=== PATIENT | male | born 1985 | race Caucasian/White ===

== ENCOUNTER 2024-02-22 09:04 | Emergency (ER) | payer MEDICAID, OTHER, SELFPAY ==
[2024-02-22 09:45] VITALS: BP 118/72; PULSE 83; RESP 16; TEMP 36.3; O2SAT 98; BMI 26.0
--- NOTE | 2024-02-22 10:05 | ECG_ITS ---
Test Reason : chest pain Blood Pressure : / mmHG Vent. Rate : 070 BPM Atrial Rate : 070 BPM P-R Int : 152 ms QRS Dur : 080 ms QT Int : 386 ms P-R-T Axes : 030 -04 -04 degrees QTc Int : 416 ms Normal sinus rhythm Normal ECG No previous ECGs available Referred By: Generic ED Physician Electronically Signed By:OLVIN HOFFMAN MD
--- NOTE | 2024-02-22 11:21 | ED.ANXIETY ---
HPI - Anxiety General Chief Complaint: Anxiety Stated Complaint: medication Time Seen by Provider: 02/22/24 11:21 Source: patient and old records reviewed Mode of arrival: ambulatory Limitations: no limitations History of Present Illness ED Provider: Torri Ochoa PA-C HPI narrative: 39-year-old [place] Macedonian speaking male with history of anxiety and depression presents to the ER for evaluation of increased anxiety and depression, over the last month, acutely worsened last 3 days. He states he recently moved here about 2 months ago from [place]. In a new place with a new job has made him very anxious and depressed. He states it is debilitating. He has not sleeping. He has significant chest pain and reports of anxiety crisis that occurs often. He has had chest pains with anxiety for years. 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 States he has been on Cymbalta and clonazepam with minimal improvement in his symptoms. Prior to this he was on a different antidepressant and a different benzodiazepine when he lived in [facility] 1 year ago and he reported no improvement with those medications either. He comes to the hospital today hoping to get med adjustments. He has a PCP in the area, with appointment in 7 months. Does not have a psychiatrist or therapist. He denies any suicidal or homicidal thoughts. No hallucinations. No drugs or alcohol. MD complaint: anxiety and other (Chest pain and depression) Onset (ago): month(s) Symptoms: chest pain and extremity numbness/tingling Severity: severe Quality: worsening Place: home History of similar episodes: Yes Provoking factors: other (Moving to a new location) Relieving factors: nothing Exacerbating factors: nothing Associated symptoms: chest pain and malaise Related Data Allergies Allergy/AdvReac Type Severity Reaction Status Date / Time No Known Allergies Allergy Verified 02/22/24 10:02 Review of Systems Review of Systems: Yes all other systems are reviewed and are negative [facility] Social History Social History Advance Directives: No Advance Directives Information Provided: No Physical Exam Vital Signs: Vital Signs: Last Vital Signs Temp 97.3 F 02/22/24 09:45 Pulse 83 02/22/24 09:45 Resp 16 02/22/24 09:45 BP 118/72 02/22/24 09:45 Pulse Ox 98 02/22/24 09:45 O2 Del Method Room Air 02/22/24 09:45 BMI result Body Mass Index 26.0 Appearance: Alert. Oriented X3. No acute distress. Head: normocephalic, atraumatic. Eyes: Pupils equal, round and reactive to light. ENT: Pharynx normal. No tonsillar swelling or exudate. Neck: Normal inspection. Neck supple. CVS: Normal heart rate and rhythm. Pulses normal. Respiratory: No respiratory distress. Breath sounds normal. Abdomen: Soft and nontender. +BS x4 Skin: Skin warm and dry. Normal skin color. Normal skin turgor. No rashes. Extremities: No lower extremity edema. No joint swelling. Neuro/psych: Oriented X 3. No motor deficit. No sensory deficit. CN II-XII intact. Normal speech and cognition. no SI or HI. good insight and judgement Course Reevaluation(s) Reevaluation #1: Physician observation started at 12:41. Patient placed in physician observation because patient is awaiting CARE team evaluation for the possible need of inpatient psych admission. At the time observation was started patient's vital signs were stable. Patient is alert and oriented. Neuro exam is non-focal. CV: RRR and lungs are clear. Will continue to monitor. Time: 12:41 Medical Decision Making Medical Decision Making [facility] Narrative: 39-year-old male presents to the ER for evaluation of worsening anxiety and depression. Symptoms accompanying this are insomnia, chest pain, fatigue. Chest pain is acute on chronic, has had cardiac workup in the past. EKG here without any ischemic changes. Patient's lab workup is unremarkable. He is medically cleared to be seen by the care team for evaluation. Differential Diagnosis Differential Diagnoses: The differential diagnosis associated with the presentation includes anxiety disorder, substance induced mood disorder, acute psychosis, schizophrenia, schizoaffective disorder, PTSD, bipolar disorder, major depression with psychotic features Admission/Observation Consideration of admission/observation: Escalation of care including admission/observation considered Lab Data [facility] Lab Attestation statement: I reviewed the patient's lab results. Normal CBC 02/22/24 11:59 02/22/24 11:59 Labs: Lab Results 02/22/24 Range/Units 11:59 WBC 9.6 (4.8-10.8) X10*3/uL RBC 4.87 (4.60-5.80) X10*6/uL Hgb 15.7 (14.0-18.0) g/dl Hct 44.2 (42.0-52.0) % MCV 90.8 (80.0-98.0) fL MCH 32.2 (27.0-33.0) pg MCHC 35.5 (31.0-36.0) g/dl RDW 12.2 (11.0-16.0) % Plt Count 191 (160-400) X10*3/uL MPV 9.4 (9.4-12.4) fL Immature Gran % (Auto) 0.3 (0.0-0.4) % Neut % (Auto) 55.0 (45-73) % Lymph % (Auto) 35.4 (20-40) % [place] % (Auto) 7.2 (2-11) % Eos % (Auto) 1.7 (0-4) % Baso % (Auto) 0.4 (0-2) % Lymph # (Auto) 3.4 (1.2-4.9) X10*3/uL [place] # (Auto) 0.7 (0.1-1.2) X10*3/uL Eos # (Auto) 0.2 (0.0-0.4) X10*3/uL Baso # (Auto) 0.0 (0.0-0.2) X10*3/uL Abs Immat Gran (auto) 0.03 (0.00-0.03) X10*3/uL Absolute Neuts (auto) 5.3 (2.0-8.3) x10*3/uL Absolute Nucleated RBC 0.000 (0.0-0.012) X10*3/uL Nucleated RBC % (auto) 0.0 (0.0-0.2) /100WBC Sodium 143 (135-145) mmol/L Potassium 4.2 (3.3-5.1) mmol/L Chloride 109 H (96-108) mmol/L Carbon Dioxide 26 (22-29) mmol/L Anion Gap 12 (12-20) BUN 9 (9-16) mg/dL Creatinine 1.00 (0.5-1.4) mg/dL Estim Creat Clear Calc 99.1 Estimated GFR > 60 Random Glucose 100 (60-115) mg/dL Calcium 9.0 (8.4-10.2) mg/dL Magnesium 1.9 (1.6-2.6) mg/dL Total Bilirubin 0.3 (0.0-1.0) mg/dL Direct Bilirubin 0.1 (0.0-0.5) mg/dL AST 23 (5-37) U/L ALT 20 (0-40) U/L Alkaline Phosphatase 76 (39-117) U/L Troponin I High Sens < 2.7 (<3.5-35.0) ng/L Total Protein 7.3 (6.5-8.0) g/dL Albumin 4.3 (3.5-5.0) g/dL Ethyl Alcohol < 10 mg/dL Prescription Management I considered prescription management with: Other (Antidepressant, antipsychotic) Social Determinants Patient?s care significantly limited by Social Determinants of Health including: Problems related to primary support group and Other Social Determinant of Health Critical Care Time Critical Care Time Critical Care Time: No Discharge Plan Discharge Clinical Impression: Anxiety Depression Qualifiers: Depression Type: other depression Qualified Code(s): F32.89 - Other specified depressive episodes Patient Disposition: Still a Patient Print Language: Macedonian
[2024-02-22 12:03] LABS: MANUAL DIFF FLAG NO
[2024-02-22 12:05] LABS: Basophils Percent Auto 0.4 % (0-2); Eosinophils Absolute Auto 0.2 X10*3/uL (0.0-0.4); Eosinophils Percent Auto 1.7 % (0-4); Hematocrit 44.2 % (42.0-52.0); Hemoglobin 15.7 g/dl (14.0-18.0); Imm Gran Abs Auto 0.03 X10*3/uL (0.00-0.03); Imm Gran Pct Auto 0.3 % (0.0-0.4); Lymphocytes Absolute Auto 3.4 X10*3/uL (1.2-4.9); Lymphocytes Percent Auto 35.4 % (20-40); Mean Corpuscular HGB Conc 35.5 g/dl (31.0-36.0); Mean Corpuscular Hemoglobin 32.2 pg (27.0-33.0); Mean Corpuscular Volume 90.8 fL (80.0-98.0); Mean Platelet Volume 9.4 fL (9.4-12.4); Monocytes Absolute Auto 0.7 X10*3/uL (0.1-1.2); Monocytes Percent Auto 7.2 % (2-11); Neutrophils Absolute Auto 5.3 x10*3/uL (2.0-8.3); Platelet Count 191 X10*3/uL (160-400); Red Blood Count 4.87 X10*6/uL (4.60-5.80); Red Cell Distribution Width 12.2 % (11.0-16.0); White Blood Count 9.6 X10*3/uL (4.8-10.8)
[2024-02-22 12:27] LABS: Alanine Aminotransferase 20 U/L (0-40); Albumin Level 4.3 g/dL (3.5-5.0); Alkaline Phosphatase 76 U/L (39-117); Anion Gap 12 (12-20); Aspartate Amino Transferase 23 U/L (5-37); Bilirubin Direct 0.1 mg/dL (0.0-0.5); Bilirubin Total 0.3 mg/dL (0.0-1.0); Blood Urea Nitrogen 9 mg/dL (9-16); Carbon Dioxide 26 mmol/L (22-29); Chloride 109 mmol/L (96-108); Creatinine Clr Calc Pharmacy 99.1; Estimated Glomerular Filt Rate > 60; Ethanol < 10 mg/dL; Glucose Random 100 mg/dL (60-115); Magnesium 1.9 mg/dL (1.6-2.6); Potassium 4.2 mmol/L (3.3-5.1); Sodium 143 mmol/L (135-145); Total Protein 7.3 g/dL (6.5-8.0)
[2024-02-22 12:33] LABS: Troponin-I High Sensitivity < 2.7 ng/L (<3.5-35.0)
[2024-02-22 14:00] VITALS: BP 123/87; PULSE 61; RESP 17; TEMP 36.5; O2SAT 98
--- NOTE | 2024-02-22 19:20 | PC.NURSE ---
care team at bedside with video professor of sport management
[2024-02-22 19:58] VITALS: BP 126/95; PULSE 84; RESP 16; TEMP 36.7; O2SAT 99
[2024-02-22 20:00] VITALS: BP 126/95; PULSE 84; RESP 16; TEMP 36.7; O2SAT 99
== END 2024-02-22 20:01 | disposition home or self-care (01) ==
PROVIDERS: Physician Assistant; Emergency Provider Emergency Medicine
DX: F41.9 Anxiety disorder, unspecified (principal); F33.1 Major depressive disorder, recurrent, moderate; R07.89 Other chest pain; Z79.899 Other long term (current) drug therapy
CPT/HCPCS: 36415; 80048; 80076; 80307; 83735; 84484; 85025; 93005; 99283; 99284

== ENCOUNTER → 2024-02-22 10:05 | Outpatient (BNV) | payer MEDICAID, SELFPAY | PROVIDERS: Emergency Provider Emergency Medicine; Visit Provider Internal Medicine Cardiovascular Disease | DX: R07.9 Chest pain, unspecified (principal) | CPT/HCPCS: 93010 ==

== ENCOUNTER 2024-02-29 10:15 | Emergency (ER) | payer MEDICAID, OTHER, SELFPAY ==
[2024-02-29 10:18] VITALS: BP 132/96; PULSE 79; RESP 20; TEMP 36.4; O2SAT 98; BMI 28.8
== END 2024-02-29 20:08 | disposition left against medical advice (07) ==
PROVIDERS: Emergency Provider Emergency Medicine
DX: F41.8 Other specified anxiety disorders (principal)
CPT/HCPCS: 99281

== ENCOUNTER 2024-03-17 09:04 | Emergency (ER) | payer MEDICAID, OTHER, SELFPAY ==
[2024-03-17 09:14] VITALS: BP 115/76; PULSE 86; RESP 16; TEMP 36.9; BMI 29.2
[2024-03-17 13:19] LABS: MANUAL DIFF FLAG NO
[2024-03-17 13:26] LABS: Basophils Percent Auto 0.5 % (0-2); Eosinophils Absolute Auto 0.1 X10*3/uL (0.0-0.4); Eosinophils Percent Auto 1.3 % (0-4); Hematocrit 43.7 % (42.0-52.0); Hemoglobin 15.2 g/dl (14.0-18.0); Imm Gran Abs Auto 0.02 X10*3/uL (0.00-0.03); Imm Gran Pct Auto 0.2 % (0.0-0.4); Lymphocytes Absolute Auto 2.7 X10*3/uL (1.2-4.9); Lymphocytes Percent Auto 32.3 % (20-40); Mean Corpuscular HGB Conc 34.8 g/dl (31.0-36.0); Mean Corpuscular Hemoglobin 31.9 pg (27.0-33.0); Mean Corpuscular Volume 91.8 fL (80.0-98.0); Mean Platelet Volume 9.3 fL (9.4-12.4); Monocytes Absolute Auto 0.7 X10*3/uL (0.1-1.2); Monocytes Percent Auto 8.1 % (2-11); Neutrophils Absolute Auto 4.8 x10*3/uL (2.0-8.3); Neutrophils Percent Auto 57.6 % (45-73); Platelet Count 191 X10*3/uL (160-400); Red Blood Count 4.76 X10*6/uL (4.60-5.80); Red Cell Distribution Width 11.9 % (11.0-16.0); White Blood Count 8.3 X10*3/uL (4.8-10.8)
[2024-03-17 13:31] LABS: Amphetamine Screen Urine Not Detected (Not Detect); Barbiturates, Urine Not Detected (Not Detect); Benzodiazepines Screen Urine POSITIVE (Not Detect); Buprenorphine Scr Not Detected (Not Detect); Cannabinoid Screen Urine Not Detected (Not Detect); Cocaine Screen Urine Not Detected (Not Detect); Fentanyl, urine Not Detected (Not Detect); Methadone Screen, Urine Not Detected (Not Detect); Opiate Screen Urine Not Detected (Not Detect); Oxycodone Screen Urine Not Detected (Not Detect); Phencyclidine Screen Urine Not Detected (Not Detect)
--- NOTE | 2024-03-17 13:33 | ED.ANXIETY ---
HPI - Anxiety General Chief Complaint: Anxiety Stated Complaint: anxiety panic attack Time Seen by Provider: 03/17/24 13:14 Source: patient Mode of arrival: ambulatory Limitations: no limitations History of Present Illness ED Provider: Charo MAO HPI narrative: This is a 39-year-old male history of anxiety, depression presenting to the ER with anxiety, depression worsening over the past few months, patient reports he recently moved here from [place], which has been causing him a lot of stress. He has no insurance. He has been taking clonazepam and bupropion with no relief of symptoms. He reports he is getting episodic anxiety that turns to panic affecting adls. He feels like he may need more medicine for this. Patient is scheduled to see a PCP in a few months however has yet to see them. He denies suicidal or homicidal ideation. Denies drugs, alcohol or tobacco. Denies medical complaints. He denies fevers, chills, chest pain, shortness of breath, nausea, vomiting, abdominal pain, headache, vision changes. Related Data Previous Rx's ?Medication ?Instructions ?Recorded bupropion HCl 150 mg tablet,12 hr 150 mg PO BID 2 weeks #28 tabs 02/22/24 sustained-release (Wellbutrin SR) clonazepam 2 mg tablet 2 mg PO BID PRN anxiety 2 weeks 02/22/24 #28 tabs clonazepam 2 mg tablet 2 mg PO BID 15 days #30 tabs 03/17/24 duloxetine 20 mg capsule,delayed 20 mg PO BID #30 caps 03/17/24 release Allergies Allergy/AdvReac Type Severity Reaction Status Date / Time No Known Allergies Allergy Verified 03/17/24 09:19 [facility] Social History Social History Advance Directives: No Physical Exam Vital Signs: Vital Signs: Last Vital Signs Temp 98.5 F 03/17/24 09:14 Pulse 86 03/17/24 09:14 Resp 16 03/17/24 09:14 BP 115/76 03/17/24 09:14 O2 Del Method Room Air 03/17/24 09:14 BMI result Body Mass Index 29.2 Course Reevaluation(s) Reevaluation #1: CBC unremarkable. Chemistry no acute findings. Patient positive for benzos however he is prescribed clonazepam. Negative salicylates, acetaminophen and ethanol. I did discuss this case with psychiatrist on-call Dr. Spears who recommends discontinuing the Wellbutrin and starting him on duloxetine, 20 mg p.o. b.i.d., patient used to take duloxetine when he was living in [place] he tells me this medicine helped him a lot. I have gone over discharge instructions with patient. He verbalizes understanding. He has optimistic, no SI no HI. No thoughts of hurting anyone. He reports his primary reason for coming in today as he has had obstacles when trying to see a primary care provider psychiatrist within a reasonable time frame. I explained to him the emergency department is not an appropriate place for refills. I will give him a 1 month supply for duloxetine. And will give him 15 days of clonazepam. Patient very happy with this plan. He has not a harm to self or others, no signs of psychosis. No indication for Section 12. This patient would not be an inpatient psychiatric admission. Plan for discharge home with PCP follow-up. Patient has a good support system. Educated patient on diagnosis and treatment plan, answered all question, patient verbalizes understanding. At this time patient will be discharged home, advised to return with new or worsening symptoms. Educated on worrisome signs and symptoms and when to return. At this time I feel comfortable discharge home. Time: 14:35 Medical Decision Making Medical Decision Making [facility] Narrative: [id number] 39-year-old male presents with recent panic attacks worsening despite clonazepam in the bupropion with no relief. Increasing life stressors. No SI or HI. Physical exam benign This is likely anxiety with acute panic. Unlikely suicidal or homicidal ideation. I do not suspect metabolic derangements. Plan medical clearance evaluation by care team Differential Diagnosis Differential Diagnoses: The differential diagnosis associated with the presentation includes This is likely anxiety with acute panic. Unlikely suicidal or homicidal ideation. I do not suspect metabolic derangements. Admission/Observation Consideration of admission/observation: Escalation of care including admission/observation considered unlikely Lab Data MDM Lab Attestation statement: I reviewed the patient's lab results. 03/17/24 13:00 03/17/24 13:00 Labs: Lab Results 03/17/24 03/17/24 03/17/24 Range/Units 12:59 13:00 13:04 WBC 8.3 (4.8-10.8) X10*3/uL RBC 4.76 (4.60-5.80) X10*6/uL Hgb 15.2 (14.0-18.0) g/dl Hct 43.7 (42.0-52.0) % MCV 91.8 (80.0-98.0) fL MCH 31.9 (27.0-33.0) pg MCHC 34.8 (31.0-36.0) g/dl RDW 11.9 (11.0-16.0) % Plt Count 191 (160-400) X10*3/uL MPV 9.3 L (9.4-12.4) fL Immature Gran % (Auto) 0.2 (0.0-0.4) % Neut % (Auto) 57.6 (45-73) % Lymph % (Auto) 32.3 (20-40) % [place] % (Auto) 8.1 (2-11) % Eos % (Auto) 1.3 (0-4) % Baso % (Auto) 0.5 (0-2) % Lymph # (Auto) 2.7 (1.2-4.9) X10*3/uL [place] # (Auto) 0.7 (0.1-1.2) X10*3/uL Eos # (Auto) 0.1 (0.0-0.4) X10*3/uL Baso # (Auto) 0.0 (0.0-0.2) X10*3/uL Abs Immat Gran (auto) 0.02 (0.00-0.03) X10*3/uL Absolute Neuts (auto) 4.8 (2.0-8.3) x10*3/uL Absolute Nucleated RBC 0.000 (0.0-0.012) X10*3/uL Nucleated RBC % (auto) 0.0 (0.0-0.2) /100WBC Sodium 139 (135-145) mmol/L Potassium 4.5 (3.3-5.1) mmol/L Chloride 107 (96-108) mmol/L Carbon Dioxide 26 (22-29) mmol/L Anion Gap 11 L (12-20) BUN 12 (9-16) mg/dL Creatinine 1.05 (0.5-1.4) mg/dL Estim Creat Clear Calc 94.9 Estimated GFR > 60 Random Glucose 103 (60-115) mg/dL Calcium 9.0 (8.4-10.2) mg/dL Magnesium 2.2 (1.6-2.6) mg/dL Total Bilirubin 0.5 (0.0-1.0) mg/dL AST 22 (5-37) U/L ALT 16 (0-40) U/L Alkaline Phosphatase 64 (39-117) U/L Total Protein 7.2 (6.5-8.0) g/dL Albumin 4.4 (3.5-5.0) g/dL Salicylates < 5.0 L (15-30) mg/dL Urine Opiates Screen Not Detected (Not Detect) Ur Buprenorphine Scrn Not Detected (Not Detect) ng/mL Ur Oxycodone Screen Not Detected (Not Detect) ng/mL Urine Methadone Screen Not Detected (Not Detect) ng/mL Urine Fentanyl Screen Not Detected (Not Detect) Acetaminophen < 3 (<30) mcg/mL Ur Barbiturates Screen Not Detected (Not Detect) Ur Phencyclidine Scrn Not Detected (Not Detect) Ur Amphetamines Screen Not Detected (Not Detect) U Benzodiazepines Scrn POSITIVE H (Not Detect) Urine Cocaine Screen Not Detected (Not Detect) U Marijuana (THC) Screen Not Detected (Not Detect) Ethyl Alcohol < 10 mg/dL External Record Review External record reviewed: Office record and Outpatient record Chronic Conditions Patient?s care impacted by: Other (anxiety, depression ) Discharge Plan Discharge Clinical Impression: Acute anxiety Patient Disposition: Home, Self-Care Instructions: Anxiety (ED) Additional Instructions: Take your medications as prescribed. If you were prescribed antibiotics today, it is important that you take your medication to their entirety, do not skip any doses, do not finish them early. Follow-up with your primary care provider this week. Return to the emergency department with new or worsening symptoms. Such as fevers, chills, chest pain, shortness of breath, nausea, vomiting, dizziness, headache, vision changes, lethargy, suicidal, homicidal ideations In case of emergency call 911 Stop taking Wellbutrin (bupropion) - this medication can cause panic attacks and anxiety Prescriptions: New duloxetine 20 mg capsule,delayed release(DR/EC) 20 mg PO BID Qty: 30 1RF clonazepam 2 mg tablet 2 mg PO BID 15 Days Qty: 30 0RF No Action bupropion HCl [Wellbutrin SR] 150 mg tablet sustained-release 12 hr 150 mg PO BID 14 Days Qty: 28 0RF clonazepam 2 mg tablet 2 mg PO BID PRN (Reason: anxiety) 14 Days Qty: 28 0RF Referrals: [facility] [Provider Group] - 1 day Noemi Potts DO [Emergency Provider] - 2 days Physician,None [Primary Care Provider] - Stand Alone Forms: Work/School Release Print Language: Faroese
[2024-03-17 13:39] LABS: Acetaminophen LAB < 3 mcg/mL (<30); Salicylate < 5.0 mg/dL (15-30)
[2024-03-17 13:39] LABS: Alanine Aminotransferase 16 U/L (0-40); Albumin Level 4.4 g/dL (3.5-5.0); Alkaline Phosphatase 64 U/L (39-117); Anion Gap 11 (12-20); Aspartate Amino Transferase 22 U/L (5-37); Bilirubin Total 0.5 mg/dL (0.0-1.0); Blood Urea Nitrogen 12 mg/dL (9-16); Carbon Dioxide 26 mmol/L (22-29); Chloride 107 mmol/L (96-108); Creatinine Clr Calc Pharmacy 94.9; Estimated Glomerular Filt Rate > 60; Ethanol < 10 mg/dL; Glucose Random 103 mg/dL (60-115); Magnesium 2.2 mg/dL (1.6-2.6); Potassium 4.5 mmol/L (3.3-5.1); Sodium 139 mmol/L (135-145); Total Protein 7.2 g/dL (6.5-8.0)
--- NOTE | 2024-03-17 14:33 | ECG_ITS ---
Test Reason : ANXIETY Blood Pressure : / mmHG Vent. Rate : 067 BPM Atrial Rate : 067 BPM P-R Int : 160 ms QRS Dur : 082 ms QT Int : 384 ms P-R-T Axes : 029 -08 -03 degrees QTc Int : 405 ms Normal sinus rhythm Normal ECG When compared with ECG of 22-FEB-2024 10:08, No significant change was found Referred By: Santa Singh Electronically Signed By:Toney Choudhary
[2024-03-17 15:03] VITALS: BP 118/72; PULSE 82; RESP 16; TEMP 36.7; O2SAT 96
[2024-03-17 15:12] LABS: Troponin-I High Sensitivity < 2.7 ng/L (<3.5-35.0)
== END 2024-03-17 15:05 | disposition home or self-care (01) ==
PROVIDERS: Physician Assistant; Emergency Provider Emergency Medicine
DX: F41.9 Anxiety disorder, unspecified (principal); F32.A Depression, unspecified; Z79.899 Other long term (current) drug therapy
CPT/HCPCS: 36415; 80053; 80143; 80179; 80307; 83735; 84484; 85025; 93005; 99283

== ENCOUNTER → 2024-03-17 14:33 | Outpatient (BNV) | payer MEDICAID, SELFPAY | PROVIDERS: Emergency Provider Emergency Medicine; Visit Provider Internal Medicine Cardiovascular Disease | DX: F41.9 Anxiety disorder, unspecified (principal) | CPT/HCPCS: 93010 ==

== ENCOUNTER 2024-04-02 10:02 | Emergency (ER) | payer MEDICAID, OTHER, SELFPAY ==
[2024-04-02 10:05] VITALS: BP 107/70; PULSE 75; RESP 18; TEMP 36.8; O2SAT 96; BMI 26.2
--- NOTE | 2024-04-02 11:07 | ED_ITS ---
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 Patient reports about 2 months ago he moved here and he is Kiny[place] speaking. He was seen in the emergency room in February and prescribed 2 weeks' worth of Klonopin. Was seen here on March 17 and at that time was discontinued from Wellbutrin and put on duloxetine. He was given a 2 week supply of Klonopin. Is here today seeking refills for both medication. Does not have a primary care doctor appointment for 7 months. He did attempt to call [facility] to set up a psychiatrist however had difficulties secondary to underlying language barrier. He has no physical complaints. He does report anxiety and depression but no thoughts of self-harm. He tells me that he is on c Klonopin 2 mg twice daily for years. Related Data Previous Rx's ?Medication ?Instructions ?Recorded bupropion HCl 150 mg tablet,12 hr 150 mg PO BID 2 weeks #28 tabs 02/22/24 sustained-release (Wellbutrin SR) clonazepam 2 mg tablet 2 mg PO BID PRN anxiety 2 weeks 02/22/24 #28 tabs clonazepam 2 mg tablet 2 mg PO BID 15 days #30 tabs 03/17/24 duloxetine 20 mg capsule,delayed 20 mg PO BID #30 caps 03/17/24 release clonazepam 2 mg tablet 2 mg PO BID #28 tabs 04/02/24 Allergies Allergy/AdvReac Type Severity Reaction Status Date / Time No Known Allergies Allergy Verified 04/02/24 10:09 Review of Systems Review of Systems: Yes all other systems are reviewed and are negative Constitutional: Constitutional: Reports no additional constitutional complai nts, Denies body ache(s), Denies chills, Denies fever(s), Denies headache(s) and Denies weakness Eyes: Eyes: Reports no additional eye complaints and Denies change in vision ENT: Reports system reviewed and no additional complaints, except as documented, Denies dizziness, Denies headache(s), Denies nasal congestion, Denies nasal discharge and Denies neck pain Cardiovascular: Cardiovascular: Reports no additional cardiovascular complaints, Denies chest pain, Denies leg edema and Denies dyspnea Respiratory: Respiratory: Reports no additional respiratory complaints, Denies cough and Denies dyspnea Gastrointestinal: Gastrointestinal: Reports no additional gastrointestinal complaints, Denies abdominal pain, Denies diarrhea, Denies nausea and Denies vomiting Genitourinary: Genitourinary: Denies urinary incontinence Musculoskeletal: Musculoskeletal: Reports no additional musculoskeletal complaints, Denies back pain, Denies arthralgias, Denies joint swelling, Denies neck pain, Denies numbness and Denies tingling Integumentary/Breasts: Skin/Breast: Reports system reviewed and no additional complaints, except as docu and Denies rash Neurologic: Reports system reviewed and no additional complaints, except as documented, Denies Abnormal speech present, Denies dizziness, Denies headache(s), Denies numbness, Denies tingling and Denies weakness Psychiatric: Psychiatric: Reports anxiety, Reports depression, Denies homicidal ideation and Denies suicidal ideation [facility] Past Medical History Attestation statement: The following information was validated with the patient. Source: old records reviewed and nursing notes reviewed Social History Social History Advance Directives: No Advance Directives Information Provided: No Do you have a plan to hurt others: No Plan Physical Exam ED Vital Signs: Vital Signs - 24 hr 04/02/24 10:05 Temperature 98.3 F Pulse Rate 75 Respiratory Rate 18 Blood Pressure 107/70 Pulse Oximetry 96 Oxygen Delivery Method Room Air BMI result Body Mass Index 26.2 Const General: cooperative, healthy appearing, comfortable and no acute distress Orientation/consciousness: patient oriented x3 Limitations: no limitations HENMT Head: Yes normal to inspection Ears: hearing grossly normal bilaterally General nose exam: Normal external nose present Face and sinus: Yes normal facial exam Mouth: Normal oral and palatal mucosa present Throat: Yes posterior oropharynx normal Eyes General: appearance normal, both eyes and all related structures Pupils: Equal, round and reactive pupils present Neck Neck: Yes normal visual inspection Chest Chest palpation & inspection: normal inspection of the chest Resp Effort & Inspection: normal respiratory effort Auscultation: clear to auscultation bilaterally Cardio Rate: regular rate Rhythm: regular rhythm Peripheral pulses: Peripheral pulses 2+ throughout GI Inspection: Yes normal to inspection Palpation (GI): Soft to palpation and nontender Auscultation: normal bowel sounds Back/Spine/Pelvis Thoracic/Lumbar Spine: thoracic and lumbar spine normal to inspection Skin General skin exam: no rashes or lesions noted Neuro General: patient oriented x3, no focal motor deficits and normal sensation to monofilament Cranial nerves: Yes Equal, round and reactive pupils present Cognition (Neuro): normal cognition Speech: No Abnormal speech present Gait exam (Neuro): Normal gait present Motor exam (neuro): 5/5 motor strength present throughout Extrem General: Yes normal to inspection Medical Decision Making Medical Decision Making MDM Narrative: 39-year-old male who has history of anxiety and depression who is currently taking duloxetine and Klonopin daily presents to the ER with complaints of seeking med refill for his duloxetine and Klonopin. Patient reports about 2 months ago he moved here and he is Kinyarw[place] speaking. He was seen in the emergency room in February and prescribed 2 weeks' worth of Klonopin. Was seen here on March 17 and at that time was discontinued from Wellbutrin and put on duloxetine. He was given a 2 week supply of Klonopin. Is here today seeking refills for both medication. Does not have a primary care doctor appointment for 7 months. He did attempt to call [facility] to set up a psychiatrist however had difficulties secondary to underlying language barrier. He has no physical complaints. He does report anxiety and depression but no thoughts of self-harm. He tells me that he is on c Klonopin 2 mg twice daily for years. No concern for acute ingestion or trauma. No physical complaints or safety concerns I was able to reviewed the previous ER visits. He was given a refill on the duloxetine which she was unaware of. I explained to him that he can go to the pharmacy and ask for this to be refilled. As far as his Klonopin he has been on this senior care and so in order to avoid withdrawal from benzos I do believe it is important to continue to refill his medication although he may benefit in the future with a med review. I did speak to our care team. I explained to them the patient's difficulty with his language barrier and setting up outpatient care. They did inform me that [facility] has a walk-in location and [place] with stationary equipment mechanic services where they will do a mental health intake and give patient the additional resources that he may need. This is explained to the patient with the [place] stationary equipment mechanic. I will give him a 2 week supply of the Klonopin. I explained to him that we can only give him a brief supply at this time. Differential Diagnosis Differential Diagnoses: The differential diagnosis associated with the presentation includes Anxiety, depression Admission/Observation Consideration of admission/observation: Escalation of care including admission/observation considered No safety concerns to suggest need for mental health evaluation in the emergency room and inpatient hospitalization External Record Review External record reviewed: Outside ED record Discharge Plan Discharge Clinical Impression: Anxiety Patient Disposition: Home, Self-Care Instructions: Anxiety (ED) Additional Instructions: Go to [address] [facility] ([facility] walk in) You have a refill on your duloxetine Prescriptions: New clonazepam 2 mg tablet 2 mg PO BID Qty: 28 0RF No Action duloxetine 20 mg capsule,delayed release(DR/EC) 20 mg PO BID Qty: 30 1RF clonazepam 2 mg tablet 2 mg PO BID 15 Days Qty: 30 0RF bupropion HCl [Wellbutrin SR] 150 mg tablet sustained-release 12 hr 150 mg PO BID 14 Days Qty: 28 0RF clonazepam 2 mg tablet 2 mg PO BID PRN (Reason: anxiety) 14 Days Qty: 28 0RF Referrals: Physician,None [Primary Care Provider] - 1 week Interventions: ED Discharge Assessment Last Done: 04/02/24 11:45 Print Language: Kinyarwanda
[2024-04-02 11:45] VITALS: BP 107/70; PULSE 75; RESP 18; TEMP 36.8; O2SAT 96
== END 2024-04-02 11:46 | disposition home or self-care (01) ==
PROVIDERS: Emergency Provider Emergency Medicine
DX: Z76.0 Encounter for issue of repeat prescription (principal); F32.A Depression, unspecified; F41.9 Anxiety disorder, unspecified
CPT/HCPCS: 99282

== ENCOUNTER 2024-04-29 12:25 | Outpatient (REF) | payer MEDICAID, OTHER, SELFPAY ==
[2024-04-29 13:23] LABS: MANUAL DIFF FLAG NO
[2024-04-29 13:35] LABS: Basophils Percent Auto 0.4 % (0-2); Eosinophils Absolute Auto 0.1 X10*3/uL (0.0-0.4); Eosinophils Percent Auto 1.1 % (0-4); Hematocrit 42.8 % (42.0-52.0); Hemoglobin 15.2 g/dl (14.0-18.0); Imm Gran Abs Auto 0.05 X10*3/uL (0.00-0.03); Imm Gran Pct Auto 0.5 % (0.0-0.4); Lymphocytes Absolute Auto 3.1 X10*3/uL (1.2-4.9); Lymphocytes Percent Auto 31.1 % (20-40); Mean Corpuscular HGB Conc 35.5 g/dl (31.0-36.0); Mean Corpuscular Volume 90.1 fL (80.0-98.0); Mean Platelet Volume 9.8 fL (9.4-12.4); Monocytes Absolute Auto 0.8 X10*3/uL (0.1-1.2); Monocytes Percent Auto 7.6 % (2-11); Neutrophils Absolute Auto 5.9 x10*3/uL (2.0-8.3); Neutrophils Percent Auto 59.3 % (45-73); Platelet Count 202 X10*3/uL (160-400); Red Blood Count 4.75 X10*6/uL (4.60-5.80); Red Cell Distribution Width 12.5 % (11.0-16.0)
[2024-04-29 13:46] LABS: Appearance Urine Clear; Color Urine Yellow; Glucose Urine UA Negative (Negative); Leukocyte Esterase Urine Negative (Negative); Nitrite Urine Negative (Negative); PH 5.5 (5.0-9.0); Urine Blood Negative (Negative); Urine Ketones Negative (Negative); Urine Protein Negative (Neg-Trace)
[2024-04-29 13:59] LABS: Bacteria Urine None Seen (None Seen); Hyaline Casts Urine 0-2 /LPF (0-2); RBC Urine 0-2 /HPF (0-2); Squamous Epithelial Cell Urine 0-2 /HPF (0-2); WBC Urine 0-5 /HPF (0-5)
[2024-04-29 14:03] LABS: Anion Gap 11 (12-20); Blood Urea Nitrogen 15 mg/dL (9-16); Calcium 9.7 mg/dL (8.4-10.2); Carbon Dioxide 28 mmol/L (22-29); Chloride 106 mmol/L (96-108); Cholesterol 190 mg/dL (<200); Estimated Glomerular Filt Rate > 60; Glucose Random 97 mg/dL (60-115); HDL Cholesterol 43 mg/dL (>40); LDL Cholesterol Calculated 128 mg/dL (<100); Potassium 4.6 mmol/L (3.3-5.1); Sodium 140 mmol/L (135-145); Triglycerides 95 mg/dL (<150)
[2024-04-29 14:07] LABS: Prostate Specific Antigen 0.89 ng/mL (<0.05-4.0)
[2024-04-29 14:21] LABS: HBS Num1 166.41 mIU/mL (0-7.99); HBc Num1 0.07 S/CO (0.00-0.79); HBsAGNum1 0.35 S/CO (0.00-0.99); HIV AB/AG Nonreactive (Nonreactive); HIV Num 1 0.06 S/CO (0.00-0.99); Hepatitis A Antibody IgM 0.15 Index (0-0.79); Hepatitis B Core Antibody Nonreactive (Nonreactive); Hepatitis B Surface Antigen Negative (Negative); ~HepC Num1 0.12 S/CO (0.00-0.79); ~Hepatitis A Antibody IgM Nonreactive (Nonreactive); ~Hepatitis B Surface Antibody REACTIVE (Nonreactive); ~Hepatitis C Antibody Nonreactive (Nonreactive)
[2024-05-02 22:48] LABS: RPR Rapid Plasma Reagin NON-REACTIVE (NON-REACTIVE)
== END 2024-04-29 12:26 | disposition home or self-care (01) ==
LOC: HO.HHCL 12:25
PROVIDERS: Visit Provider Registered Nurse
DX: Z00.00 Encounter for general adult medical examination without abnormal findings (principal); R35.0 Frequency of micturition
CPT/HCPCS: 36415; 80048; 80061; 81001; 84153; 85025; 86592; 86704; 86706; 86709; 86803; 87340; 87389

== ENCOUNTER 2024-05-30 11:38 | Outpatient (REF) | payer MEDICAID, OTHER, SELFPAY ==
[2024-06-02 05:48] LABS: TS Negative Control Passed; TS Panel A 0; TS Panel B 0; TS Positive Control Passed; TSpotTB Negative (Negative)
== END 2024-05-30 11:39 | disposition home or self-care (01) ==
LOC: HO.HHCL 11:38
PROVIDERS: Visit Provider Registered Nurse
DX: Z11.1 Encounter for screening for respiratory tuberculosis (principal)
CPT/HCPCS: 36415; 86481

== ENCOUNTER 2024-06-07 11:47 | Outpatient (REF) | payer MEDICAID, OTHER, SELFPAY ==
[2024-06-07 15:02] LABS: CT PCR NOT DETECTED (Not Detect.); NG PCR NOT DETECTED (Not Detect.)
[2024-06-11 19:48] LABS: Testosterone, Free 79.8 pg/mL (35.0-155.0); Testosterone, Total 361 ng/dL (250-1100)
== END 2024-06-07 11:48 | disposition home or self-care (01) ==
LOC: HO.HHCL 11:47
PROVIDERS: Referring Provider Nurse Practitioner Primary Care; Visit Provider Registered Nurse
DX: N52.9 Male erectile dysfunction, unspecified (principal); R35.0 Frequency of micturition; R30.0 Dysuria; Z01.84 Encounter for antibody response examination
CPT/HCPCS: 36415; 84402; 84403; 86735; 86762; 86765; 87491; 87591

== ENCOUNTER → 2024-06-08 11:23 | Outpatient (BNVA) | payer SELFPAY | DX: Z02.89 Encounter for other administrative examinations (principal) ==

== ENCOUNTER 2024-08-18 13:09 | Outpatient (REF) | payer MEDICAID, OTHER, SELFPAY ==
[2024-08-18 14:31] LABS: Glucose Random 86 mg/dL (60-115)
[2024-08-18 14:50] LABS: Alanine Aminotransferase 29 U/L (0-40); Albumin Level 4.4 g/dL (3.5-5.0); Alkaline Phosphatase 70 U/L (39-117); Anion Gap 9 (12-20); Aspartate Amino Transferase 32 U/L (5-37); Bilirubin Total 0.4 mg/dL (0.0-1.0); Blood Urea Nitrogen 11 mg/dL (9-16); Calcium 9.5 mg/dL (8.4-10.2); Carbon Dioxide 29 mmol/L (22-29); Chloride 107 mmol/L (96-108); Estimated Glomerular Filt Rate > 60; Glucose Random 85 mg/dL (60-115); Magnesium 2.1 mg/dL (1.6-2.6); Potassium 3.9 mmol/L (3.3-5.1); Sodium 141 mmol/L (135-145); Total Protein 7.1 g/dL (6.5-8.0)
[2024-08-18 14:56] LABS: Cortisol Random 7.5 ug/dL
[2024-08-18 15:08] LABS: Ferritin 133 ng/mL (20-250); TSH reflex Free T4 1.98 uIU/mL (0.32-4.0); Vitamin D 25-OH Total 45.3 ng/mL (>30)
[2024-08-18 15:11] LABS: Folate 9.6 ng/mL (> or = 4.0); Vitamin B12 264 pg/mL (200-900)
== END 2024-08-18 13:10 | disposition home or self-care (01) ==
LOC: HO.CHCLDS 13:09
PROVIDERS: Visit Provider Internal Medicine
DX: F43.23 Adjustment disorder with mixed anxiety and depressed mood (principal)
CPT/HCPCS: 36415; 80053; 82306; 82533; 82570; 82607; 82728; 82746; 82947; 83735; 84443

== ENCOUNTER 2024-11-26 10:29 | Emergency (ER) | payer MEDICAID, OTHER, SELFPAY ==
--- NOTE | 2024-11-26 | ECG_ITS ---
Test Reason : CP W ANXIETY Blood Pressure : */* mmHG Vent. Rate : 83 BPM Atrial Rate : 83 BPM P-R Int : 142 ms QRS Dur : 74 ms QT Int : 350 ms P-R-T Axes : 44 3 1 degrees QTcB Int : 411 ms Normal sinus rhythm Normal ECG When compared with ECG of 17-Mar-2024 14:40, No significant change was found Referred By: Generic ED Physician Electronically Signed By: OLVIN HOFFMAN MD
[2024-11-26 10:31] VITALS: BP 104/74; PULSE 87; RESP 16; TEMP 36.6; O2SAT 100; BMI 26.6
[2024-11-26 11:05] LABS: MANUAL DIFF FLAG NO
--- NOTE | 2024-11-26 11:05 | ED_ITS ---
HPI - General Adult General Chief complaint: Psychiatric Symptoms Stated complaint: anxiety Time Seen by Provider: 11/26/24 11:05 Source: patient and room cooler installer (all interactions with this patient were facilitated with an [facility] [place] room cooler installer) Mode of arrival: ambulatory Limitations: language barrier (all interactions with this patient were facilitated with an [facility] [place] room cooler installer) History of Present Illness ED Provider: Dominga Krishnamurthy PA-C HPI narrative: Patient is a 39 year old assigned male at with a history of bipolar disorder - not currently medication compliant presenting to the emergency department today with increased anxiety. Patient states that he has felt much more anxious over the last 2 weeks and he has not been taking any of his medications as he awaits to establish care. Patient states that he does have some occasional SI with thoughts of overdose. Patient denies any dizziness, lightheadedness, abdominal pain, nausea, vomiting, fever, chills, blurry vision, double vision, loss of vision, chest pain, difficulty breathing, shortness of breath, back pain, night sweats, pain with urination, increased urinary frequency, increased urinary urgency, blood in his urine or stool, syncope or a near syncopal episode, recent trauma or falls, bowel incontinence, bladder incontinence, or any other complaints at this time. Relieving factors: none Exacerbating factors: none Associated symptoms: denies other symptoms Treatments prior to arrival: none Related Data Home Medications ?Medication ?Instructions ?Recorded ?Confirmed divalproex 500 mg tablet,delayed 500 mg PO BID 11/26/24 11/26/24 release (Depakote) nicotine (polacrilex) 4 mg gum 4 mg PO Q2H PRN Nicotine Cravings 11/26/24 11/26/24 nicotine 21 mg/24 hr daily 1 patch topical QAM nicotine 11/26/24 11/26/24 transdermal patch pregabalin 150 mg capsule (Lyrica) 150 mg PO BEDTIME 11/26/24 11/26/24 propranolol 40 mg tablet 40 mg PO BID PRN Anxiety 11/26/24 11/26/24 quetiapine 200 mg tablet 200 mg PO BEDTIME 11/26/24 11/26/24 Allergies Allergy/AdvReac Type Severity Reaction Status Date / Time shellfish derived [shellfish] Allergy Unknown Verified 11/26/24 10:47 Review of Systems 2 Constitutional: Constitutional: Reports no additional constitutional complaints, Denies chills, Denies fever(s) and Denies night sweats Eyes: Eyes: Reports no additional eye complaints, Denies blurry vision, Denies change in vision, Denies diplopia, Denies eye discharge, Denies loss of vision and Denies eye pain ENT: Denies dizziness Cardiovascular: Cardiovascular: Reports no additional cardiovascular complaints, Denies chest pain, Denies lightheadedness, Denies Loss of Consciousness and Denies dyspnea Respiratory: Respiratory: Reports no additional respiratory complaints and Denies dyspnea Gastrointestinal: Gastrointestinal: Reports no additional gastrointestinal complaints, Denies abdominal pain, Denies melena, Denies hematochezia, Denies change in bowel habits and Denies change in stool character Genitourinary: Genitourinary: Reports no additional male genitourinary complaints, Denies hematuria, Denies oliguria, Denies difficulty urinating, Denies dysuria, Denies urinary frequency, Denies urinary hesitancy, Denies urinary incontinence and Denies urinary urgency Musculoskeletal: Musculoskeletal: Reports no additional musculoskeletal complaints, Denies numbness and Denies tingling Neurologic: Denies dizziness, Denies loss of vision, Denies numbness and Denies tingling Psychiatric: Psychiatric: Reports anxiety and Reports suicidal ideation Endocrine: Endocrine: Reports no additional endocrine complaints Hematologic/Lymphatic: Hematologic/Lymphatic: Reports no additional hematologic/lymphatic complaints Allergic/Immunologic: Allergic/Immunologic: Reports no additional allergic/immunologic complaints PMFSH Past Medical History Attestation statement: The following information was validated with the patient. Source: old records reviewed and nursing notes reviewed Social History Social History Smoked in Last 30 Days: Yes Use of substances other than those prescribed or required for medical reasons: No Advance Directives: No Advance Directives Information Provided: No Physical Exam ED Vital Signs: Vital Signs - 24 hr 11/26/24 10:31 11/26/24 12:27 Temperature 97.9 F Pulse Rate 87 76 Respiratory Rate 16 16 Blood Pressure 104/74 117/69 Pulse Oximetry 100 97 Oxygen Delivery Method Room Air Room Air BMI result Body Mass Index 26.6 Const General: cooperative, no acute distress, alert and awake Nutritional Appearance: well nourished Orientation/consciousness: patient oriented x3 Limitations: no limitations HENMT Head: Yes normal to inspection and Yes atraumatic Ears: hearing grossly normal bilaterally and external ears normal General nose exam: Normal external nose present, no nasal discharge noted and no epistaxis Face and sinus: Yes normal facial exam, No abrasion and No laceration Mouth: Normal oral and palatal mucosa present, no drooling and no muffled voice Eyes General: appearance normal, both eyes and all related structures Periorbital: periorbital findings normal Eyelids: Yes eyelids normal Conjunctivae: conjunctivae normal Pupils: Equal, round and reactive pupils present EOM: EOMs intact bilaterally Neck Neck: Yes normal visual inspection, Yes full ROM and Yes no lymphadenopathy Chest Chest palpation & inspection: normal inspection of the chest Resp Effort & Inspection: normal respiratory effort and able to speak in complete sentences GI Inspection: Yes normal to inspection Neuro General: patient oriented x3, moves all extremities and CN's II-XI intact bilaterally Cranial nerves: Yes Equal, round and reactive pupils present Cognition (Neuro): normal cognition Extrem General: Yes normal to inspection, Yes full ROM and Yes capillary refill normal Psych Appearance: grossly normal Mental Status: mental status grossly normal Affect: Sad affect present Attitude: Guarded attititude/behavior present Thought content: Suicidality present Medical Decision Making Medical Decision Making [facility] Narrative: Patient is a 39 year old assigned male at with a history of bipolar disorder - not currently medication compliant presenting to the emergency department today with increased anxiety. Patient's physical exam was as noted in the physical exam portion of this note. Patient's blood work was unremarkable. Patient's urine showed no acute process. Patient's EKG was unremarkable. I explained my physical exam findings as well as all test results to the patient. I answered all questions asked by the patient. Patient is awaiting CARE team evaluation. Patient's disposition will be determined after CARE team evaluation. Differential Diagnosis Differential Diagnoses: The differential diagnosis associated with the presentation includes SI Anxiety Increased anxiety Medication non-compliance Admission/Observation Consideration of admission/observation: Escalation of care including admission/observation considered Patient's disposition will be determined after CARE Team evaluation. Lab Data [facility] Lab Attestation statement: I reviewed the patient's lab results. My interpretation of these results are in the [facility] Rationale portion of this note. 11/26/24 11:00 11/26/24 11:00 Labs: Lab Results 11/26/24 Range/Units 11:00 WBC 9.0 (4.8-10.8) X10*3/uL RBC 4.91 (4.60-5.80) X10*6/uL Hgb 15.8 (14.0-18.0) g/dl Hct 43.1 (42.0-52.0) % MCV 87.8 (80.0-98.0) fL MCH 32.2 (27.0-33.0) pg MCHC 36.7 H (31.0-36.0) g/dl RDW 12.0 (11.0-16.0) % Plt Count 200 (160-400) X10*3/uL MPV 9.6 (9.4-12.4) fL Immature Gran % (Auto) 0.8 H (0.0-0.4) % Neut % (Auto) 58.5 (45-73) % Lymph % (Auto) 32.3 (20-40) % [place] % (Auto) 7.0 (2-11) % Eos % (Auto) 1.1 (0-4) % Baso % (Auto) 0.3 (0-2) % Lymph # (Auto) 2.9 (1.2-4.9) X10*3/uL [place] # (Auto) 0.6 (0.1-1.2) X10*3/uL Eos # (Auto) 0.1 (0.0-0.4) X10*3/uL Baso # (Auto) 0.0 (0.0-0.2) X10*3/uL Abs Immat Gran (auto) 0.07 H (0.00-0.03) X10*3/uL Absolute Neuts (auto) 5.3 (2.0-8.3) x10*3/uL Absolute Nucleated RBC 0.000 (0.0-0.012) X10*3/uL Nucleated RBC % (auto) 0.0 (0.0-0.2) /100WBC Sodium 139 (135-145) mmol/L Potassium 4.3 (3.3-5.1) mmol/L Chloride 104 (96-108) mmol/L Carbon Dioxide 27 (22-29) mmol/L Anion Gap 12 (12-20) BUN 11 (9-16) mg/dL Creatinine 1.09 (0.5-1.4) mg/dL Estim Creat Clear Calc 88.0 Estimated GFR > 60 Random Glucose 95 (60-115) mg/dL Calcium 9.4 (8.4-10.2) mg/dL Total Bilirubin 0.7 (0.0-1.0) mg/dL AST 186 H (5-37) U/L ALT 57 H (0-40) U/L Alkaline Phosphatase 71 (39-117) U/L Total Protein 7.8 (6.5-8.0) g/dL Albumin 4.4 (3.5-5.0) g/dL Urine Color Yellow Urine Appearance Clear Urine pH 6.5 (5.0-9.0) Ur Specific [place] 1.010 (1.005-1.025) Urine Protein Negative (Neg-Trace) mg/dL Urine Glucose (UA) Negative (Negative) mg/dL Urine Ketones Trace (Negative) mg/dL Urine Blood Negative (Negative) Urine Nitrite Negative (Negative) Ur Leukocyte Esterase Negative (Negative) Salicylates < 5.0 L (15-30) mg/dL Urine Opiates Screen Not Detected (Not Detect) Ur Buprenorphine Scrn Not Detected (Not Detect) ng/mL Ur Oxycodone Screen Not Detected (Not Detect) ng/mL Urine Methadone Screen Not Detected (Not Detect) ng/mL Urine Fentanyl Screen Not Detected (Not Detect) Acetaminophen < 3 (<30) mcg/mL Ur Barbiturates Screen Not Detected (Not Detect) Ur Phencyclidine Scrn Not Detected (Not Detect) Ur Amphetamines Screen Not Detected (Not Detect) U Benzodiazepines Scrn Not Detected (Not Detect) Urine Cocaine Screen Not Detected (Not Detect) U Marijuana (THC) Screen Not Detected (Not Detect) Ethyl Alcohol < 10 mg/dL Independent Interpretation I performed an independent interpretation of an: EKG Interpretation: I independently interpreted this EKG and am in agreement with the below findings: Vent. Rate: 83 BPM Atrial Rate: 83 BPM P-R Int: 142 ms QRS Dur: 74 ms QT Int: 350 ms P-R-T Axes: 44 3 1 degrees QTcB Int: 411 ms Normal sinus rhythm Normal ECG When compared with ECG of 17-Mar-2024 14:40, No significant change was found DD/ [id number] Discharge Plan Discharge Clinical Impression: Suicidal ideation, Acute anxiety Patient Disposition: Still a Patient Prescriptions: No Action quetiapine 200 mg Tablet 200 mg PO BEDTIME Rx Instructions: Take 2 hours prior to bedtime divalproex [Depakote] 500 mg Tablet,Delayed Release (Dr/Ec) 500 mg PO BID Rx Instructions: take 1 tablet in the morning and 1 tablet at dinner propranolol 40 mg Tablet 40 mg PO BID PRN (Reason: Anxiety) nicotine (polacrilex) 4 mg gum 4 mg PO Q2H PRN (Reason: Nicotine Cravings) nicotine 21 mg/24 hr patch 24 hour 1 patch topical QAM pregabalin [Lyrica] 150 mg Capsule 150 mg PO BEDTIME Interventions: [place]-Suicide Risk Severity Scale Last Done: 11/26/24 12:04 Print Language: [place]
[2024-11-26 11:08] LABS: Appearance Urine Clear; Color Urine Yellow; Glucose Urine UA Negative (Negative); Leukocyte Esterase Urine Negative (Negative); Nitrite Urine Negative (Negative); PH 6.5 (5.0-9.0); Urine Blood Negative (Negative); Urine Ketones Trace mg/dL (Negative); Urine Protein Negative (Neg-Trace)
[2024-11-26 11:09] LABS: Basophils Percent Auto 0.3 % (0-2); Eosinophils Absolute Auto 0.1 X10*3/uL (0.0-0.4); Eosinophils Percent Auto 1.1 % (0-4); Hematocrit 43.1 % (42.0-52.0); Hemoglobin 15.8 g/dl (14.0-18.0); Imm Gran Abs Auto 0.07 X10*3/uL (0.00-0.03); Imm Gran Pct Auto 0.8 % (0.0-0.4); Lymphocytes Absolute Auto 2.9 X10*3/uL (1.2-4.9); Lymphocytes Percent Auto 32.3 % (20-40); Mean Corpuscular HGB Conc 36.7 g/dl (31.0-36.0); Mean Corpuscular Hemoglobin 32.2 pg (27.0-33.0); Mean Corpuscular Volume 87.8 fL (80.0-98.0); Mean Platelet Volume 9.6 fL (9.4-12.4); Monocytes Absolute Auto 0.6 X10*3/uL (0.1-1.2); Neutrophils Absolute Auto 5.3 x10*3/uL (2.0-8.3); Neutrophils Percent Auto 58.5 % (45-73); Platelet Count 200 X10*3/uL (160-400); Red Blood Count 4.91 X10*6/uL (4.60-5.80)
[2024-11-26 11:18] LABS: Amphetamine Screen Urine Not Detected (Not Detect); Barbiturates, Urine Not Detected (Not Detect); Benzodiazepines Screen Urine Not Detected (Not Detect); Buprenorphine Scr Not Detected (Not Detect); Cannabinoid Screen Urine Not Detected (Not Detect); Cocaine Screen Urine Not Detected (Not Detect); Fentanyl, urine Not Detected (Not Detect); Methadone Screen, Urine Not Detected (Not Detect); Opiate Screen Urine Not Detected (Not Detect); Oxycodone Screen Urine Not Detected (Not Detect); Phencyclidine Screen Urine Not Detected (Not Detect)
--- OUTSIDE RECORDS SUMMARY | 2024-11-26 11:18 | XMS_ITS | Clinical Summary ---
Author Organization [employer] Address [address] [place] [address] Care Team Providers Care Welding Teacher Name Role Phone Jose J Schaefer MD Primary Care Prov ider Allergies No known active allergies Medications * This document contains information received from the source organization and may not represent a complete record from that organization. hydrOXYzine HCl (Atarax) 25 MG tablet Take 1 tablet (25 mg) by mouth every 6 (six) hours if needed for anxiety. 120 tablet 3 06/14/20 24 Active escitalopram (Lexapro) 10 MG tablet Take 1 tablet (10 mg) by mouth Once per day. 30 tablet 2 07/05/20 24 Active nicotine (Nicoderm CQ) 21 MG/24HR patchIndicatio ns:Tobacco use disorder Place 1 patch on the skin 1 (one) time each day at the same time. 30 patch 3 08/15/20 24 Active clonazePAM (KlonoPIN) 1 MG tablet Take 1 tablet (1 mg) by mouth 2 times daily. 60 tablet 08/15/20 24 Active QUEtiapine (SEROquel) 25 MG tabletIndicati ons:Bipolar 1 disorder (CMS/HCC) Take 2 tablets (50 mg) by mouth at bedtime. 60 tablet 08/25/20 24 Active nicotine polacrilex (Nicorette) 4 MG gumIndications :Tobacco use disorder CHEW 1 PIECE OF GUM EVERY 2 HOURS IF NEEDED FOR SMOKING CESSATION 200 each 2 10/25/19 25 Active DULoxetine (Cymbalta) [address] capsule TAKE ONE CAPSULE TWICE DAILY, DO NOT BREAK, CRUSH, DISSOLVE OR CHEW 60 capsule 1 11/22/19 25 Active DULoxetine (Cymbalta) [address] capsule Take 1 capsule (30 mg) by mouth 2 times daily. Do not crush or chew. 60 capsule 1 08/17/20 24 025 Discontinued Active Problems Problem Noted Date Diagnosed Date Adjustment disorder with anxious mood 06/14/2024 Assessment & Plan (06/14/2024 10:13 AM EDT): No suicidal/homicidal ideas, follow up with /psych, will decrease clonazepam to 0.5mg bid, and will start on hydroxyzine, plan is to continue tapering clonazepam. Adjustment disorder with mixed anxiety and depre ssed mood 04/29/2024 Assessment & Plan (08/19/2024 2:50 PM EST): Patient not interested in receiving /psych therapy locally, he refers has a [place] psychiatrist, refers he will get [place] delivered from [place]. I made clear with diplomatic interpreter/translator as help that the best option would be to be followed locally for his mental conditions, also I made clear that if he will receive services from a psychiatrist in [place] and he needs the prescription from me I wont be making it, he understood and agree. He also was made clear that this was going to be the last month I will be refilling clonazepam, he also understood. He should call back if interested in local services Assessment & Plan (07/05/2024 10:48 AM EDT): Patient symptoms worsen after decreasing dose of clonazepam, will increase back to 1mg bid, told to follow up with psych, no suicidal/homicidal, will prescribe lexapro, follow up in 1 month Encounters * This document contains information received from the source organization and may not represent a complete record from that organization. Date Type Department Care Team Description 11/20/2024 Refill [facility] [address] [place] [address] Jose J Schaefer MD 10/25/2024 1:00 PM EST Telemedicine [facility] [address] [place] [address] Jose J Schaefer MD Adjustment disorder with mixed anxiety and depressed mood (Primary Dx); Tobacco use disorder; Chronic right shoulder pain 10/25/2024 Travel from Last 3 Months Immunizations Name Administration Dates Next Due BCG 1985 DTaP 05/05/1986, 5,1985,04/19 Hep B, Adolescent or Pediatric 05/09/2006,2005 Hep B, adult 06/02/2024, 4,11/14/2023,04/08 IPV 04/22/1986,1985,1985 Influenza, seasonal, injecta ble, preservative free 06/02/2024 MMR 11/14/2023,09/03/1986 Meningococcal MCV4O 03/24/1990,01/28/1990 Pfizer Covid-19 Vaccine 12+ 06/02/2024,0 09/30/2021,05/25/2021,03/16 TD (adult), 2 Lf tetanus tox oid, preservative free, adsorbed 11/18/2023,02/07/2008 Varicella 06/02/2024 Yellow Fever 11/14/2023 Family History Medical History Relation Name Comments Alzheimer's disease Mother Heart disease Mother Relation Name Status Comments Mother Social History Tobacco Use Types Packs/Day Years Used Date Smoking Tobacco: Every Day Cigarettes Passive Smoke Exposure: Past Smokeless Tobacco: Never Tobacco Cessation:Ready to Q uit: Not Asked; Counseling Given: Not Answered Housing Stability Answer Date Recorded What is your housing situation today? I have sharlagil erazo 04/29/[address] you li ve. Do you have problems with any of the following? None of the above 04/29/2024 Food Insecurity Answer Date Recorded Within the past 12 months, y ou worried that your food would run out before you got money to buy more: Never True 04/29/2024 Within the past 12 months,th e food you bought just didn't last and you didn't have enough money to get more: Never True Transportation Answer Date Recorded In the past 12 months, has l ack of transportation kept you from medical appts, meetings, work or from getting things needed for daily living? No 04/29/2024 Utilities Answer Date Recorded In the past 12 months, has t he electric, gas, oil or water company threatened to shut off services in your home? No 04/29/2024 Depression Answer Date Recorded Patient Health Questionnaire-2 Score 2 04/13/2024 Internet Access Answer Date Recorded Internet Access Q1 Yes 05/09/2024 Internet Access Q2 Not on file 05/09/2024 Sex and Gender Information Value Date Recorded Sex Assigned at Male 04/13/2024 10:23 AM EDT Legal Sex Male 3:30 PM EDT Gender Identity Male 04/13/2024 10:23 AM EDT Sexual Orientation Straight 04/13/2024 10 :23 AM EDT Last Filed Vital Signs Vital Sign Reading Time Taken Comments Blood Pressure 138/90 08/15/2024 11:23 AM EST Pulse 68 08/15/2024 11:23 AM EST Temperature 37.1 ??C (98.7 ??F) 08/15/2024 11:[address] Respiratory Rate 16 08/15/2024 11:23 AM EST Oxygen Saturation 99% 06/06/2024 2:50 PM EDT Inhaled Oxygen Concentration - - Weight 77.1 kg (170 lb) 08/15/2024 11:23 AM EST Height 175.3 cm (5' 9 ) 08/15/2024 11:23 AM EST Body Mass Index 25.1 08/15/2024 11:23 AM EST Plan of Treatment Upcoming Encounters Date Type Department Care Team (Late st Contact Info) Description 12/05/2024 1:45 PM EDT Office Visit [facility] [address] [place] [address] Josie Rios, OD [address] [place] [address] Health Maintenance Due Date Last Done Comments IPV Vaccines (3 of 3 - 4-dose series) 1989 04/22/1986, 1985, 1985 Alcohol/Substance Use Screening 1997 Family Planning (PISQ) 02/01/2000 Pneumococcal Vaccine: Pediatrics (0 to 5 Years) and At-Risk Patients (6 to 49) Years) (1 of 2 - PCV) 02/01/2004 DTaP/Tdap/Td Vaccines (5 - Tdap) 11/19/2023 11/18/2023, 02/07/2008, 05/05/1986, Additional history exists Depression Screening 04/13/2025 04/13/2024, 04/13/20 SDOH Screening 04/29/2025 04/29/2024 Tobacco Screening 08/25/2025 08/25/2024 Lipid Panel 04/29/2029 04/29/2024 Zoster Vaccines (1 of 2) 2035 RSV Patients and Patients Aged 60 years or older (1 - 1-dose 75+ series) 02/01/2060 Meningococcal Vaccine Aged Out 03/24/1990, 99 No longer eligible based on patient's age to complete this topic HIV Screening Completed 04/29/2024 Hepatitis C Screening Completed 04/29/2024 COVID-19 Vaccine Completed 06/02/2024, , 05/25/2021, Additional history exists Hepatitis B Vaccines Completed 06/02/2024, 12/17/2023, 11/14/2023, Additional history exists Influenza Vaccine Completed 06/02/2024 HIB Vaccines Aged Out No longer eligi ble based on patient's age to complete this topic HPV Vaccines Aged Out No longer eligi ble based on patient's age to complete this topic Hepatitis A Vaccines Aged Out No long er eligible based on patient's age to complete this topic RSV under 20 months Aged Out No longe r eligible based on patient's age to complete this topic Rotavirus Vaccines Aged Out No longer eligible based on patient's age to complete this topic Procedures Procedure Name Priority Date/Time Associated Diagnosis Comments HEPATITIS PANEL, GENERAL Routine 04/29/2024 12:27 PM EDT Healthcare maintenance HIV 1/2 ANTIGEN/ANTIBODY, FOURTH GENERATION W/RFL Routine 04/29/2024 12:27 PM EDT Healthcare maintenance LIPID PANEL, STANDARD Routine 04/29/2024 12:27 PM EDT Healthcare maintenance from Last 3 Months or Most Recently Relevant to Health Maintenance Results * Hepatitis A,B,C Profile (04/29/2024 12:27 PM EDT) Hepatitis A IgM Nonreactive Nonreactive [facility] Comment:IgM antibodies to PHAM V not detected; does not exclude earlyacute or recovered HAV infection. ~Hepatitis B Surface Antibody REACTIVE Nonreactive [facility] Comment:REACTIVE: > 11.99 mI U/mL Hepatitis B Core Antibody Nonreactive Nonreactive [facility] Hepatitis C Antibody Nonreactive Nonreactive [facility] Comment:Antibodies to HCV no t detected; does not exclude early acuteHCV infection. Hepatitis B Surface Ag Negative Negative [facility] Blood Venous blood specimen / Unknown 04/29/2024 12:27 PM EDT 04/29/2024 1:15 PM EDT [facility] LAB BLOOD ORDERABLES Final Re sult Performing Organization Address [facility] Co de Phone Number [facility] [address] [place] [phone] * HIV-1/2 Antigen and Antibodies, Fourth Generation, with Reflexes (04/29/2024 12:27 PM EDT) HIV AB/AG Nonreactive Nonreactive [facility] Comment:HIV-1 p24 Ag and/or HIV-1/HIV-2 Ab not detected.A test result that is nonreactive does not exclude thepossibility of exposure to or infection with HIV-1 and/orHIV-2. Nonreactive results in this assay for individualswith prior exposure to HIV-1 and/or HIV-2 may be due toantigen and antibody levels that are below the limit ofdetection of this assay.The mobifriendsnievocatal HIV Ag/Ab Combo assay result andsupplemental assay results should be interpreted inconjunction with the patient's clinical presentation,history and other laboratory results. If the results areinconsistent with clinical evidence, additional testing issuggested to confirm the result. Blood Venous blood specimen / Unknown 04/29/2024 12:27 PM EDT 04/29/2024 1:15 PM EDT [facility] LAB BLOOD ORDERABLES Final Re sult Performing Organization Address [facility]/ZIP Co de Phone Number [facility] [address] [place] [address] [phone] * (ABNORMAL) Lipid Panel, Standard (04/29/2024 12:27 PM EDT) Triglycerides 95 <150 mg/dL [facility] Comment:Desirable Triglyceri de: less than 150 mg/dLBorderline High Triglyceride 150-199 mg/dLHigh Triglyceride: 200-499 mg/dLVery High Triglyceride: greater than or equal to 5OO mg/dL Cholesterol 190 <200 mg/dL [facility] Comment:Desirable Cholestero l: less than 200 mg/dLBorderline High Cholesterol: 200-239 mg/dLHigh Cholesterol: greater than 239 mg/dL LDL Cholesterol Calculated 128(H) <100 mg/dL [facility] Comment:Desirable LDL: less than 100 mg/dLNear Optimal/Above Optimal LDL: 110- 129 mg/dLBorderline High LDL: 130-159 mg/dLHigh LDL: 160-189 mg/dLVery High LDL: greater than or equal to 190 mg/dL HDL Cholesterol 43 >40 mg/dL [facility] Comment:Desirable HDL: great er than 40 mg/dL Note: This HDL assay may give artificially low results in patients with liver disease. Blood Venous blood specimen / Unknown 04/29/2024 12:27 PM EDT 04/29/2024 1:15 PM EDT [facility] LAB BLOOD ORDERABLES Final Re sult [facility] [address] [place] [address] [phone] from Last 3 Months or Most Recently Relevant to Health Maintenance Insurance Z2 HSN FULL Care Teams Welding Teacher Relationship Specialty Start Date End Date Jose J Schaefer MD [address] [place] [phone] PCP - General Internal Medicine 06/08/24
--- OUTSIDE RECORDS SUMMARY | 2024-11-26 11:18 | XMS_ITS | Clinical Summary ---
Author Organization [facility] Address [address] [place] [address] Care Team Providers Care Yarn Polishing Machine Operator Name Role Phone [facility] Primary Care Provider [phone] Allergies No known active allergies Medications DULoxetine DR (CYMBALTA) 20 mg capsule Take 20 mg by mouth once a day. 05/23/2024 Active nicotine (NICODERM CQ) 21 mg/[address] 1 patch on the skin every 24 hours. 08/15/2024 Active nicotine polacrilex (NICORETTE) [address] 4 mg between cheek and gums as needed. 08/15/2024 Active escitalopram (LEXAPRO) 10 mg tablet Take 10 mg by mouth daily. 07/05/2024 Active Active Problems No known active problems Social History Tobacco Use Types Packs/Day Years Used Date Smoking Tobacco: Never Assessed Comments Unknown Sex and Gender Information Value Date Recorded Sex Assigned at Unknown 05/27/2024 11:30 AM EDT Legal Sex Male 11:19 AM EDT Gender Identity Not on file Sexual Orientation Not on file Last Filed Vital Signs Vital Sign Reading Time Taken Comments Blood Pressure 106/75 08/24/2024 2:30 PM EST Pulse 92 08/24/2024 2:30 PM EST Temperature - - Respiratory Rate - - Oxygen Saturation - - Inhaled Oxygen Concentration - - Weight - - Height - - Body Mass Index - - Plan of Treatment Upcoming Encounters Date Type Department Care Team (Late st Contact Info) Description 03/02/2025 4:00 PM EDT Office Visit [facility] [address] [place] [address] [phone] [employer] T[employer] Worker: Cierra Rasmussen PA [address] [place] [address] Health Maintenance Due Date Last Done Comments Hepatitis C Screening 1985 DTaP,Tdap,and Td Vaccines (5 - Tdap) 11/19/2023 11/18/2023, 02/07/2008, 05/05/1986, Additional history exists Varicella Vaccines (2 of 2 - 13+ 2-dose series) 06/30/2024 06/02/2024 Alcohol/Substance Use Screening 09/07/2024 Depression Screening and Follow-Up 09/07/2024 Social Drivers of Health Annual Screening 09/07/2024 RSV Vaccine (60+ years old and patients) (1 - 1-dose 75+ series) 02/01/2060 HIV Screening Completed 04/29/2024 COVID-19 Vaccine Completed 06/02/2024, , 09/30/2021, Additional history exists Hepatitis B Vaccines Completed 06/02/2024, 12/17/2023, 11/14/2023, Additional history exists Influenza Vaccine Completed 06/02/2024 Pneumococcal Vaccine: Pediatric (0-5 Years) and At-Risk Patients (6-50 Years) Aged Out No longer eligible based on patient's age to complete this topic Insurance [facility] HSNO/FREE CARE Care Teams Yarn Polishing Machine Operator Relationship Specialty Start Date End Date [place] [address] [place] [phone] PCP - General 05/27/24
--- OUTSIDE RECORDS SUMMARY | 2024-11-26 11:18 | XMS_ITS | Referral Summary ---
Author Organization [facility] Address [address] [place] [address] Care Team Providers Care Ply Splicer Name Role Phone [facility] Primary Care Provider [phone] Allergies No known active allergies Medications DULoxetine [...] Description 03/02/2025 4:00 PM EDT Office Visit [facility] [address] [place] [address] [phone] Cnc Lathe Machine Operator: Cierra Rasmussen PA [address] [place] [address] Insurance [place] HSNO/FREE CARE Care Teams Ply Splicer Relationship Specialty Start Date End Date [facility] [address] [place] [address] PCP - General 05/27/24
--- OUTSIDE RECORDS SUMMARY | 2024-11-26 11:19 | XMS_ITS | Encounter Summary ---
Author Organization [employer] Address [address] [place] [address] Care Team Providers Care Assistant Administrator Name Role Phone Jose J Schaefer MD Primary Care Prov ider Reason for Visit * Reason Comments Med Refill Encounter Details Date Type Department Care Team ([facility] Contact Info) Description 11/20/2024 Refill [facility] [address] [place] [address] Jose J Schaefer MD [address] [place] [address] Social History Tobacco Use Types Packs/Day Years Used Date Smoking Tobacco: Every Day Cigarettes Passive Smoke Exposure: Past Smokeless Tobacco: Never Housing Stability Answer Date Recorded What is your housing situation today? I have sharla erazo 04/29/[address] you [...] Orientation Straight 04/13/2024 10 :23 AM EDT documented as of this encounter Plan of Treatment Upcoming Encounters Date Type Department Care Team (Late st Contact Info) Description 12/05/2024 1:45 PM EDT Office Visit [facility] [address] [place], [place] [phone] TarkaJosie, OD [address] [place] [address] documented as of this encounter Visit Diagnoses Not on filedocumented in this encounter Care Teams Assistant Administrator Relationship Specialty Start Date End Date Jose J Schaefer MD [address] [place] [phone] PCP - General Internal Medicine 06/08/24 documented as of this encounter
[2024-11-26 11:24] LABS: Acetaminophen LAB < 3 mcg/mL (<30); Salicylate < 5.0 mg/dL (15-30)
[2024-11-26 11:25] LABS: Alanine Aminotransferase 57 U/L (0-40); Albumin Level 4.4 g/dL (3.5-5.0); Alkaline Phosphatase 71 U/L (39-117); Anion Gap 12 (12-20); Aspartate Amino Transferase 186 U/L (5-37); Bilirubin Total 0.7 mg/dL (0.0-1.0); Blood Urea Nitrogen 11 mg/dL (9-16); Calcium 9.4 mg/dL (8.4-10.2); Carbon Dioxide 27 mmol/L (22-29); Chloride 104 mmol/L (96-108); Estimated Glomerular Filt Rate > 60; Ethanol < 10 mg/dL; Glucose Random 95 mg/dL (60-115); Potassium 4.3 mmol/L (3.3-5.1); Sodium 139 mmol/L (135-145); Total Protein 7.8 g/dL (6.5-8.0)
[2024-11-26 12:27] VITALS: BP 117/69; PULSE 76; RESP 16; O2SAT 97
[2024-11-26] MEDS: Nicotine Polacrilex 2 MG GUM BUCCAL ×2 (16:42→19:40)
--- NOTE | 2024-11-26 16:55 | PC.NURSE ---
Patient remains calm and cooperative, offering no complaints to this RN. Provided with nicotine replacement therapy (gum). Now resting on bed in 5 watching TV. Patient aware of plan of care for follow up with CARE team tomorrow am
[2024-11-26] MEDS: Nicotine 21 MG PATCH.TD24 TRANSDERMA (19:39)
[2024-11-26] MEDS: Divalproex Sodium 500 MG TABLET.DR PO (20:16)
[2024-11-26] MEDS: QUEtiapine Fumarate 200 MG TABLET PO (20:16)
[2024-11-26] MEDS: Pregabalin 150 MG CAPSULE PO (20:16)
[2024-11-26 20:26] VITALS: BP 112/71; PULSE 91; RESP 20; TEMP 36.6; O2SAT 99
--- NOTE | 2024-11-27 00:26 | PC.NURSE ---
This mortgage loan underwriter assumed care of this Pt at 2300. Pt appears to be sleeping, equal, non-labored respirations. Plan of care ongoing.
--- NOTE | 2024-11-27 06:23 | PC.NURSE ---
pt awake, ambulated to BR with independent gait.
[2024-11-27 06:33] VITALS: BP 112/76; PULSE 88; RESP 16; TEMP 36.5; O2SAT 99
--- NOTE | 2024-11-27 07:11 | PC.NURSE ---
Assumed care of patient at 0645, patient appears to be in no apparent distress this am, sleeping, respirations even and unlabored. Continue plan of care for psych consult today
[2024-11-27] MEDS: Divalproex Sodium 500 MG TABLET.DR PO ×2 (08:42→21:57)
[2024-11-27] MEDS: Nicotine 21 MG PATCH.TD24 TRANSDERMA (08:43)
--- NOTE | 2024-11-27 13:54 | PHA.MEDREC ---
Pharmacy Consult ? Medication Reconciliation Pharmacy has completed the medication reconciliation. Reviewed med rec done by nursing (Reina). Pt from [place] and had screenshot of med[place]. Pt no taking cymbalta, lexapro, hydroxyzine. Pt reports Seroquel 200 mg bedtime.
--- NOTE | 2024-11-27 19:00 | P.CNPS_ITS ---
History of Present Illness Date of Service: 11/27/24 Chief Complaint: Anxiety Reason for Consult: assess for safety HPI Narrative: Pt seenn using electronic Citizen [place] jewel sorter pt is a 39 yo [place] speaking male from [facility] with hx of depression/anxiety who presents for panic attack. Pt told ED provider that the occasionally has SI. Patient however says he has no plans or intentions at all, it's just occasional thought had because he was in such a state of panic. This is now resolved. He says he feels safe and is not at risk at all of hurting himself. He says his [facility] doctor says he does not have depression, but has bipolar disorder; pt says he needs to communicate this to his [place] [psych] doctor with whom he has an appointment scheduled for 11/29/24. He asks literary writer for refills of current medications to get him to his appointment. Pt offered to go to inpt unit for full evaluation however, he says he needs a shower, wants to take of errands at home and rather work this out with outpt provider. Medical Evaluation Reviewed: Yes [facility] Medical History (Updated 11/27/24 @ 19:15 by Shmuel Spears MD) Panic attack Bipolar disorder, unspecified Diagnostics Vital Signs (24Hr): Vital Signs - 24 hr 11/26/24 20:26 11/27/24 06:33 Temperature 98 F 97.7 F Pulse Rate 91 88 Respiratory Rate 20 16 Blood Pressure 112/71 112/76 Pulse Oximetry 99 99 Oxygen Delivery Method Room Air Room Air BMI result Body Mass Index 26.6 Labs 11/26/24 11:00 11/26/24 11:00 Labs: Laboratory Results - last 48 hr 11/26/24 11:00 WBC 9.0 RBC 4.91 Hgb 15.8 Hct 43.1 MCV 87.8 MCH 32.2 MCHC 36.7 H RDW 12.0 Plt Count 200 MPV 9.6 Immature Gran % (Auto) 0.8 H Neut % (Auto) 58.5 Lymph % (Auto) 32.3 [place] % (Auto) 7.0 Eos % (Auto) 1.1 Baso % (Auto) 0.3 Lymph # (Auto) 2.9 [place] # (Auto) 0.6 Eos # (Auto) 0.1 Baso # (Auto) 0.0 Abs Immat Gran (auto) 0.07 H Absolute Neuts (auto) 5.3 Absolute Nucleated RBC 0.000 Nucleated RBC % (auto) 0.0 Sodium 139 Potassium 4.3 Chloride 104 Carbon Dioxide 27 Anion Gap 12 BUN 11 Creatinine 1.09 Estim Creat Clear Calc 88.0 Estimated GFR > 60 Random Glucose 95 Calcium 9.4 Total Bilirubin 0.7 AST 186 H ALT 57 H Alkaline Phosphatase 71 Total Protein 7.8 Albumin 4.4 Urine Color Yellow Urine Appearance Clear Urine pH 6.5 Ur Specific [place] 1.010 Urine Protein Negative Urine Glucose (UA) Negative Urine Ketones Trace Urine Blood Negative Urine Nitrite Negative Ur Leukocyte Esterase Negative Salicylates < 5.0 L Urine Opiates Screen Not Detected Ur Buprenorphine Scrn Not Detected Ur Oxycodone Screen Not Detected Urine Methadone Screen Not Detected Urine Fentanyl Screen Not Detected Acetaminophen < 3 Ur Barbiturates Screen Not Detected Ur Phencyclidine Scrn Not Detected Ur Amphetamines Screen Not Detected U Benzodiazepines Scrn Not Detected Urine Cocaine Screen Not Detected U Marijuana (THC) Screen Not Detected Ethyl Alcohol < 10 Mental Status Exam Mental Status Exam Narrative: Pt is alert and oriented; behavior is cooperative, friendly and calm; patient is not in distress; dressed in hospital attire, well groomed and with adequate hygiene; mood is described as ok and affect congruent; eye contact appropriate; Speech is normal rate, volume and prosody and not pressured; no psychomotor agitation/retardation present; thought process is organized and goal directed; Thought content is on tx; otherwise pertinent to relevant topics and without any delusional content, paranoid ideations or grandiosity; denies any SI/HI. Denies AVH and there is no evidence of perceptual disturbance. Patients insight and judgment appear intact. Medications Medications Current Medications Divalproex Sodium (Divalproex Sodium 500 Mg Tablet.Dr) 500 mg PO BID [facility] Last Admin: 11/27/24 08:42 Dose: 500 mg Nicotine (Nicotine 21 Mg Patch.Td24) 21 mg TRANSDERMA DAILY [facility] Last Admin: 11/27/24 08:43 Dose: 21 mg Nicotine Polacrilex (Nicotine Polacrilex 2 Mg Gum) 2 mg BUCCAL Q2H PRN PRN Reason: Nicotine Cravings Last Admin: 11/26/24 19:40 Dose: 2 mg Nicotine Polacrilex (Nicotine Polacrilex 2 Mg Gum) 4 mg BUCCAL Q2H PRN PRN Reason: Nicotine Cravings Pregabalin (Pregabalin 150 Mg Capsule) 150 mg PO BEDTIME DANIKA Last Admin: 11/26/24 20:16 Dose: 150 mg Propranolol HCl (Propranolol Hcl 40 Mg Tablet) 40 mg PO BID PRN; Protocol PRN Reason: Anxiety Quetiapine Fumarate (Quetiapine Fumarate 200 Mg Tablet) 200 mg PO BEDTIME DANIKA Last Admin: 11/26/24 20:16 Dose: 200 mg Allergies Allergies Allergy/AdvReac Type Severity Reaction Status Date / Time shellfish derived [shellfish] Allergy Unknown Verified 11/26/24 10:47 Assessment & Plan Assessment & Plan (1) Bipolar disorder, unspecified: Status: Acute Code(s): F31.9 - Bipolar disorder, unspecified (2) Panic attack: Status: Acute Code(s): F41.0 - Panic disorder [episodic paroxysmal anxiety] Plan pt is a 39 yo Citizen [place] speaking male from [facility] with hx of depression/anxiety who presents for panic attack. Pt told ED provider that the occasionally has SI. Patient however says he has no plans or intentions at all, it's just occasional thought had because he was in such a state of panic. This is now resolved. He says he feels safe and is not at risk at all of hurting himself. He says his [facility] doctor says he does not have depression, but has bipolar disorder; pt says he needs to communicate this to his [place] [psych] doctor with whom he has an appointment scheduled for 11/29/24. He asks literary writer for refills of current medications to get him to his appointment. Pt offered to go to inpt unit for full evaluation however, he says he needs a shower, wants to take of errands at home and rather work this out with outpt provider. Impression: pt is stable; panic attack has resolved. Patient denies any intent or plans for SI and says his comment was only that SI occasionally crosses his mind but he would not do it or safe. Pt already has outpt provider with appointment in 2 days. He does not want inpatient admission. Pt demonstrates good judgment self- presenting when needs help. He is future oriented. Pt is not in imminent risk for harm to self or others and appropriate for treatment in the community. Total time managing care of this patient today ____ minutes. Patient educated on: diagnosis and medication risk/benefits Informed Consent: understands
--- NOTE | 2024-11-27 20:51 | MHC.CARE ---
T/w called pts. friend, Harish Shook Do, and he will be picking up pt. in the morning as pt. is cleared by the CARE team. Pt. and friend both speak faroese only, translator and interpreter will be needed for discharge in AM
--- NOTE | 2024-11-27 20:59 | PC.NURSE ---
Report received from tank charger, taken over care at this time.
[2024-11-27 21:19] VITALS: BP 94/70; PULSE 80; RESP 16; TEMP 37.3; O2SAT 96
[2024-11-27] MEDS: QUEtiapine Fumarate 200 MG TABLET PO (21:57)
[2024-11-27] MEDS: Pregabalin 150 MG CAPSULE PO (21:57)
[2024-11-27 22:00] VITALS: BP 94/70; PULSE 80; RESP 16; TEMP 37.3; O2SAT 96
--- NOTE | 2024-11-27 23:17 | PC.NURSE ---
Report given to CARLOS Maddox.
[2024-11-28 07:40] VITALS: BP 104/72; PULSE 97; RESP 18; TEMP 36.3; O2SAT 92
[2024-11-28] MEDS: Divalproex Sodium 500 MG TABLET.DR PO (07:58)
[2024-11-28] MEDS: Nicotine 21 MG PATCH.TD24 TRANSDERMA (07:58)
[2024-11-28 08:00] VITALS: BP 104/72; PULSE 97; RESP 18; TEMP 36.3; O2SAT 92
== END 2024-11-28 08:33 | disposition home or self-care (01) ==
PROVIDERS: Emergency Provider Emergency Medicine
DX: F41.9 Anxiety disorder, unspecified (principal); R45.851 Suicidal ideations; Z91.148 Patient's other noncompliance with medication regimen for other reason; F41.0 Panic disorder [episodic paroxysmal anxiety]; F31.9 Bipolar disorder, unspecified
CPT/HCPCS: 36415; 80053; 80143; 80179; 80307; 81003; 85025; 93005; 99285; S9485

== ENCOUNTER → 2024-11-26 10:53 | Outpatient (BNV) | payer SELFPAY | PROVIDERS: Emergency Provider Emergency Medicine; Visit Provider Internal Medicine Cardiovascular Disease | DX: F41.9 Anxiety disorder, unspecified (principal); R07.9 Chest pain, unspecified | CPT/HCPCS: 93010 ==

== ENCOUNTER → 2024-11-26 11:16 | Outpatient (BNV) | payer MEDICAID, SELFPAY | PROVIDERS: Emergency Provider Emergency Medicine; Visit Provider Psychiatry & Neurology Psychiatry | DX: F31.9 Bipolar disorder, unspecified (principal); F41.0 Panic disorder [episodic paroxysmal anxiety] | CPT/HCPCS: 99283 ==

== ENCOUNTER 2024-12-28 07:55 | Outpatient (REF) | payer SELFPAY ==
--- OUTSIDE RECORDS SUMMARY | 2024-12-28 07:59 | XMS_ITS | Referral Summary ---
Author Organization [facility] Address [address] [place] [address] Care Team Providers Care Receiver Setter Name Role Phone [facility] Primary Care Provider [phone] Allergies No known active allergies Medications DULoxetine [...] Description 03/02/2025 4:00 PM EDT Office Visit [facility] [address] [place] [address] [phone] Etl Tester: Cierra Rasmussen PA [address] [place] [address] Insurance [place] HSNO/FREE CARE Care Teams Receiver Setter Relationship Specialty Start Date End Date [facility] [address] [place] [address] PCP - General 05/27/24
--- OUTSIDE RECORDS SUMMARY | 2024-12-28 07:59 | XMS_ITS | Encounter Summary ---
Author Organization [employer] Address [address] [place] [address] Care Team Providers Care Lipcoat Sprayer Name Role Phone Jose J Schaefer MD Primary Care Prov ider Encounter Details Date Type Department Care Team ([facility] st Contact Info) Description 12/27/2024 Orders Only [facility] [address] [place], [place] [phone] Jose J Schaefer MD [address] [place], [place] [phone] On valproic acid therapy (Primary Dx) Social History Tobacco Use Types Packs/Day Years [...] Care Team (Late st Contact Info) Description 01/02/2025 8:00 AM EDT Office Visit [facility] [address] [place] [address] Ge Jenniferhomero [address] [place] [address] Scheduled Orders Name Type Priority Associated Diagnoses Orde r Schedule Valproic Acid Total Lab Routine On valproic acid therapy Expected: 12/27/2024 (Approximate), Expires: 12/27/2025 documented as of this encounter Visit Diagnoses Diagnosis On valproic acid therapy- Primary documented in this encounter Care Teams Lipcoat Sprayer Relationship Specialty Start Date End Date Jose J Schaefer MD [address] [place] [address] PCP - General Internal Medicine 06/08/24 documented as of this encounter
--- OUTSIDE RECORDS SUMMARY | 2024-12-28 07:59 | XMS_ITS | Clinical Summary ---
Author Organization [employer] [employer] [facility] Address [address] [place] [address] Care Team Providers Care Box Office Agent Name Role Phone Jose J Schaefer MD [...] times daily. 60 tablet 08/15/20 24 Active nicotine polacrilex (Nicorette) 4 MG gumIndications :Tobacco use disorder CHEW 1 PIECE OF GUM EVERY 2 HOURS IF NEEDED FOR SMOKING CESSATION 200 each 2 10/25/19 25 Active DULoxetine (Cymbalta) [address] capsule TAKE ONE CAPSULE TWICE DAILY, DO NOT BREAK, CRUSH, DISSOLVE OR CHEW 60 capsule 1 11/22/19 25 Active gabapentin (Neurontin) 100 MG capsuleIndicat ions:Anxiety Take 1 capsule (100 mg) by mouth 2 times daily. 60 capsule 1 11/30/19 25 01/28/ 025 Active QUEtiapine (SEROquel) 100 MG tabletIndicati ons:Bipolar 1 disorder (CMS/HCC) Take 2 tablets (200 mg) by mouth at bedtime. 60 tablet 1 11/30/19 25 025 Active divalproex (Depakote ER) 500 MG 24 hr tabletIndicati ons:Bipolar 1 disorder (CMS/HCC) Take 1 tablet by mouth in the morning and 2 tablets at bedtime. Do not crush, chew, or split. 90 tablet 1 11/30/19 25 Active propranolol (Inderal) 10 MG tabletIndicati ons:Anxiety Take 1 tablet (10 mg) by mouth if needed in the morning and at bedtime (Anxiety). 60 tablet 1 11/30/19 25 025 Active QUEtiapine (SEROquel) 25 MG tabletIndicati ons:Bipolar 1 disorder (CMS/HCC) Take 2 tablets (50 mg) by mouth at bedtime. 60 tablet 08/25/20 24 025 Discontinued Active Problems Problem Noted Date Diagnosed Date Bipolar 1 disorder 11/29/2024 Anxiety 11/29/2024 Adjustment disorder with anxious mood 06/14/2024 Assessment & Plan (06/14/2024 10:13 AM EDT): No suicidal/homicidal ideas, follow up with BH/psych, will decrease clonazepam to 0.5mg bid, and will start on hydroxyzine, plan is to continue tapering clonazepam. Adjustment disorder with mixed anxiety and depre ssed mood 04/29/2024 Assessment & Plan (08/19/2024 2:50 PM EST): Patient not interested in receiving BH/psych therapy locally, he refers has a [facility], refers he will get prescription delivered from [facility]. I made clear with interpreter and translator as help that the best option would be to be followed locally for his mental conditions, also I made clear that if he will receive services from a psychiatrist in [place] and he needs the prescription from me [...] organization. Date Type Department Care Team Description 12/27/2024 11:00 AM EDT Office Visit [facility] [address] [place] [address] Dionisio Gebarney 12/27/2024 Orders Only [facility] [address] [place], [place] [phone] Jose J Schaefer MD On valproic acid therapy (Primary Dx) 12/05/2024 Telephone [facility] [address], [place] [phone] aJdeestella Josie, FELIBERTO 11/20/2024 Refill [facility] [address] [place], [place] [phone] Jose J Schaefer MD 10/25/2024 1:00 PM EST Telemedicine [facility] [address] [place], [place] [phone] Jose J Schaefer MD Adjustment disorder with [...] Description 01/02/2025 8:00 AM EDT Office Visit [facility] [address] [place] [address] Jennifer Geanpreet [address] [place] [address] Health Maintenance Due Date Last Done Comments Dental Oral Exam 1985 Dental Prophylaxis 1985 Dental X-Ray: Bitewings 1985 Dental X-Ray: Full Mouth 1985 IPV Vaccines (3 of 3 - 4-dose series) 1989 04/22/1986, 1985, 1985 Alcohol/Substance Use Screening 1997 Family Planning (PISQ) 02/01/2000 Pneumococcal Vaccine: Pediatrics (0 to 5 Years) and At-Risk Patients (6 to 49) Years) (1 of 2 - PCV) 02/01/2004 DTaP/Tdap/Td Vaccines (5 - Tdap) 11/19/2023 11/18/2023, 02/07/2008, 05/05/1986, Additional history exists Depression Screening 04/13/2025 04/13/2024, 04/13/20 24 SDOH Screening 04/29/2025 04/29/2024 Tobacco Screening 12/27/2025 12/27/2024 Lipid Panel 04/29/2029 04/29/2024 Zoster Vaccines (1 of 2) 2035 RSV Patients and Patients Aged 60 years or older (1 - 1-dose 75+ series) 02/01/2060 Meningococcal Vaccine Aged Out 03/24/1990, 990 No longer eligible based on patient's age [...] Procedure Name Priority Date/Time Associated Diagnosis Comments CASE PRESENTATION, DETAILED AND EXTENSIVE TREATMENT PLANNING Routine 12/27/2024 11:00 AM EDT INTRAORAL - PERIAPICAL FIRST RADIOGRAPHIC IMAGE Routine 12/27/2024 11:00 AM EDT LIMITED ORAL EVALUATION - PROBLEM FOCUSED Routine 12/27/2024 11:00 AM EDT HEPATITIS PANEL, GENERAL Routine 04/29/2024 12:27 PM EDT Healthcare maintenance HIV 1/2 ANTIGEN/ANTIBODY, FOURTH GENERATION W/RFL Routine 04/29/2024 12:27 PM EDT Healthcare maintenance LIPID PANEL, STANDARD Routine 04/29/2024 12:27 PM EDT Healthcare maintenance from Last 3 Months or Most Recently Relevant to Health Maintenance Results * Hepatitis A,B,C Profile (04/29/2024 12:27 PM EDT) Hepatitis A IgM Nonreactive Nonreactive [facility] Comment:IgM antibodies to PHAM V not detected; does not exclude earlyacute or recovered HAV infection. ~Hepatitis B Surface Antibody REACTIVE Nonreactive [facility] Comment:REACTIVE: > 11.99 mI U/mL Hepatitis B Core Antibody Nonreactive Nonreactive [facility] Hepatitis C Antibody Nonreactive Nonreactive [facility] Comment:Antibodies to HCV no t detected; does not exclude early acuteHCV infection. Hepatitis B Surface Ag Negative Negative [facility] Blood Venous blood specimen / Unknown 04/29/2024 12:27 PM EDT 04/29/2024 1:15 PM EDT [facility] LAB BLOOD ORDERABLES Final Re sult Performing Organization Address [facility]/ZIP Co de Phone Number [facility] [address] [place] [address] [phone] * HIV-1/2 Antigen and Antibodies, Fourth Generation, with Reflexes (04/29/2024 12:27 PM EDT) HIV AB/AG Nonreactive Nonreactive [facility] Comment:HIV-1 p24 Ag and/or HIV-1/HIV-2 Ab not detected.A test result that is nonreactive does not exclude thepossibility of exposure to or infection with HIV-1 and/orHIV-2. Nonreactive results in this assay for individualswith prior exposure to HIV-1 and/or HIV-2 may be due toantigen and antibody levels that are below the limit ofdetection of this assay.The [employer] HIV Ag/Ab Combo assay result andsupplemental assay results should be interpreted inconjunction with the patient's clinical presentation,history and other laboratory results. If the results areinconsistent with clinical evidence, additional testing issuggested to confirm the result. Blood Venous blood specimen / Unknown 04/29/2024 12:27 PM EDT 04/29/2024 1:15 PM EDT [facility] LAB BLOOD ORDERABLES Final Re sult Performing Organization Address [facility]/ZIP Co de Phone Number [facility] [address] [place] [phone] [phone] * (ABNORMAL) Lipid Panel, Standard (04/29/2024 12:27 PM EDT) Triglycerides 95 <150 mg/dL [facility] Comment:Desirable Triglyceri de: less than 150 mg/dLBorderline High Triglyceride 150-199 mg/dLHigh Triglyceride: 200-499 mg/dLVery High Triglyceride: greater than or equal to 5OO mg/dL Cholesterol 190 <200 mg/dL [facility] Comment:Desirable Cholestero l: less than 200 mg/dLBorderline High Cholesterol: 200-239 mg/dLHigh Cholesterol: greater than 239 mg/dL LDL Cholesterol Calculated 128(H) <100 mg/dL [facility] Comment:Desirable LDL: less than 100 mg/dLNear Optimal/Above Optimal LDL: 110- 129 mg/dLBorderline High LDL: 130-159 mg/dLHigh LDL: 160-189 mg/dLVery High LDL: greater than or equal to 190 mg/dL HDL Cholesterol 43 >40 mg/dL [facility] Comment:Desirable HDL: great er than 40 mg/dL Note: This HDL assay may give artificially low results in patients with liver disease. Blood Venous blood specimen / Unknown 04/29/2024 12:27 PM EDT 04/29/2024 1:15 PM EDT [facility] LAB BLOOD ORDERABLES Final Re sult [facility] [address] [place] [address] [phone] from Last 3 Months or Most Recently Relevant to Health Maintenance Insurance [facility] LIMITED HS FULL DENTAL-[facility] MEDICA[facility] LIMITED ADULT DENTAL - HSN FULL (MEDICAID) Care Teams Box Office Agent Relationship Specialty Start Date End Date Jose J Schaefer MD [address] [place] [phone] PCP - General Internal Medicine 06/08/24
--- OUTSIDE RECORDS SUMMARY | 2024-12-28 07:59 | XMS_ITS | Clinical Summary ---
Author Organization [facility] Address [address] [place] [address] Care Team Providers Care Robotic Maintenance Technician Name Role Phone [facility] Primary Care Provider [phone] Allergies No known active allergies Medications DULoxetine [...] Description 03/02/2025 4:00 PM EDT Office Visit [facility] [address] [place] [address] [phone] Debarker Operator: Cierra Rasmussen PA [address] [place] [address] Health Maintenance Due Date Last Done Comments [...] 1-dose 75+ series) 02/01/2060 HIV Screening Completed 04/29/2024, 04/29/2024 COVID-19 Vaccine Completed 06/02/2024, , 09/30/2021, Additional history exists Hepatitis B Vaccines Completed 06/02/2024, 12/17/2023, 11/14/2023, Additional history exists Influenza Vaccine Completed 06/02/2024 Pneumococcal Vaccine: Pediatric (0-5 Years) and At-Risk Patients (6-50 Years) Aged Out No longer eligible based on patient's age to complete this topic Insurance [place] [address] HSNO/FREE CARE Care Teams Robotic Maintenance Technician Relationship Specialty Start Date End Date [facility] [address] [place] [phone] PCP - General 05/27/24
--- OUTSIDE RECORDS SUMMARY | 2024-12-28 07:59 | XMS_ITS | Encounter Summary ---
Author Organization [employer] Address [address] [place] [address] Care Team Providers Care Business Risk Consultant Name Role Phone Jose J Schaefer MD Primary Care Prov ider Reason for Visit * Reason Comments Dental Pain Broke front tooth ex isting shinto yesterday, no pain or sensitivity Encounter Details Date Type Department Care Team ([facility] Contact Info) Description 12/27/2024 11:00 AM EDT Office Visit [facility] [address] [place] [address] Nikhil Ge [address] [place] [address] Social History Tobacco Use Types Packs/Day Years [...] AM EDT documented as of this encounter Progress Notes * Nikhil Ge - 12/27/2024 11:00 AM EDT Images from the original note were not included. Dental procedures in this visit D0140 - LIMITED ORAL EVALUATION - PROBLEM FOCUSED (Completed) Service provider: Nikhil Ge Billger provider: Nikhil Ge [id number] - INTRAORAL - PERIAPICAL FIRST RADIOGRAPHIC IMAGE (Completed) Service provider: Nikhil Ge Billger provider: Nikhil Ge [id number] - CASE PRESENTATION, DETAILED AND EXTENSIVE TREATMENT PLANNING (Completed) Service provider: Nikhil Ge Billger provider: Nikhil Ge Patient ID: Vinh Nickerson is a 39 y.o. male. Time Out: Timeout Date: 12/27/24 (emergency), Timeout Time: 1113 Location: [facility] Tooth: #8 and #9 Procedure: Exam and X-rays Verified the above with patient, customer marketing assistant, and provider. Confirmed via patient's chart, intraorally and by radiographs. Public Information Specialist: Yes. Language: Cymro. Public Information Specialist's Name: Roberta Chief Complaint Patient presents with Dental Pain Broke front tooth existing shinto yesterday, no pain or sensitivity Medical Hx: Vitals: There were no vitals taken for this visit. History reviewed. No pertinent past medical history. Medications: Outpatient Encounter Medications as of 12/27/2024 Medication Sig Dispense Refill clonazePAM (KlonoPIN) 1 MG tablet Take 1 tablet (1 mg) by mouth 2 times daily. 60 tablet 0 divalproex (Depakote ER) 500 MG 24 hr tablet Take 1 tablet by mouth in the morning and 2 tablets atbedtime. Do not crush, chew, or split. 90 tablet 1 DULoxetine (Cymbalta) [address] capsule TAKE ONE CAPSULE TWICE DAILY, DO NOT BREAK, CRUSH, DISSOLVE OR CHEW 60 capsule 1 escitalopram (Lexapro) 10 MG tablet Take 1 tablet (10 mg) by mouth Once per day. 30 tablet 2 gabapentin (Neurontin) 100 MG capsule Take 1 capsule (100 mg) by mouth 2 times daily. 60 capsule 1 hydrOXYzine HCl (Atarax) 25 MG tablet Take 1 tablet (25 mg) by mouth every 6 (six) hours if needed for anxiety. 120 tablet 3 nicotine (Nicoderm CQ) 21 MG/24HR patch Place 1 patch on the skin 1 (one) time each day at the sametime. 30 patch 3 nicotine polacrilex (Nicorette) 4 MG gum CHEW 1 PIECE OF GUM EVERY 2 HOURS IF NEEDED FOR SMOKING CESSATION 200 each 2 propranolol (Inderal) 10 MG tablet Take 1 tablet (10 mg) by mouth if needed in the morning and at bedtime (Anxiety). 60 tablet 1 QUEtiapine (SEROquel) 100 MG tablet Take 2 tablets (200 mg) by mouth at bedtime. 60 tablet 1 No facility-administered encounter medications on file as of 12/27/2024. 39 y/o male presents for a emergency seen by Dr. Nikhil Ge, HOWARD. Chief Complaint: My front tooth broke yesterday but I don't have pain or sensitivity Medical History: Patient does not report any changes in health issues that could alter the Treatment Plan. Medical consult / medical clearance needed: None Allergies: Reviewed in EHR Medications: Reviewed in EHR Radiographs X-rays taken today: PA taken today Discussion: -Pt stated that there is no pain or sensitivity to hot/cold/sweet in #8, #9. -Upon exam, #8 and #9 missing restorations with recurrent decay evident. -Percussion -ve , palpation -ve, endo ice test- no lingering pain Dx: Normal pulp Normal apical tissues -Pt also stated that fillings broke two times in the past. Pt was recommended crown in #8 and composite shinto in #9 but patient wants filling for now and denied crown as of now and patient was made aware that restorations are prone to fracture. -Pt was informed that if any tooth becomes symptomatic post-op, schedule appointment and patient might need RCT/post/core/crown/extraction as needed. -Pt is aware that restorations are prone to fracture if care is not taken by patient and patient denied crown at this time. -Pt was informed that pt needs to contact net front end developer for any financial queries related to recommended treatment. -OHI reviewed. Emphasis was laid on maintaining good oral hygiene regimen at home along with regular visits to dentist. -Pt understood, was satisfied with our conversation and agreed with tx plan; dismissed in good condition. -All questions answered. Soft tissue exam: WNL; OCS- negative Head and neck exam: Lymph Nodes, Lips, Palate, Buccal Mucosa, Floor of Mouth, Tongue, Tonsils, Alveolar Ridges, Oropharynx, Salivary Ducts, Vestibules - no abnormal findings. TMJ/Occlusal - TMJ is within normal limits. Oral Cancer Risk - low Oral Hygiene Instruction Provided - Yes Oral Hygiene Instructions: Jayess two times daily, modified bowers technique, Floss daily, Electric toothbrush, Soft bristle toothbrush, Jayess Tongue. Referrals - None Treatment plan: -restorative -GLORY Rx: none NOTE- Pt stated that If I can use superglue to put some material on teeth meanwhile (in [place]) but patient was highly recommended NOT to do so including any DIY's that can cause infection, pain and eventually loss of tooth. Pt understood and agreed. All questions answered. NV: restorative Heading Machine Operator: Roberta Elizabeth Dentist: Dr. Nikhil Ge, DMD documented in this encounter Plan of Treatment Upcoming Encounters Date Type Department Care Team (Late st Contact Info) Description 01/02/2025 8:00 AM EDT Office Visit [facility] [address] [place] [address] Nikhil Ge [address] [place] [address] Scheduled Orders Name Type Priority Associated Diagnoses Orde r Schedule 8 MIDFL 8 MIDFL RESIN-BASED COMPOSITE - 4 OR MORE SURFACES (ANTERIOR) Dental Routine [address] arting 12/27/2024 9 MFL 9 MFL RESIN-BASED COMPOSITE - 3 SURF, ANTERIOR Dental Routine [address] arting 12/27/2024 documented as of this encounter Procedures Procedure Name Priority Date/Time Associated Diagnosis Comments LIMITED ORAL EVALUATION - PROBLEM FOCUSED Routine 12/27/2024 11:00 AM EDT INTRAORAL - PERIAPICAL FIRST RADIOGRAPHIC IMAGE Routine 12/27/2024 11:00 AM EDT CASE PRESENTATION, DETAILED AND EXTENSIVE TREATMENT PLANNING Routine 12/27/2024 11:00 AM EDT documented in this encounter Visit Diagnoses Not on filedocumented in this encounter Care Teams Business Risk Consultant Relationship Specialty Start Date End Date Giles Jose J Ac MD [address] [place] [phone] PCP - General Internal Medicine 06/08/24 documented as of this encounter
[2024-12-28 14:36] LABS: Valproate 63.4 mcg/mL (50.0-100.0)
== END 2024-12-28 07:56 | disposition home or self-care (01) ==
LOC: HO.CHCLDS 07:55
PROVIDERS: Visit Provider Internal Medicine
DX: Z79.899 Other long term (current) drug therapy (principal)
CPT/HCPCS: 36415; 80164

== ENCOUNTER 2025-01-11 08:56 | Outpatient (REF) | payer MEDICAID, OTHER, SELFPAY ==
--- NOTE | ~2025-01-11 | XR_ITS ---
EXAMINATION: XR LUMBOSACRAL SPINE CLINICAL INFORMATION: back pain COMPARISON: None available. TECHNIQUE: Three views of the lumbosacral spine. FINDINGS: No acute cortical disruption or malalignment. No lytic or thick lesions. XR/XR lumbar spine 2-3V IMPRESSION: No acute fracture or listhesis. Negative x-ray. Electronically signed by: Arcadio Arenas MD 01/11/2025 09:23 AM EDT
--- OUTSIDE RECORDS SUMMARY | 2025-01-11 09:25 | XMS_ITS | Clinical Summary ---
Author Organization [employer] Address [address] [place] [address] Care Team Providers Care Addressograph Operator Name Role Phone Jose J Schaefer MD Primary Care Prov ider Allergies No known active allergies Medications * This document contains information received from the source organization and may not represent a complete record from that organization. escitalopram (Lexapro) 10 MG tablet Take 1 [...] CHEW 60 capsule 1 11/22/19 25 Active hydrOXYzine HCl (Atarax) 50 MG tabletIndicati ons:Anxiety Take 1 tablet (50 mg) by mouth if needed in the morning, at noon, and at bedtime for anxiety. 90 tablet 1 01/04/20 25 025 Active gabapentin (Neurontin) 100 MG capsuleIndicat ions:Anxiety Take 1 capsule (100 mg) by mouth 2 times daily. 60 capsule 1 01/04/20 25 025 Active QUEtiapine (SEROquel) 100 MG tabletIndicati ons:Bipolar 1 disorder (CMS/HCC) Take 2 tablets (200 mg) by mouth at bedtime. 60 tablet 1 01/04/20 25 025 Active divalproex (Depakote ER) 500 MG 24 hr tabletIndicati ons:Bipolar 1 disorder (CMS/HCC) Take 1 tablet by mouth in the morning and 2 tablets at bedtime. Do not crush, chew, or split. 90 tablet 1 01/04/20 25 Active meloxicam (Mobic) 15 MG tabletIndicati ons:Acute right-sided low back pain with bilateral sciatica Take 1 tablet (15 mg) by mouth Once per day. 30 tablet 1 01/06/20 25 026 Active methocarbamol (Robaxin) 750 MG tabletIndicati ons:Acute right-sided low back pain with bilateral sciatica Take 1 tablet (750 mg) by mouth 4 times daily for 10 days. 40 tablet 01/06/20 25 025 Active hydrOXYzine HCl (Atarax) 25 MG tablet Take 1 tablet (25 mg) by mouth every 6 (six) hours if needed for anxiety. 120 tablet 3 06/14/20 24 025 Discontinued(Re order (will not trigger notification to Pharmacy)) gabapentin (Neurontin) 100 MG capsuleIndicat ions:Anxiety Take 1 capsule (100 mg) by mouth 2 times daily. 60 capsule 1 11/30/19 25 025 Discontinued(Re order (will not trigger notification to Pharmacy)) QUEtiapine (SEROquel) 100 MG tabletIndicati ons:Bipolar 1 disorder (CMS/HCC) Take 2 tablets (200 mg) by mouth at bedtime. 60 tablet 1 11/30/19 25 025 Discontinued(Re order (will not trigger notification to Pharmacy)) divalproex (Depakote ER) 500 MG 24 hr tabletIndicati ons:Bipolar 1 disorder (CMS/HCC) Take 1 tablet by mouth in the morning and 2 tablets at bedtime. Do not crush, chew, or split. 90 tablet 1 11/30/19 25 025 Discontinued(Re order (will not trigger notification to Pharmacy)) propranolol (Inderal) 10 MG tabletIndicati ons:Anxiety Take 1 tablet (10 mg) by mouth if needed in the morning and at bedtime (Anxiety). 60 tablet 1 11/30/19 25 025 Discontinued(Al ternate therapy) Active Problems Problem Noted Date Diagnosed Date Benzodiazepine abuse 01/03/2025 Bipolar 1 disorder 11/29/2024 Anxiety 11/29/2024 Adjustment [...] BH/psych therapy locally, he refers has a [facility] psychiatrist, refers he will get prescription delivered [facility]. I made clear with cook sauce as help that the best option would be to be followed locally for his mental conditions, also I made clear that if he will receive services from a psychiatrist in [place] and he needs the prescription from me [...] organization. Date Type Department Care Team Description 01/10/2025 Telephone [facility] [address] [place] [address] Jose J Schaefer MD 01/05/2025 3:30 PM EDT Office Visit [facility] [address] [place] [address] Earl Pryor MD Acute right-sided low back pain with bilateral sciatica (Primary Dx) 01/05/2025 Travel 01/02/2025 8:00 AM EDT Office Visit [facility] [address] [place] [address] Dionisio Gepreet 01/02/2025 Telephone [facility] [address] [place] [address] Jose J Schaefer MD Medication Question 12/28/2024 Telephone [facility] [address] [place] [address] Jose J Schaefer MD Walk-In 12/27/2024 11:00 AM EDT Office Visit [facility] [address] [place] [address] GeDionisio santospreivis 12/27/2024 Orders Only [facility] [address] [place] [address] Jose J Schaefer MD On valproic acid therapy (Primary Dx) 12/05/2024 Telephone [facility] [address] [place] [address] Josie Rios OD 11/20/2024 Refill [facility] [address] [place] [address] Jose J Schaefer MD 10/25/2024 1:00 PM EST Telemedicine [facility] [address] [place] [address] Jose J Schaefer MD Adjustment disorder with [...] Sign Reading Time Taken Comments Blood Pressure 118/75 01/05/2025 3:20 PM EDT Pulse 91 01/05/2025 3:20 PM EDT Temperature 36.8 ??C (98.2 ??F) 01/05/2025 3:20 PM ED T Respiratory Rate 20 01/05/2025 3:20 PM EDT Oxygen Saturation 97% 01/05/2025 3:20 PM EDT Inhaled Oxygen Concentration - - Weight 85.3 kg (188 lb) 01/05/2025 3:20 PM EDT Height 175.3 cm (5' 9 ) 01/05/2025 3:20 PM EDT Body Mass Index 27.76 01/05/2025 3:20 PM EDT Plan of Treatment Upcoming Encounters Date Type Department Care Team (Late st Contact Info) Description 01/11/2025 2:20 PM EDT Office Visit [facility] [address] [place] [address] 03/15/2025 4:00 PM EDT Office Visit [facility] [address] [place] [address] Jose J Schaefer MD [address] [place] [address] Health Maintenance Due Date Last Done Comments [...] 04/13/20 SDOH Screening 04/29/2025 04/29/2024 Tobacco Screening 01/05/2026 01/05/2025 Lipid Panel 04/29/2029 04/29/2024 Zoster Vaccines (1 [...] PRESENTATION, DETAILED AND EXTENSIVE TREATMENT PLANNING Routine 01/02/2025 8:00 AM EDT 9 MFL RESIN-BASED COMPOSITE - 3 SURF, ANTERIOR Routine 01/02/2025 8:00 AM EDT 8 MIDFL RESIN-BASED COMPOSITE - 4 OR MORE SURFACES (ANTERIOR) Routine 01/02/2025 8:00 AM EDT VALPROIC ACID Routine 12/28/2024 9:04 AM EDT On valproic acid therapy CASE PRESENTATION, DETAILED AND EXTENSIVE TREATMENT PLANNING [...] Recently Relevant to Health Maintenance Results * Valproic Acid Total (12/28/2024 9:04 AM EDT) Pathologist [facility] Valproate 63.4 50.0 - 100.0 mcg/mL [facility] Blood Venous blood specimen / Unknown 12/28/2024 9:04 AM EDT 12/28/2024 2:06 PM EDT Jose J Ac MD LAB BLOOD ORDERABL ES Final Result Performing Organization Address [facility] Co de Phone Number [facility] [address] [place] [phone] * Hepatitis A,B,C Profile (04/29/2024 12:27 PM EDT) Pathologist [facility] Hepatitis A IgM Nonreactive Nonreactive [facility] Comment:IgM antibodies to PHAM V not detected; does not exclude earlyacute or recovered HAV infection. ~Hepatitis B Surface Antibody REACTIVE Nonreactive [facility] Comment:REACTIVE: > 11.99 mI U/mL Hepatitis B Core Antibody Nonreactive Nonreactive [facility] Hepatitis C Antibody Nonreactive Nonreactive [facility] Comment:Antibodies to HCV no t detected; does not exclude early acuteHCV infection. Hepatitis B Surface Ag Negative Negative [facility] Blood Venous blood specimen / Unknown 04/29/2024 12:27 PM EDT 04/29/2024 1:15 PM EDT [facility] LAB BLOOD ORDERABLES Final Re sult Performing Organization Address [facility] Co de Phone Number [facility] [address] [place] [phone] [phone] * HIV-1/2 Antigen and Antibodies, Fourth Generation, with Reflexes (04/29/2024 12:27 PM EDT) HIV AB/AG Nonreactive Nonreactive [facility] Comment:HIV-1 p24 Ag and/or HIV-1/HIV-2 Ab not detected.A test result that is nonreactive does not exclude thepossibility of exposure to or infection with HIV-1 and/orHIV-2. Nonreactive results in this assay for individualswith prior exposure to HIV-1 and/or HIV-2 may be due toantigen and antibody levels that are below the limit ofdetection of this assay.The i4.ms HIV Ag/Ab Combo assay result andsupplemental assay results should be interpreted inconjunction with the patient's clinical presentation,history and other laboratory results. If the results areinconsistent with clinical evidence, additional testing issuggested to confirm the result. Blood Venous blood specimen / Unknown 04/29/2024 12:27 PM EDT 04/29/2024 1:15 PM EDT [facility] LAB BLOOD ORDERABLES Final Re sult [facility] [address] [place] [phone] * (ABNORMAL) Lipid Panel, Standard (04/29/2024 12:27 PM EDT) Triglycerides 95 <150 mg/dL [facility] Comment:Desirable Triglyceri de: less than 150 mg/dLBorderline High Triglyceride 150-199 mg/dLHigh Triglyceride: 200-499 mg/dLVery High Triglyceride: greater than or equal to 5OO mg/dL Cholesterol 190 <200 mg/dL [facility] Comment:Desirable Cholestero l: less than 200 mg/dLBorderline High Cholesterol: 200-239 mg/dLHigh Cholesterol: greater than 239 mg/dL LDL Cholesterol Calculated 128(H) <100 mg/dL [facility] Comment:Desirable LDL: less than 100 mg/dLNear Optimal/Above Optimal LDL: 110- 129 mg/dLBorderline High LDL: 130-159 mg/dLHigh LDL: 160-189 mg/dLVery High LDL: greater than or equal to 190 mg/dL HDL Cholesterol 43 >40 mg/dL [facility] Comment:Desirable HDL: great er than 40 mg/dL Note: This HDL assay may give artificially low results in patients with liver disease. Blood Venous blood specimen / Unknown 04/29/2024 12:27 PM EDT 04/29/2024 1:15 PM EDT [facility] EQUIPMENT VALIDATION ENGINEER LAB BLOOD ORDERABLES Final Re sult [facility] [address] [place] [phone] from Last 3 Months or Most Recently Relevant to Health Maintenance Insurance [facility] FULL DENTAL-[place] ADULT DENTAL - [facility] FULL (MEDICAID) Care Teams Addressograph Operator Relationship Specialty Start Date End Date Jose J Schaefer MD [address] [place] [phone] PCP - General Internal Medicine 06/08/24
--- OUTSIDE RECORDS SUMMARY | 2025-01-11 09:25 | XMS_ITS | Referral Summary ---
Author Organization [facility] Address [address] [place] [address] Care Team Providers Care Sustainability Coach Name Role Phone [facility] Primary Care Provider [phone] Allergies No known active allergies Medications DULoxetine [...] Description 03/02/2025 4:00 PM EDT Office Visit [facility] [address] [place] [address] [phone] Guest Services Ambassador: Cierra Rasmussen PA [address] [place] [address] Insurance [place]FREE CARE Care Teams Sustainability Coach Relationship Specialty Start Date End Date [facility] [address] [place] [address] PCP - General 05/27/24
--- OUTSIDE RECORDS SUMMARY | 2025-01-11 09:25 | XMS_ITS | Encounter Summary ---
Author Organization [employer] Address [address] [place] [address] Care Team Providers Care Men'S Custom Hair Piece Consultant Name Role Phone Jose J Schaefer MD Primary Care Prov ider Encounter Details Date Type Department Care Team (Late st Contact Info) Description 01/10/2025 Telephone [facility] [address] [place] [address] Jose J Schaefer MD [address] [place] [address] Social History Tobacco Use Types Packs/Day Years Used Date Smoking Tobacco: Every Day Cigarettes Passive Smoke Exposure: Past Smokeless Tobacco: Never Housing Stability Answer Date Recorded What is your housing situation today? I have sharla kacey 04/29/[address] you li [...] AM EDT documented as of this encounter Miscellaneous Notes * Telephone Encounter - Lorri Walker RN - 01/10/2025 2:21 PM EDT Patient walk-in. He stated the medication that was prescribed on January 05, 2025 (Robaxin and Mobic) are not working for him and he is requesting an alternative. States he is in the same amount of pain, if not greater than it was. Routing to provider for review and recommendations. documented in this encounter Plan of Treatment Upcoming Encounters Date Type Department Care Team (Late st Contact Info) Description 01/11/2025 2:20 PM EDT Office Visit [facility] [address] [place] [address] 03/15/2025 4:00 PM EDT Office Visit [facility] [address] [place] [address] Jose J Schaefer MD [address] [place] [address] documented as of this encounter Visit Diagnoses Not on filedocumented in this encounter Care Teams Men'S Custom Hair Piece Consultant Relationship Specialty Start Date End Date Jose J Schaefer MD [address] [place] [address] PCP - General Internal Medicine 06/08/24 documented as of this encounter
--- OUTSIDE RECORDS SUMMARY | 2025-01-11 09:25 | XMS_ITS | Clinical Summary ---
Author Organization [facility] Address [address] [place] [address] Care Team Providers Care Tool Grinder Operator Surface Name Role Phone [facility] Primary Care Provider [phone] Allergies No known active allergies Medications DULoxetine [...] Description 03/02/2025 4:00 PM EDT Office Visit [facility] [address] [place] [address] [phone] Vp Genetic: Cierra Rasmussen PA [address] [place] [address] Health Maintenance Due Date Last Done Comments [...] patient's age to complete this topic [place] [address] [place] [address] HSNO/FREE CARE Care Teams Tool Grinder Operator Surface Relationship Specialty Start Date End Date [facility] [address] [place] [phone] PCP - General 05/27/24
== END 2025-01-11 08:57 | disposition home or self-care (01) ==
LOC: HO.XRAY 08:56
PROVIDERS: PCP Internal Medicine; Visit Provider Internal Medicine
DX: M54.42 Lumbago with sciatica, left side (principal); M54.41 Lumbago with sciatica, right side
CPT/HCPCS: 72100

== ENCOUNTER → 2025-01-11 09:03 | Outpatient (BNV) | payer MEDICAID, SELFPAY | PROVIDERS: PCP Internal Medicine; Visit Provider Radiology Diagnostic Radiology | DX: M54.9 Dorsalgia, unspecified (principal) | CPT/HCPCS: 72100 ==

== ENCOUNTER 2025-01-12 09:11 | Outpatient (REF) | payer MEDICAID, OTHER, SELFPAY ==
--- NOTE | ~2025-01-12 | XR_ITS ---
EXAMINATION: XR SHOULDER 2 OR MORE VIEWS LEFT HISTORY: pain COMPARISON: There are no prior studies available for comparison. FINDINGS: Four views of the shoulder are submitted. Osseous mineralization is normal. There is no fracture or dislocation. The glenohumeral and acromioclavicular joint spaces are preserved. The soft tissues are unremarkable. XR/XR shoulder LT min 2V IMPRESSION: Unremarkable examination of the left shoulder. Electronically signed by: Alok Moraes MD 01/12/2025 09:43 AM EDT
--- OUTSIDE RECORDS SUMMARY | 2025-01-12 09:46 | XMS_ITS | Referral Summary ---
Author Organization [facility] Address [address] [place] [address] Care Team Providers Care Derrick Boat Leverman Name Role Phone [facility] Primary Care Provider [phone] Allergies No known active allergies Medications DULoxetine [...] Description 03/02/2025 4:00 PM EDT Office Visit [facility] [address] [place] [phone] Counter Top Assembler: Cierra Rasmussen PA [address] [place] [address] Insurance [place] C[place] Care Teams Derrick Boat Leverman Relationship Specialty Start Date End Date [facility] [address] [place] [address] PCP - General 05/27/24
--- OUTSIDE RECORDS SUMMARY | 2025-01-12 09:46 | XMS_ITS | Clinical Summary ---
Author Organization [employer] Address [address] [place] [address] Care Team Providers Care Property Officer Name Role Phone Jose J Schaefer MD [...] split. 90 tablet 1 01/04/20 25 Active predniSONE (Deltasone) 20 MG tablet Take 1 tablet (20 mg) by mouth Once per day for 5 days. 5 tablet 01/12/20 25 025 Active cyclobenzaprin e (Flexeril) 10 MG tablet Take 1 tablet (10 mg) by mouth at bedtime for 10 days. 10 tablet 01/12/20 25 025 Active naproxen (Naprosyn) 500 MG tablet Take 1 tablet (500 mg) by mouth 2 times daily. 60 tablet 01/12/20 25 025 Active hydrOXYzine HCl (Atarax) 25 [...] 1 11/30/19 25 025 Discontinued(Al ternate therapy) meloxicam (Mobic) 15 MG tabletIndicati ons:Acute right-sided low back pain with bilateral sciatica Take 1 tablet (15 mg) by mouth Once per day. 30 tablet 1 01/06/20 25 025 Discontinued methocarbamol (Robaxin) 750 MG tabletIndicati ons:Acute right-sided low back pain with bilateral sciatica Take 1 tablet (750 mg) by mouth 4 times daily for 10 days. 40 tablet 01/06/20 25 025 Discontinued Active Problems Problem Noted Date [...] /psych therapy locally, he refers has a [place] psychiatrist, refers he will get prescription delivered from [facility]. I made clear with stopper setter as help that the best option would be to be followed locally for his mental conditions, also I made clear that if he will receive services from a psychiatrist in [place] and he needs the prescription from me [...] organization. Date Type Department Care Team Description 01/11/2025 2:20 PM EDT Office Visit [facility] [address] [place] [address] Faviola Fung MD Pain of right hip (Primary Dx); Chronic left shoulder pain 01/11/2025 Travel 01/11/2025 Telephone [facility] MEDICINE [address] [place] [address] Tori Hardy [place] 01/10/2025 Telephone [facility] [address] [place] [address] Jose J Schaefer MD 01/05/2025 3:30 PM EDT Office Visit [facility] [address] [place] [address] Earl Pryor MD Acute right-sided low back pain with bilateral sciatica (Primary Dx) 01/05/2025 Travel 01/02/2025 8:00 AM EDT Office Visit [facility] D[facility] [address] [place] [address] Nikhil Ge 01/02/2025 Telephone [facility] [address] [place] [address] Jose J Schaefer MD Medication Question 12/28/2024 Telephone [facility] [address] [place] [address] Jose J Schaefer MD Walk-In 12/27/2024 11:00 AM EDT Office Visit [facility] [address] [place] [address] Nikhil Ge 12/27/2024 Orders Only [facility] [address] [place] [address] Jose J Schaefer MD On valproic acid therapy (Primary Dx) 12/05/2024 Telephone [facility] OPTOMETRY [address] [place] [address] Josie Rios, FELIBERTO 11/20/2024 Refill [facility] PEDS [address] [place] [address] Jose J Schaefer MD 10/25/2024 1:00 PM EST Telemedicine [facility] PEDS [address] [place] [address] Jose J Schaefer MD Adjustment disorder with [...] Sign Reading Time Taken Comments Blood Pressure 112/76 01/11/2025 2:35 PM EDT Pulse 92 01/11/2025 2:35 PM EDT Temperature 36.6 ??C (97.8 ??F) 01/11/2025 2:35 PM ED T Respiratory Rate 18 01/11/2025 2:35 PM EDT Oxygen Saturation 97% 01/05/2025 3:20 PM EDT Inhaled Oxygen Concentration - - Weight 84.4 kg (186 lb) 01/11/2025 2:35 PM EDT Height 175.3 cm (5' 9 ) 01/11/2025 2:35 PM EDT Body Mass Index 27.47 01/11/2025 2:35 PM EDT Plan of Treatment Upcoming Encounters Date Type Department Care Team (Late st Contact Info) Description 03/15/2025 4:00 PM EDT Office Visit [facility] [address] [place], [place] [phone] Jose J Schaefer MD [address] [place], [place] [phone] Health Maintenance Due Date Last Done Comments [...] 24 SDOH Screening 04/29/2025 04/29/2024 Tobacco Screening 01/11/2026 01/11/2025 Lipid Panel 04/29/2029 04/29/2024 Zoster Vaccines (1 [...] Procedure Name Priority Date/Time Associated Diagnosis Comments XR LUMBAR SPINE 2-3 VIEWS Routine 01/11/2025 9:03 AM EDT Acute right-sided low back pain with bilateral sciatica CASE PRESENTATION, DETAILED AND EXTENSIVE TREATMENT PLANNING [...] Recently Relevant to Health Maintenance Results * XR Lumbar Spine 2-3 Views (01/11/2025 9:03 AM EDT) Anatomical Region Laterality Modality Spine, L-spine Radiographic Malina ging 01/11/2025 9:03 AM EDT Narrative 01/11/2025 9:25 AM EDT ? [facility] ?[address] ?[place] [address] ?XRay Report ? Signed ? Patient: Vinh Morales ?MR#: M ?? [id number] ? : 1985 ?Acct:[id number] ? Age/Sex: 39 / M ?ADM Date: 05/07/25 ? Loc: HO.XRAY ? Attending Dr: Earl Pryor MD ? Ordering Physician: Earl Pryor MD ?? Date of Service: 01/11/25 ?? Procedure(s): XR lumbar spine 2-3V ?? Accession Number(s): [id number] ? cc: Earl Pryor MD ? EXAMINATION: ?? XR LUMBOSACRAL SPINE ? CLINICAL INFORMATION: ?? back pain ? COMPARISON: ?? None available. ? TECHNIQUE: ?? Three views of the lumbosacral spine. ? FINDINGS: ?? No acute cortical disruption or malalignment. No lytic or thick ?? lesions. ? XR/XR lumbar spine 2-3V ?? IMPRESSION: ?? No acute fracture or listhesis. Negative x-ray. ? Electronically signed by: ??Arcadio Arenas MD ??01/11/2025 09:23 AM ?? EDT RP ? Dictated By: ?Arcadio Mancera MD ? Signed By: ?<Electronically signed by Arcadio Hernandez MD in OV> ? 01/11/25 0923 ? DD/ 0903 ? TD/TT: 01/11/25 0921 ? Metal Filer: ? Procedure Note Max Graham - 01/11/2025 [place] [address] XRay Report Signed Patient: Vinh MoralesMR#: M [id number] : 1985Acct:[id number] Age/Sex: 39 / MADM Date: 01/11/25 Loc: CAN Attending Dr: Earl Pryor MD Ordering Physician: Earl Pryor MD Date of Service: 01/11/25 Procedure(s): XR lumbar spine 2-3V Accession Number(s): [id number] cc: Earl Pryor MD EXAMINATION: XR LUMBOSACRAL SPINE CLINICAL INFORMATION: back pain COMPARISON: None available. TECHNIQUE: Three views of the lumbosacral spine. FINDINGS: No acute cortical disruption or malalignment. No lytic or thick lesions. XR/XR lumbar spine 2-3V IMPRESSION: No acute fracture or listhesis. Negative x-ray. Electronically signed by: Arcadio Arenas MD 01/11/2025 09:23 AM EDT RP Dictated By: Arcadio Mancera MD Signed By: <Electronically signed by Arcadio Hernandez MDin OV> 01/11/25922 DD/ 2 TD/TT: 01/11/25920 Metal Filer: Earl Pryor MD IMG XR PROCEDURES Final Res ult * Valproic Acid Total (12/28/2024 9:04 AM EDT) Valproate 63.4 50.0 - 100.0 mcg/mL [facility] Blood Venous blood specimen / Unknown 12/28/2024 9:04 AM EDT 12/28/2024 2:06 PM EDT Jose J Ac MD LAB BLOOD ORDERABL ES Final Result [facility] [address] [place] [phone] * Hepatitis A,B,C Profile (04/29/2024 12:27 PM EDT) Hepatitis A IgM Nonreactive Nonreactive [facility] Comment:IgM antibodies to PHAM V not detected; does not exclude earlyacute or recovered HAV infection. ~Hepatitis B Surface Antibody REACTIVE Nonreactive [facility] Comment:REACTIVE: > 11.99 mI U/mL Hepatitis B Core Antibody Nonreactive Nonreactive [facility] Hepatitis C Antibody Nonreactive Nonreactive [facility] Comment:Antibodies to HCV no t detected; does not exclude early acuteHCV infection. Hepatitis B Surface Ag Negative Negative [facility] Blood Venous blood specimen / Unknown 04/29/2024 12:27 PM EDT 04/29/2024 1:15 PM EDT [facility] LAB BLOOD ORDERABLES Final Re sult Performing Organization Address [facility]/ZIP Co de Phone Number [facility] [address] [place] [phone] * HIV-1/2 Antigen and Antibodies, Fourth Generation, with Reflexes (04/29/2024 12:27 PM EDT) HIV AB/AG Nonreactive Nonreactive [facility] Comment:HIV-1 p24 Ag and/or HIV-1/HIV-2 Ab not detected.A test result that is nonreactive does not exclude thepossibility of exposure to or infection with HIV-1 and/orHIV-2. Nonreactive results in this assay for individualswith prior exposure to HIV-1 and/or HIV-2 may be due toantigen and antibody levels that are below the limit ofdetection of this assay.The [employer] HIV Ag/Ab Combo assay result andsupplemental assay results should be interpreted inconjunction with the patient's clinical presentation,history and other laboratory results. If the results areinconsistent with clinical evidence, additional testing issuggested to confirm the result. Blood Venous blood specimen / Unknown 04/29/2024 12:27 PM EDT 04/29/2024 1:15 PM EDT [facility] LAB BLOOD ORDERABLES Final Re sult Performing Organization Address [facility]/ZIP Co de Phone Number [facility] [address] [place] [phone] * (ABNORMAL) Lipid Panel, Standard (04/29/2024 12:27 PM EDT) Triglycerides 95 <150 mg/dL [facility] Comment:Desirable Triglyceri de: less than 150 mg/dLBorderline High Triglyceride 150-199 mg/dLHigh Triglyceride: 200-499 mg/dLVery High Triglyceride: greater than or equal to 5OO mg/dL Cholesterol 190 <200 mg/dL [facility] Comment:Desirable Cholestero l: less than 200 mg/dLBorderline High Cholesterol: 200-239 mg/dLHigh Cholesterol: greater than 239 mg/dL LDL Cholesterol Calculated 128(H) <100 mg/dL [facility] Comment:Desirable LDL: less than 100 [...] 12:27 PM EDT 04/29/2024 1:15 PM EDT [facility] CREPE LAMINATOR OPERATOR LAB BLOOD ORDERABLES Final Re sult [facility] [address] [place] [phone] [phone] from Last 3 Months or Most Recently Relevant to Health Maintenance Insurance [facility] HSN FULL [place] [id number] [facility] - HSN FULL (MEDICAID) Care Teams Property Officer Relationship Specialty Start Date End Date Jose J Schaefer MD [address] [place], [place] [address] [address] PCP - General Internal Medicine 06/08/24
--- OUTSIDE RECORDS SUMMARY | 2025-01-12 09:47 | XMS_ITS | Clinical Summary ---
Author Organization [facility] Address [address] [place] [address] Care Team Providers Care Hydraulic Controls Technician Name Role Phone [facility] Primary Care Provider [phone] Allergies No known active allergies Medications DULoxetine [...] Description 03/02/2025 4:00 PM EDT Office Visit [facility] [address] [place] [address] [phone] Motorbike Courier: Cierra Rasmussen PA [address] [place] [address] Health Maintenance Due Date Last Done Comments [...] patient's age to complete this topic [place] [address] [place] [address] HSNO/FREE CARE Care Teams Hydraulic Controls Technician Relationship Specialty Start Date End Date [facility] [address] [place] [phone] PCP - General 05/27/24
--- OUTSIDE RECORDS SUMMARY | 2025-01-12 09:47 | XMS_ITS | Encounter Summary ---
Author Organization [employer] Address [address] [place] [address] Care Team Providers Care Humane Agent Name Role Phone Jose J Schaefer MD Primary Care Prov ider Encounter Details Date Type Department Care Team (Late st Contact Info) Description 01/10/2025 Telephone [facility] [address] [place] [address] Jose J Schaefer MD [address] [place] [address] Social History Tobacco Use Types Packs/Day Years [...] Description 03/15/2025 4:00 PM EDT Office Visit [facility] [address] [place] [address] Jose J Schaefer MD [address] [place] [address] documented as of this encounter Visit Diagnoses Not on filedocumented in this encounter Care Teams Humane Agent Relationship Specialty Start Date End Date Jose J Schaefer MD [address] [place] [address] PCP - General Internal Medicine 06/08/24 documented as of this encounter
--- OUTSIDE RECORDS SUMMARY | 2025-01-12 09:47 | XMS_ITS | Encounter Summary ---
Author Organization [employer] Address [address] [place] [address] Care Team Providers Care Flight Director Name Role Phone Jose J Schaefer MD Primary Care Prov ider Encounter Details Date Type Department Care Team (Latest Contact Info) Description 01/11/2025 Travel Social History Tobacco Use Types Packs/Day Years [...] Description 03/15/2025 4:00 PM EDT Office Visit [facility] & PEDS [address] [place] [address] Jose J Schaefer MD [address] [place] [address] documented as of this encounter Visit Diagnoses Not on filedocumented in this encounter Care Teams Flight Director Relationship Specialty Start Date End Date Jose J Schaefer MD [address] [place] [address] PCP - General Internal Medicine 06/08/24 documented as of this encounter
--- OUTSIDE RECORDS SUMMARY | 2025-01-12 09:47 | XMS_ITS | Encounter Summary ---
Author Organization [employer] Address [address] [place] [address] Care Team Providers Care Engineering Analyst Name Role Phone Jose J Schaefer MD Primary Care Prov ider Encounter Details Date Type Department Care Team (Late st Contact Info) Description 01/11/2025 Telephone [facility] MED[facility] [address] [place] [address] Tori Hardy [place] Social History Tobacco Use Types Packs/Day Years [...] encounter Miscellaneous Notes * Telephone Encounter - Tori Hardy [place] - 01/11/2025 10:02 AM EDT Received OBAT referral, called pt to schedule appt, but pt's substance choice does not qualify for suboxone, I asked pt if he would atleast like to speak with a recovery agent for recovery support, pt agreed, referred to recovery coaches. documented in this encounter Plan of Treatment Upcoming Encounters Date Type Department Care Team (Late st Contact Info) Description 03/15/2025 4:00 PM EDT Office Visit [facility] PED[facility] [address] [place] [address] Jose J Schaefer MD [address] [place] [address] documented as of this encounter Visit Diagnoses Not on filedocumented in this encounter Care Teams Engineering Analyst Relationship Specialty Start Date End Date Jose J Schaefer MD [address] [place] [address] PCP - General Internal Medicine 06/08/24 documented as of this encounter
--- OUTSIDE RECORDS SUMMARY | 2025-01-12 09:47 | XMS_ITS | Encounter Summary ---
Author Organization [employer] Address [address] [place] [address] Care Team Providers Care First Line Production Supervisor Name Role Phone Jose J Schaefer MD Primary Care Prov ider Reason for Referral * Consultation (Routine) - Closed Specialty Diagnoses / Procedures Referred By Carlos t Referred To Contact Physical Therapy Diagnoses Pain of right hip April Fung MD [address] [place] [address] Phone: tel: fax: Referral ID Status Reason Start Date Expiration Date V isits Requested Visits Authorized [id number] Closed Specialty Services Required 01/11/2025 01/11/2026 1 1 Reason for Visit * Reason Comments Hip Pain Encounter Details Date Type Department Care Team (Late st Contact Info) Description 01/11/2025 2:20 PM EDT Office Visit [facility] PEDS [address] [place] [address] April Fung MD [address] [place] [address] Pain of right hip (Primary Dx); Chronic left shoulder pain Social History Tobacco Use Types Packs/Day Years [...] AM EDT documented as of this encounter Last Filed Vital Signs Vital Sign Reading Time Taken Comments Blood Pressure 112/76 01/11/2025 2:35 PM EDT Pulse 92 01/11/2025 2:35 PM EDT Temperature 36.6 ??C (97.8 ??F) 01/11/2025 2:35 PM ED T Respiratory Rate 18 01/11/2025 2:35 PM EDT Oxygen Saturation - - Inhaled Oxygen Concentration - - Weight 84.4 kg (186 lb) 01/11/2025 2:35 PM EDT Height 175.3 cm (5' 9 ) 01/11/2025 2:35 PM EDT Body Mass Index 27.47 01/11/2025 2:35 PM EDT documented in this encounter Progress Notes * April Fung MD - 01/11/2025 2:20 PM EDT Subjective Patient ID: Vinh Nickerson is a 39 y.o. male who presents for Hip Pain. Hip Pain The pain is present in the right hip. The quality of the pain is described as aching. The pain is at a severity of 7/10. The pain is moderate. The pain has been Constant since onset. Associated symptoms include an inability to bear weight. The symptoms are aggravated by movement and weight bearing.He has tried NSAIDs and heat for the symptoms. Review of Systems Constitutional: Negative. Respiratory: Negative. Cardiovascular: Negative. Gastrointestinal: Negative. Genitourinary: Negative. Objective Physical Exam Constitutional: Appearance: Normal appearance. Cardiovascular: Rate and Rhythm: Normal rate and regular rhythm. Pulmonary: Effort: Pulmonary effort is normal. Breath sounds: Normal breath sounds. Neurological: General: No focal deficit present. Mental Status: He is alert. Psychiatric: Mood and Affect: Mood normal. Behavior: Behavior normal. Assessment/Plan Diagnoses and all orders for this visit: Pain of right hip Comments: With Sciatica Started On short course of prednisone for 5 days Referred to PT Orders: - Referral to Physical Therapy; Future Other orders - predniSONE (Deltasone) 20 MG tablet; Take 1 tablet (20 mg) by mouth Once per day for 5 days. - cyclobenzaprine (Flexeril) 10 MG tablet; Take 1 tablet (10 mg) by mouth at bedtime for 10 days. documented in this encounter Miscellaneous Notes * Addendum Note - April Fung MD - 01/11/2025 2:20 PM EDTAddended by: APRIL FUNG on: 01/11/2025 02:59 PM Modules accepted: Orders documented in this encounter Plan of Treatment Upcoming Encounters Date Type Department Care Team (Late st Contact Info) Description 03/15/2025 4:00 PM EDT Office Visit [facility] [address] [place] [address] Jose J Schaefer MD [address] [place] [address] Scheduled Referrals Name Type Priority Associated Diagnoses Orde r Schedule Referral to Physical Therapy Outpatient Referral Routine Pain of right hip Expected: 01/11/2025 (Approximate), Expires: 01/11/2026 documented as of this encounter Procedures Procedure Name Priority Date/Time Associated Diagnosis Comments XR SHOULDER 2+ VIEWS LEFT Routine 01/12/2025 9:17 AM EDT Chronic left shoulder pain documented in this encounter Results * XR Shoulder 2+ Views Left (01/12/2025 9:17 AM EDT) Anatomical Region Laterality Modality Upper Extremities, Shoulder Left Radi ographic Imaging 01/12/2025 9:17 AM EDT Narrative 01/12/2025 9:46 AM EDT ? [facility] ?[address] ?[place] [address] ?XRay Report ? Signed ? Patient: Vinh Morales ?MR#: M ?? [id number] ? : 1985 ?Acct:[id number] ? Age/Sex: 39 / M ?ADM Date: 01/12/25 ? Loc: HO.XRAY ? Attending Dr: April Fung MD ? Ordering Physician: April Fung MD ?? Date of Service: 01/12/25 ?? Procedure(s): XR shoulder LT min 2V ?? Accession Number(s): [id number] ? cc: Jose J Schaefer MD; April Fung MD ? EXAMINATION: ??XR SHOULDER 2 OR MORE VIEWS LEFT ? HISTORY: pain ? COMPARISON: There are no prior studies available for comparison. ? FINDINGS: ? Four views of the shoulder are submitted. ??Osseous mineralization is ?? normal. ??There is no fracture or dislocation. ??The glenohumeral and ?? acromioclavicular joint spaces are preserved. ??The soft tissues are ?? unremarkable. ? XR/XR shoulder LT min 2V ?? IMPRESSION: ? Unremarkable examination of the left shoulder. ? Electronically signed by: ??Alok Moraes MD ??01/12/2025 09:43 AM EDT ?? RP ? Dictated By: ?Alok Moraes MD ? Signed By: ?<Electronically signed by Alok Moraes MD in OV> ?01/12/25 0943 ? DD/ 0917 ? TD/TT: 01/12/25 0929 ? Product Picker: ? Procedure Note Santos, Image - 01/12/[address] [address] XRay Report Signed Patient: Vinh MoralesMR#: M [id number] : 1985Acct:[id number] Age/Sex: 39 / MADM Date: 01/12/25 Loc: HO.XRAY Attending Dr: April Fung MD Ordering Physician: April Fung MD Date of Service: 01/12/25 Procedure(s): XR shoulder LT min 2V Accession Number(s): [id number] cc: Jose J Schaefer MD; April Fung MD EXAMINATION: XR SHOULDER 2 OR MORE VIEWS LEFT HISTORY: pain COMPARISON: There are no prior studies available for comparison. FINDINGS: Four views of the shoulder are submitted. Osseous mineralization is normal. There is no fracture or dislocation. The glenohumeral and acromioclavicular joint spaces are preserved. The soft tissues are unremarkable. XR/XR shoulder LT min 2V IMPRESSION: Unremarkable examination of the left shoulder. Electronically signed by: Alok Moraes MD 01/12/2025 09:43 AM EDT Dictated By: Alok Moraes MD Signed By: <Electronically signed by Alok Moraes MD in OV> 01/12/2543 DD/ TD/TT: 01/12/25928 Product Picker: April Fung MD IMG XR PROCEDURES Final Result documented in this encounter Visit Diagnoses Diagnosis Pain of right hip- Primary Chronic left shoulder pain Pain in joint, shoulder region documented in this encounter Care Teams First Line Production Supervisor Relationship Specialty Start Date End Date Jose J Schaefer MD [address] [place] [phone] PCP - General Internal Medicine 06/08/24 documented as of this encounter
== END 2025-01-12 09:12 | disposition home or self-care (01) ==
LOC: HO.XRAY 09:11
PROVIDERS: PCP Internal Medicine; Visit Provider Student in an Organized Health Care Education/Training Program
DX: M25.512 Pain in left shoulder (principal); G89.29 Other chronic pain
CPT/HCPCS: 73030

== ENCOUNTER → 2025-01-12 09:17 | Outpatient (BNV) | payer SELFPAY | PROVIDERS: PCP Internal Medicine; Visit Provider Radiology Diagnostic Radiology | DX: M25.512 Pain in left shoulder (principal) | CPT/HCPCS: 73030 ==

== ENCOUNTER 2025-02-07 16:54 | Outpatient (REF) | payer SELFPAY ==
--- OUTSIDE RECORDS SUMMARY | 2025-02-07 17:17 | XMS_ITS | Clinical Summary ---
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 nicotine (Nicoderm CQ) 21 MG/24HR patchIndicatio ns:Tobacco use disorder Place 1 patch on the skin 1 (one) time each day at the same time. 30 patch 3 08/15/20 24 Active nicotine polacrilex (Nicorette) 4 MG gumIndications :Tobacco use disorder CHEW 1 PIECE OF GUM EVERY 2 HOURS IF NEEDED FOR SMOKING CESSATION 200 each 2 10/25/19 25 Active cyclobenzaprin e (Flexeril) 10 MG tablet Take 1 tablet (10 mg) by mouth at bedtime for 10 days. 10 tablet 01/12/20 25 Active naproxen (Naprosyn) 500 MG tablet Take 1 tablet (500 mg) by mouth 2 times daily. 60 tablet 01/12/20 25 025 Active Omeprazole 20 MG tablet delayed-releas e Take 1 tablet (20 mg) by mouth Once per day. 90 tablet 01/26/20 25 Active naproxen (Naprosyn) 500 MG tablet Take 1 tablet (500 mg) by mouth 2 times daily. 60 tablet 1 01/26/20 25 025 Active propranolol (Inderal) 10 MG tabletIndicati ons:Anxiety Take 1 tablet (10 mg) by mouth if needed in the morning and at bedtime (Anxiety). 60 tablet 1 01/27/20 25 025 Active hydrOXYzine HCl (Atarax) 50 MG tabletIndicati ons:Anxiety Take 1 tablet (50 mg) by mouth if needed in the morning, at noon, and at bedtime for anxiety. 90 tablet 1 01/27/20 25 025 Active gabapentin (Neurontin) 100 MG capsuleIndicat ions:Anxiety Take 1 capsule (100 mg) by mouth 2 times daily. 60 capsule 1 01/27/20 25 025 Active QUEtiapine (SEROquel) 100 MG tabletIndicati ons:Bipolar 1 disorder (CMS/HCC) Take 2 tablets (200 mg) by mouth at bedtime. 60 tablet 1 01/27/20 25 025 Active divalproex (Depakote ER) 500 MG 24 hr tabletIndicati ons:Bipolar 1 disorder (CMS/HCC) Take 1 tablet by mouth in the morning and 2 tablets at bedtime. Do not crush, chew, or split. 90 tablet 1 01/27/20 25 Active escitalopram (Lexapro) 10 MG tablet Take 1 tablet (10 mg) by mouth Once per day. 30 tablet 2 07/05/20 24 025 Discontinued(Th erapy completed) clonazePAM (KlonoPIN) 1 MG tablet Take 1 tablet (1 mg) by mouth 2 times daily. 60 tablet 08/15/20 025 Discontinued(No n-compliance) DULoxetine (Cymbalta) [address] capsule TAKE ONE CAPSULE TWICE DAILY, DO NOT BREAK, CRUSH, DISSOLVE OR CHEW 60 capsule 1 11/22/19 025 Discontinued(Th erapy completed) hydrOXYzine HCl (Atarax) 50 MG tabletIndicati ons:Anxiety Take 1 tablet (50 mg) by mouth if needed in the morning, at noon, and at bedtime for anxiety. 90 tablet 1 01/04/20 25 025 Discontinued(Re order (will not trigger notification to Pharmacy)) gabapentin (Neurontin) 100 MG capsuleIndicat ions:Anxiety Take 1 capsule (100 mg) by mouth 2 times daily. 60 capsule 1 01/04/20 25 025 Discontinued(Re order (will not trigger notification to Pharmacy)) QUEtiapine (SEROquel) 100 MG tabletIndicati ons:Bipolar 1 disorder (CMS/HCC) Take 2 tablets (200 mg) by mouth at bedtime. 60 tablet 1 01/04/20 25 025 Discontinued(Re order (will not trigger notification to Pharmacy)) divalproex (Depakote ER) 500 MG 24 hr tabletIndicati ons:Bipolar 1 disorder (CMS/HCC) Take 1 tablet by mouth in the morning and 2 tablets at bedtime. Do not crush, chew, or split. 90 tablet 1 01/04/20 025 Discontinued(Re order (will not trigger notification to Pharmacy)) meloxicam (Mobic) 15 MG tabletIndicati ons:Acute right-sided low back pain with bilateral sciatica Take 1 tablet (15 mg) by mouth Once per day. 30 tablet 1 01/06/20 25 025 Discontinued methocarbamol (Robaxin) 750 MG tabletIndicati ons:Acute right-sided low back pain with bilateral sciatica Take 1 tablet (750 mg) by mouth 4 times daily for 10 days. 40 tablet 01/06/20 25 025 Discontinued predniSONE (Deltasone) 20 MG tablet Take 1 tablet (20 mg) by mouth Once per day for 5 days. 5 tablet 01/12/20 025 Active Problems Problem Noted Date Diagnosed Date Gastroesophageal reflux disease without esophagi tis 01/25/2025 Assessment & Plan (01/25/2025 9:44 AM EDT): Lifestyle modifications discussed, will start on omeprazole, call back if not improving Benzodiazepine abuse 01/03/2025 Bipolar 1 disorder 11/29/2024 [...] BH/psych therapy locally, he refers has a [place], refers he will get prescription delivered from [place]??. I made clear with diplomatic interpreter/translator as help that the best option would be to be followed locally for his mental conditions, also I made clear that if he will receive services from a psychiatrist in [place] and he needs the prescription from me [...] organization. Date Type Department Care Team Description 02/07/2025 11:00 AM EDT Office Visit [facility] [address] [place] [phone] Nghia Velázquez MD Benzodiazepine abuse ([facility]) (Primary Dx); Chronic prescription benzodiazepine use 02/07/2025 Travel 02/06/2025 11:00 AM EDT Office Visit [facility] [address] [place] [address] Nikhil Ge 02/01/[address] [address] [place] [address] Travel 01/25/2025 9:15 AM EDT Office Visit [facility] [address] [place] [address] Jose J Schaefer MD Gastroesophageal reflux disease without esophagitis (Primary Dx) 01/25/2025 Travel 01/20/2025 Telephone [facility] [address] [place] [address] Jose J Schaefer MD 01/12/2025 Patient Outreach [facility] [address] [place] [address] Murphy Sauer RC Recovery Supports 01/11/2025 2:20 PM EDT Office Visit [facility] [address] [place] [address] Faviola Fung MD Pain of right hip (Primary Dx); Chronic left shoulder pain 01/11/2025 Travel 01/11/2025 Telephone [facility] [address] [place] [address] Tori Hardy [place] 01/10/2025 Telephone [facility] [address] [place] [address] Jose J Schaefer MD 01/05/2025 3:30 PM EDT Office Visit [facility] [address] [place] [address] Earl Pryor MD Acute right-sided low back pain with bilateral sciatica (Primary Dx) 01/05/2025 Travel 01/02/2025 8:00 AM EDT Office Visit [facility] [address] [place] [address] Jennifer Geanpreet 01/02/2025 Telephone [facility] [address] [place] [address] Jose J Schaefer MD Medication Question 12/28/2024 Telephone [facility] [address] [place] [address] Jose J Schaefer MD Walk-In 12/27/2024 11:00 AM EDT Office Visit [facility] [address] [place] [address] Luma Harmanpreet 12/27/2024 Orders Only [facility] [address] [place] [address] Jose J Schaefer MD On valproic acid therapy (Primary Dx) 12/05/2024 Telephone [facility] [address] [place] [address] Joise Rios, OD 11/20/2024 Refill [facility] [address] [place] [address] Jose J Schaefer MD from Last 3 Months Immunizations Immunization Administration Dates Next Due BCG 1985 DTaP [...] Sign Reading Time Taken Comments Blood Pressure 102/68 01/25/2025 9:18 AM EDT Pulse 88 01/25/2025 9:18 AM EDT Temperature 36.9 ??C (98.4 ??F) 01/25/2025 9:18 AM ED T Respiratory Rate 20 01/25/2025 9:18 AM EDT Oxygen Saturation 97% 01/05/2025 3:20 PM EDT Inhaled Oxygen Concentration - - Weight 85.7 kg (189 lb) 01/25/2025 9:18 AM EDT Height 175.3 cm (5' 9 ) 01/25/2025 9:18 AM EDT Body Mass Index 27.91 01/25/2025 9:18 AM EDT Plan of Treatment Upcoming Encounters Date Type Department Care Team (Late st Contact Info) Description 02/14/2025 10:30 AM EDT Office Visit [facility] [address] [place] [address] Nghia Velázquez MD [address] [place] [address] 02/14/2025 2:30 PM EDT Office Visit [facility] [address] [place] [address] Nikhil Ge [address] [place] [address] 03/14/2025 10:15 AM EDT Office Visit [facility] [address] [place] [address] Jose J Schaefer MD [address] [place] [phone] Health Maintenance Due Date Last Done Comments Dental Oral Exam 1985 Dental Prophylaxis 1985 Dental X-Ray: Bitewings 1985 Dental X-Ray: Full Mouth 1985 Disability Screening 1985 IPV Vaccines (3 of 3 - [...] 24 SDOH Screening 04/29/2025 04/29/2024 Tobacco Screening 02/06/2026 02/06/2025 Lipid Panel 04/29/2029 04/29/2024 Zoster Vaccines (1 [...] on patient's age to complete this topic Meningococcal B Vaccine Aged Out No l onger eligible based on patient's age to complete this topic RSV under 20 months Aged Out No longe r eligible based on patient's age to complete this topic Rotavirus Vaccines Aged Out No longer eligible based on patient's age to complete this topic Procedures Procedure Name Priority Date/Time Associated Diagnosis Comments POCT TRISTAN-14 URINE DRUG SCREEN Routine 02/07/2025 12:03 PM EDT Benzodiazepine abuse (CMS/HCC) CASE PRESENTATION, DETAILED AND EXTENSIVE TREATMENT PLANNING Routine 02/06/2025 11:00 AM EDT INTRAORAL - PERIAPICAL FIRST RADIOGRAPHIC IMAGE Routine 02/06/2025 11:00 AM EDT 8,9 LIMITED ORAL EVALUATION - PROBLEM FOCUSED Routine 02/06/2025 11:00 AM EDT XR SHOULDER 2+ VIEWS LEFT Routine 01/12/2025 9:17 AM EDT Chronic left shoulder pain XR LUMBAR SPINE 2-3 VIEWS Routine 01/11/2025 [...] Recently Relevant to Health Maintenance Results * POCT TRISTAN-14 Urine Drug Screen (02/07/2025 12:03 PM EDT) THC Negative Cocaine Screen, Urine Negative Opiate Screen, Urine Negative Methamphetamine Screen Urine Negative Amphetamine Screen, Urine Negative Benzodiazepines Screen, Urine Negative Barbiturate Screen, Urine Negative Methadone Screen, Urine Negative Buprenophine Screen, Urine Negative TCA, Urine Negative MDMA Urine Negative ng/mL Oxycodone Screen, Urine Negative Phencyclidine (PCP), Urine Negative Fentanyl, Urine Negative Urine Urine specimen obtained by clean catch procedure / Unknown 02/07/2025 12:03 PM EDT us Nghia Velázquez MD POINT OF CARE TEST ENTER/EDIT ORDERABLES Final Result * XR Shoulder 2+ Views Left (01/12/2025 9:17 AM EDT) Anatomical Region Laterality Modality Upper Extremities, Shoulder Left Radi ographic Imaging 01/12/2025 9:17 AM EDT Narrative 01/12/2025 9:46 AM EDT ? [facility] ?[address] ?[place] [address] ?XRay Report ? Signed ? Patient: Vinh Morales ?MR#: M ?? [id number] ? : 1985 ?Acct:[id number] ? Age/Sex: 39 / M ?ADM Date: 01/12/25 ? Loc: HO.XRAY ? Attending Dr: Faviola Fung MD ? Ordering Physician: Faviola Fung MD ?? Date of Service: 01/12/25 ?? Procedure(s): XR shoulder LT min 2V ?? Accession Number(s): [id number] ? cc: Jose J Schaefer MD; Faviola Fung MD ? EXAMINATION: ??XR SHOULDER 2 [...] ??Alok Moraes MD ??01/12/2025 09:43 AM EDT ? Dictated By: ?Alok Moraes MD ? Signed By: ?<Electronically signed by Alok Moraes MD in OV> ?01/12/25 0943 ? DD/ 6 ? TD/TT: 01/12/25928 ? Workday Consultant: ? Procedure Note Max Graham - 01/12/[address] [address] XRay Report Signed Patient: Vinh MoralesMR#: M [id number] : 1985Acct:[id number] Age/Sex: 39 / MADM Date: 01/12/25 Loc: HO.GOKUL Attending Dr: Faviola Fung MD Ordering Physician: Faviola Fung MD Date of Service: 01/12/25 Procedure(s): XR shoulder LT min 2V Accession Number(s): [id number] cc: Jose J Schaefer MD; Faviola Fung MD EXAMINATION: XR SHOULDER 2 OR [...] signed by Alok Moraes MD in OV> 01/12/25942 DD/ 6 TD/TT: 01/12/25928 Workday Consultant: us Faviola Fung MD IMG XR PROCEDURES Edited Result - Final * XR Lumbar Spine 2-3 Views (01/11/2025 9:03 AM EDT) Anatomical Region Laterality Modality Spine, L-spine Radiographic Malina ging 01/11/2025 9:03 AM EDT Narrative 01/11/2025 9:25 AM EDT ? [facility] ?[address] ?[place] [address] ?XRay Report ? Signed ? Patient: Vinh Morales ?MR#: M ?? [id number] ? : 1985 ?Acct:[id number] ? Age/Sex: 39 / M ?ADM Date: 01/11/25 ? Loc: HO.XRAY ? Attending Dr: Earl Pryor MD ? Ordering Physician: Earl Pryor MD ?? Date of Service: 01/11/25 ?? Procedure(s): XR lumbar spine 2-3V ?? Accession Number(s): [id number] ? cc: Earl Pryor MD ? EXAMINATION: [...] DD/ 0903 ? TD/TT: 01/11/25 0921 ? Workday Consultant: ? Procedure Note Max Graham - 01/11/[address] [place] [address] XRay Report Signed Patient: Vinh MoralesMR#: M [id number] : 1985Acct:[id number] Age/Sex: 39 / MADM Date: 01/11/25 Loc: HO.XRAY Attending Dr: Earl Pryor MD Ordering Physician: Earl Pryor MD Date of Service: 01/11/25 Procedure(s): XR lumbar spine 2-3V Accession Number(s): [id number] cc: Earl Pryor MD EXAMINATION: XR LUMBOSACRAL SPINE CLINICAL INFORMATION: back pain COMPARISON: None available. TECHNIQUE: Three views of the lumbosacral spine. FINDINGS: No acute cortical disruption or malalignment. No lytic or thick lesions. XR/XR lumbar spine 2-3V IMPRESSION: No acute fracture or listhesis. Negative x-ray. Electronically signed by: Arcadio Arenas MD 01/11/2025 09:23 AM EDT Dictated By: Arcadio Mancera MD Signed By: <Electronically signed by Arcadio Hernandez MDin OV> 01/11/25922 DD/ 2 TD/TT: 01/11/25920 Workday Consultant: us Earl Pryor MD IMG XR PROCEDURES Final Res ult * Valproic Acid Total (12/28/2024 9:04 AM EDT) Valproate 63.4 50.0 - 100.0 mcg/mL [facility] Blood Venous blood specimen / Unknown 12/28/2024 9:04 AM EDT 12/28/2024 2:06 PM EDT us Jose J Ac MD LAB BLOOD ORDERABL ES Final Result [facility] [address] [place] [phone] * Hepatitis A,B,C Profile (04/29/2024 12:27 PM EDT) Hepatitis A IgM Nonreactive Nonreactive [facility] Comment:IgM antibodies to PHAM V not detected; does not exclude earlyacute or recovered HAV infection. ~Hepatitis B Surface Antibody REACTIVE Nonreactive [facility] Comment:REACTIVE: > 11.99 mI U/mL Hepatitis B Core Antibody Nonreactive Nonreactive [facility] Hepatitis C Antibody Nonreactive Nonreactive [facility] Comment:Antibodies to HCV no t detected; does not exclude early acuteHCV infection. Hepatitis B Surface Ag Negative Negative [facility] Blood Venous blood specimen / Unknown 04/29/2024 12:27 PM EDT 04/29/2024 1:15 PM EDT [facility] LAB BLOOD ORDERABLES Final Re sult [facility] [address] [place] [phone] * HIV-1/2 Antigen and Antibodies, Fourth Generation, with Reflexes (04/29/2024 12:27 PM EDT) Pathologist [facility] HIV AB/AG Nonreactive Nonreactive [facility] Comment:HIV-1 p24 Ag and/or HIV-1/HIV-2 Ab not detected.A test result that is nonreactive does not exclude thepossibility of exposure to or infection with HIV-1 and/orHIV-2. Nonreactive results in this assay for individualswith prior exposure to HIV-1 and/or HIV-2 may be due toantigen and antibody levels that are below the limit ofdetection of this assay.The popAD HIV Ag/Ab Combo assay result andsupplemental assay results should be interpreted inconjunction with the patient's clinical presentation,history and other laboratory results. If the results areinconsistent with clinical evidence, additional testing issuggested to confirm the result. Blood Venous blood specimen / Unknown 04/29/2024 12:27 PM EDT 04/29/2024 1:15 PM EDT [facility] LAB BLOOD ORDERABLES Final Re sult Performing Organization Address [facility] Co de Phone Number [facility] [address] [place] [phone] * (ABNORMAL) Lipid Panel, Standard (04/29/2024 12:27 PM EDT) Triglycerides 95 <150 mg/dL [facility] Comment:Desirable Triglyceri de: less than 150 mg/dLBorderline High Triglyceride 150-199 mg/dLHigh Triglyceride: 200-499 mg/dLVery High Triglyceride: greater than or equal to 5OO mg/dL Cholesterol 190 <200 mg/dL [facility] Comment:Desirable Cholestero l: less than 200 mg/dLBorderline High Cholesterol: 200-239 mg/dLHigh Cholesterol: greater than 239 mg/dL LDL Cholesterol Calculated 128(H) <100 mg/dL [facility] Comment:Desirable LDL: less than 100 mg/dLNear Optimal/Above Optimal LDL: 110- 129 mg/dLBorderline High LDL: 130-159 mg/dLHigh LDL: 160-189 mg/dLVery High LDL: greater than or equal to 190 mg/dL HDL Cholesterol 43 >40 mg/dL [facility] Comment:Desirable HDL: great er than 40 mg/dL Note: This HDL assay may give artificially low results in patients with liver disease. Blood Venous blood specimen / Unknown 04/29/2024 12:27 PM EDT 04/29/2024 1:15 PM EDT [facility] LAB BLOOD ORDERABLES Final Re sult Performing Organization Address City/[facility]/ZIP Co de Phone Number [facility] [address] [place] [phone] from Last 3 Months or Most Recently Relevant to Health Maintenance [place] [facility] [facility] ADULT DENTAL - HSN FULL (MEDICAID) Care Teams Submarine Cable Equipment Technician Relationship Specialty Start Date End Date Jose J Schaefer MD [address] [place] [phone] PCP - General Internal Medicine 06/08/24
[2025-02-13 11:22] LABS: Aminoclonazepam, GCMS Urine 85
[2025-02-13 11:23] LABS: Alphahydroxymidazolam,GCMS Ur NEGATIVE; Alphahydroxytriazolam, GCMS Ur NEGATIVE; Alprazolam, GCMS Urine NEGATIVE; Flurazepam Metabolite,GCMS Ur NEGATIVE; Lorazepam GCMS Urine NEGATIVE; Nordiazepam, GCMS Urine NEGATIVE; Oxazepam, GCMS Urine NEGATIVE; Temazepam, GCMS Urine NEGATIVE
== END 2025-02-07 16:55 | disposition home or self-care (01) ==
LOC: HO.HHCLNP 16:54
PROVIDERS: Visit Provider Emergency Medicine
DX: F13.10 Sedative, hypnotic or anxiolytic abuse, uncomplicated (principal)
CPT/HCPCS: 80346

== ENCOUNTER 2025-02-27 08:31 | Outpatient (REF) | payer MEDICAID, OTHER, SELFPAY | END 2025-02-27 08:32 | disposition home or self-care (01) | LOC: HO.CHCLDS 08:31 | PROVIDERS: Visit Provider Registered Nurse | DX: R14.0 Abdominal distension (gaseous) (principal) | CPT/HCPCS: 87338 ==

== ENCOUNTER 2025-03-14 11:08 | Outpatient (REF) | payer MEDICAID, OTHER, SELFPAY ==
--- OUTSIDE RECORDS SUMMARY | 2025-03-14 12:13 | XMS_ITS | Clinical Summary ---
Author Organization [employer] Address [address] [facility] [place] [address] Care Team Providers Care Lockstitch Lining Maker Name Role Phone Jose J Schaefer MD [...] CESSATION 200 each 2 10/25/19 25 Active naproxen (Naprosyn) 500 MG tabletIndicati ons:Chronic right-sided low back pain, unspecified whether sciatica present Take 1 tablet by oral route twice daily as needed for moderate pain 30 tablet 1 02/23/20 25 Active hydrOXYzine HCl (Atarax) 50 MG tabletIndicati ons:Anxiety Take 1 tablet (50 mg) by mouth if needed in the morning, at noon, and at bedtime for anxiety. 90 tablet 1 03/01/20 25 025 Active propranolol (Inderal) 10 MG tabletIndicati ons:Anxiety Take 1 tablet (10 mg) by mouth if needed in the morning and at bedtime (Anxiety). 60 tablet 1 03/01/20 25 04/30/ 025 Active QUEtiapine (SEROquel) 100 MG tabletIndicati ons:Bipolar 1 disorder (CMS/HCC) Take 2 tablets (200 mg) by mouth at bedtime. 60 tablet 1 03/01/20 25 08/24/2 025 Active divalproex (Depakote ER) 500 MG 24 hr tabletIndicati ons:Bipolar 1 disorder (CMS/HCC) Take 2 tablet by mouth in the morning and 2 tablets at bedtime. Do not crush, chew, or split. 120 tablet 03/01/20 Active gabapentin (Neurontin) 100 MG capsuleIndicat ions:Anxiety Take 1 capsule (100 mg) by mouth 2 times daily. 60 capsule 03/01/20 25 025 Active Omeprazole 20 MG tablet delayed-releas e Take 1 tablet (20 mg) by mouth Once per day. 90 tablet 03/01/20 Active esomeprazole (NexIUM) [address] capsule Take 1 capsule (20 mg) by mouth before breakfast. Do not open capsule. 30 capsule 03/02/20 Active sucralfate (Carafate) 1 g tablet Take 1 tablet (1 g) by mouth before breakfast and before evening meal. 60 tablet 03/02/20 026 Active cyclobenzaprin e (Flexeril) 10 MG tablet Take 1 tablet (10 mg) by mouth at bedtime for 10 days. 10 tablet 01/12/20 25 025 Discontinued(Re order (will not trigger notification to Pharmacy)) Omeprazole 20 MG tablet delayed-releas e Take 1 tablet (20 mg) by mouth Once per day. 90 tablet 01/26/20 25 025 Discontinued(Re order (will not trigger notification to Pharmacy)) naproxen (Naprosyn) 500 MG tablet Take 1 tablet (500 mg) by mouth 2 times daily. 60 tablet 01/26/20 25 025 Discontinued propranolol (Inderal) 10 MG tabletIndicati ons:Anxiety Take 1 tablet (10 mg) by mouth if needed in the morning and at bedtime (Anxiety). 60 tablet 01/27/20 25 025 Discontinued(Re order (will not trigger notification to Pharmacy)) hydrOXYzine HCl (Atarax) 50 MG tabletIndicati ons:Anxiety Take 1 tablet (50 mg) by mouth if needed in the morning, at noon, and at bedtime for anxiety. 90 tablet 01/27/20 25 025 Discontinued(Re order (will not trigger notification to Pharmacy)) gabapentin (Neurontin) 100 MG capsuleIndicat ions:Anxiety Take 1 capsule (100 mg) by mouth 2 times daily. 60 capsule 1 01/27/20 25 025 Discontinued(Re order (will not trigger notification to Pharmacy)) QUEtiapine (SEROquel) 100 MG tabletIndicati ons:Bipolar 1 disorder (CMS/HCC) Take 2 tablets (200 mg) by mouth at bedtime. 60 tablet 1 01/27/20 25 025 Discontinued(Re order (will not trigger notification to Pharmacy)) divalproex (Depakote ER) 500 MG 24 hr tabletIndicati ons:Bipolar 1 disorder (CMS/HCC) Take 1 tablet by mouth in the morning and 2 tablets at bedtime. Do not crush, chew, or split. 90 tablet 1 01/27/20 25 025 Discontinued(Re order (will not trigger notification to Pharmacy)) famotidine (Pepcid) 20 MG tablet Take 1 tablet (20 mg) by mouth 2 times daily. 60 tablet 2 02/14/20 25 025 Discontinued predniSONE (Deltasone) 20 MG tablet 2 tabs po daily for 5 days 10 tablet 02/14/20 25 025 Discontinued cyclobenzaprin e (Flexeril) 10 MG tablet Take 1 tablet (10 mg) by mouth at bedtime for 10 days. 10 tablet 02/14/20 25 025 Discontinued cyclobenzaprin e (Flexeril) 5 MG tabletIndicati ons:Chronic right-sided low back pain, unspecified whether sciatica present Take 1 tablet (5 mg) by mouth if needed in the morning, at noon, and at bedtime for muscle spasms for up to 10 days. 30 tablet 02/23/20 25 025 Discontinued simethicone (Mylicon) 80 MG chewable tabletIndicati ons:Bloating Chew 1 tablet (80 mg) every 6 (six) hours if needed for flatulence for up to 10 days. 30 tablet 02/23/20 25 025 Discontinued divalproex (Depakote ER) 500 MG 24 hr tabletIndicati ons:Bipolar 1 disorder (CMS/HCC) Take 1 tablet by mouth in the morning and 2 tablets at bedtime. Do not crush, chew, or split. 90 tablet 1 03/01/20 25 025 Discontinued Hospital, Clinic, or Other Facility Administered Medication Ordered Dose Route Frequency Start Date End Date Status ketorolac (Toradol) injection 30 mgIndications:Chronic right-sided low back pain, unspecified whether sciatica present 30 mg IM Once 02/13/2025 02/13/2025 Ended Active Problems Problem Noted Date Diagnosed Date Epigastric pain 03/01/2025 Assessment & Plan (03/01/2025 9:13 AM EDT): Will refer to gastroenterology, continue PPI, lifestyle modifications reviewed Gastroesophageal reflux disease without esophagi tis 01/25/2025 [...] BH/psych therapy locally, he refers has a [place] psychiatrist, refers he will get prescription delivered from [place]??. I made clear with instrument assembly supervisor as help that the best option would be to be followed locally for his mental conditions, also I made clear that if he will receive services from a psychiatrist in [place] and he needs the prescription from me [...] organization. Date Type Department Care Team Description 03/14/2025 10:15 AM EDT Office Visit [facility] [address] [place] [address] Jose J Schaefer MD 03/14/2025 Travel 03/13/2025 Telephone [facility] [address] [place] [address] Jose J Schaefer MD 03/06/2025 Results Follow-Up [facility] [address] [place] [address] Ava Ackerman FNP Helicobacter pylori Antigen, EIA, Stool 03/02/2025 9:20 AM EDT Office Visit [facility] [address] [place] [phone] Faviola Fung MD Gastroesophageal reflux disease without esophagitis (Primary Dx) 03/02/2025 Travel 03/01/2025 8:30 AM EDT Telemedicine [facility] [address] [place] [address] Jose J Schaefer MD Epigastric pain (Primary Dx); Bipolar 1 disorder ([facility]); Anxiety; Chronic midline low back pain without sciatica 03/01/2025 Travel 02/27/2025 Telephone [facility] [address] [place] [phone] Jose J Schaefer MD Med Refill 02/22/2025 9:00 AM EDT Office Visit [facility] [address] [place] [phone] Caroline Ulloa FNP Chronic right-sided low back pain, unspecified whether sciatica present (Primary Dx); RUQ pain; Bloating 02/22/2025 Travel 02/21/2025 Telephone [facility] [address] [place] [address] Jose J Schaefer MD traige 02/14/2025 2:30 PM EDT Office Visit [facility] [address] [place] [address] Dionisio Gepreet 02/13/2025 9:00 AM EDT Office Visit [facility] [address] [place] [address] Ava Ackerman, [employer] Chronic right-sided low back pain, unspecified whether sciatica present (Primary Dx); Abdominal bloating 02/13/2025 Travel 02/07/2025 11:00 AM EDT Office Visit [facility] [address] [place] [phone] Nghia Velázquez MD Benzodiazepine abuse ([facility]) (Primary Dx); Chronic prescription benzodiazepine use 02/07/2025 Travel 02/06/2025 11:00 AM EDT Office Visit [facility] [address] [place] [address] Nikhil Ge 02/01/[address] [address] [place] [address] Travel 01/25/2025 9:15 AM EDT Office Visit [facility] [address] [place] [address] Jose J Schaefer MD Gastroesophageal reflux disease without esophagitis (Primary Dx) 01/25/2025 Travel 01/20/2025 Telephone [facility] [address] [place] [address] Jose J Schaefer MD 01/12/2025 Patient Outreach [address] [address] [facility] 01/11/2025 2:20 PM EDT Office Visit [facility] [address] [place] [address] Faviola Fung MD Pain of right hip (Primary Dx); Chronic left shoulder pain 01/11/2025 Travel 01/11/2025 Telephone [facility] [address] [place] [address] Tori Hardy [place] 01/10/2025 Telephone [facility] [address] [place] [address] Jose J Schaefer MD 01/05/2025 3:30 PM EDT Office Visit [facility] [address] [place] [address] Earl Pryor MD Acute right-sided low back pain with bilateral sciatica (Primary Dx) 01/05/2025 Travel 01/02/2025 8:00 AM EDT Office Visit [facility] [address] [place] [address] Nikhil Ge 01/02/2025 Telephone [facility] [address] [place] [address] Jose J Schaefer MD Medication Question 12/28/2024 Telephone [facility] [address] [place] [address] Jose J Schaefer MD Walk-In 12/27/2024 11:00 AM EDT Office Visit [facility] [address] [place] [address] Nikhil Ge 12/27/2024 Orders Only [facility] [address] [place] [address] Jose J Schaefer MD On valproic acid therapy (Primary Dx) from Last 3 Months Immunizations Immunization Administration [...] Sign Reading Time Taken Comments Blood Pressure 112/84 03/14/2025 10:14 AM EDT Pulse 68 03/14/2025 10:14 AM EDT Temperature 37.1 C (98.7 F) 03/14/2025 10:14 AM EDT Respiratory Rate 16 03/14/2025 10:14 AM EDT Oxygen Saturation 98% 03/02/2025 9:22 AM EDT Inhaled Oxygen Concentration - - Weight 89.4 kg (197 lb) 03/14/2025 10:14 AM EDT Height 175.3 cm (5' 9 ) 03/14/2025 10:14 AM EDT Body Mass Index 29.09 03/14/2025 10:14 AM EDT Plan of Treatment Health Maintenance Due Date Last Done Comments Dental Oral Exam 1985 Dental Prophylaxis 1985 Dental X-Ray: Bitewings 1985 Dental X-Ray: Full Mouth 1985 Disability Screening 1985 IPV Vaccines (3 of 3 - 4-dose series) 1989 04/22/1986, 1985, 1985 Alcohol/Substance Use Screening 1997 Family Planning (PISQ) 02/01/2000 HPV Vaccines (1 - Male 3-dose series) 02/01/2000 Pneumococcal Vaccine: Pediatrics (0 to 5 Years) and At-Risk Patients (6 to 49) Years (1 of 2 - PCV) 02/01/2004 DTaP/Tdap/Td Vaccines (5 - Tdap) 11/19/2023 11/18/2023, 02/07/2008, 05/05/1986, Additional history exists Depression Screening 04/13/2025 04/13/2024, 04/13/20 24 SDOH Screening 04/29/2025 04/29/2024 Influenza Vaccine (#1) 2025 06/02/2024 Tobacco Screening 02/22/2026 02/22/2025 Lipid Panel 04/29/2029 04/29/2024 Zoster Vaccines (1 [...] Completed 06/02/2024, 12/17/2023, 11/14/2023, Additional history exists HIB Vaccines Aged Out No longer eligi [...] Procedure Name Priority Date/Time Associated Diagnosis Comments AMB REFERRAL TO ORTHOPAEDIC SURGERY Routine 03/01/2025 Chronic midline low back pain without sciatica HELICOBACTER PYLORI AG, EIA, STOOL Routine 02/27/2025 8:14 AM EDT Abdominal bloating CASE PRESENTATION, DETAILED AND EXTENSIVE TREATMENT PLANNING Routine 02/14/2025 2:30 PM EDT 8 MIDFL RESIN-BASED COMPOSITE - 4 OR MORE SURFACES (ANTERIOR) Routine 02/14/2025 2:30 PM EDT DRUG MONITORING, BENZODIAZEPINES, QUANTITATIVE, URINE Routine 02/07/2025 12:04 PM EDT Benzodiazepine abuse (CMS/HCC) POCT TRISTAN-14 URINE DRUG SCREEN Routine 02/07/2025 [...] Recently Relevant to Health Maintenance Results * Referral to Orthopaedic Surgery (03/01/2025) Jose J Ac MD OUTPATIENT REFERRA L ORDERABLES Final Result * Helicobacter pylori??Antigen, EIA, Stool (02/27/2025 8:14 AM EDT) H pylori Ag Stool SEE NOTE [facility] Comment:HELICOBACTER PYLORI AG, EIA, STOOL Micro Number: [id number] Test Status: Final Specimen Source: Stool Specimen Quality: Adequate H.pylori Ag: Not Detected Antimicrobials, proton pump inhibitors, and bismuth preparations inhibit H. pylori and ingestion up to two weeks prior to testing may cause false negative results. If clinically indicated the test should be repeated on a new specimen obtained two weeks after discontinuing treatment. Reference Range: Not DetectedTHIS TEST WAS PERFORMED AT:[facility] [place] [phone] CHIU MD Stool Rectal contents / Unknown 02/27/2025 8:14 AM EDT 02/27/2025 1:41 PM EDT Ava Ackerman [employer] LAB BODY FLUIDS AND STOOLS ORD ERABLES Final Result [facility] [address] [place] [address] [phone] * Drug Monitoring, Benzodiazepines, Quantitative, Urine (02/07/2025 12:04 PM EDT) Nordiazepam, GCMS Urine NEGATIVE [facility] Comment:REFERENCE RANGE: <50 ng/mL Oxazepam, GCMS Urine NEGATIVE [facility] Comment:REFERENCE RANGE: <50 ng/mL Lorazepam GCMS Urine NEGATIVE [facility] Comment:REFERENCE RANGE: <50 ng/mL Alprazolam, GCMS Urine NEGATIVE [facility] Comment:REFERENCE RANGE: <25 ng/mL Alphahydroxytriazolam , GCMS Ur NEGATIVE [facility] Comment:REFERENCE RANGE: <50 ng/mL Temazepam, GCMS Urine NEGATIVE [facility] Comment:REFERENCE RANGE: <50 ng/mL Alphahydroxymidazolam ,GCMS Ur NEGATIVE [facility] Comment:REFERENCE RANGE: <50 ng/mL Aminoclonazepam, GCMS Urine 85 [facility] Comment:REFERENCE RANGE: <25 ng/mL Flurazepam Metabolite,GCMS Ur NEGATIVE [facility] Comment:REFERENCE RANGE: <50 ng/mL Benzodiazepines Comments SEE NOTE [facility] Comment:This drug testing is for medical treatment only. Analysiswas performed as non-forensic testing and these resultsshould be used only by healthcare providers to renderdiagnosis or treatment, or to monitor progress of medicalconditions.Benzodiazepines Notes:Aminoclonazepam detected is consistent with the use of thedrug Clonazepam.LDT Notes:Confirmation tests were developed and their analyticalperformance characteristics have been determined by [facility]. It has not been cleared or approved by the FDA.This assay has been validated pursuant to the CLIAregulations and is used for clinical purposes.Healthcare Providers needing Interpretation assistance,please contact us at [phone] ( ) M-F,8am to 10pm ESTTHIS TEST PERFORMED AT:[facility] [address] [phone] DIRECTOR: ANNA CHIU MD Urine 02/07/2025 12:0 4 PM EDT 02/07/2025 4:55 PM EDT Nghia Velázquez MD LAB URINE ORDERABLES Final Res ult [facility] [address] [place] [phone] * POCT TRISTAN-14 Urine Drug Screen (02/07/2025 [...] procedure / Unknown 02/07/2025 12:03 PM EDT Nghia Velázquez MD POINT OF CARE TEST ENTER/EDIT ORDERABLES Final Result * XR Shoulder 2+ Views Left (01/12/2025 9:17 AM EDT) Anatomical Region Laterality Modality Upper Extremities, Shoulder Left Radi ographic Imaging 01/12/2025 9:17 AM EDT Narrative 01/12/2025 9:46 AM EDT [address] [address] XRay Report Signed Patient: Vinh Morales MR#: [id number] : 1985 Acct:[id number] Age/Sex: 39 / M ADM Date: 01/12/25 Loc: HOJaviXRAY Attending Dr: Faviola Fung MD Ordering Physician: Faviola Fung MD Date of Service: 01/12/25 Procedure(s): XR shoulder LT min 2V Accession Number(s): [id number] cc: Jose J Schaefer MD; Faviola Fung [...] signed by Alok Moraes MD in OV> 01/12/25 0943 DD/ 6 TD/TT: 01/12/25928 Backend Developer: Procedure Note Donalbaniater, Image - 01/12/2025 [place] [address] XRay Report Signed Patient: Vinh MoralesMR#: Lacy [id number] : 1985Acct:[id number] Age/Sex: 39 / MADM Date: 01/12/25 Loc: HOJaviXRTARYN Attending Dr: Faviola Fung MD Ordering Physician: Faviola Fung MD Date of Service: 01/12/25 Procedure(s): XR shoulder LT min 2V Accession Number(s): [id number] cc: Jose J Schaefer MD; Faviola Fung [...] Alok Moraes MD 01/12/2025 09:43 AM EDT RP Dictated By: Alok Moreas MD Signed By: <Electronically signed by Alok Moraes MD in OV> 01/12/2543 DD/ 6 TD/TT: 01/12/25928 Backend Developer: Faviola Fung MD IMG XR PROCEDURES Edited Result - Final * XR Lumbar Spine 2-3 Views (01/11/2025 9:03 AM EDT) Anatomical Region Laterality Modality Spine, L-spine Radiographic Malina ging 01/11/2025 9:03 AM EDT Narrative 01/11/2025 9:25 AM EDT [place] [address] XRay Report Signed Patient: Vinh Morales MR#: [id number] : 1985 Acct:[id number] Age/Sex: 39 / M ADM Date: 01/11/25 Loc: HO.XRAY Attending Dr: Earl Pryor MD Ordering Physician: Earl Pryor MD Date of Service: 01/11/25 Procedure(s): XR lumbar spine 2-3V Accession Number(s): [id number] cc: Earl Pryor MD EXAMINATION: XR LUMBOSACRAL [...] Signed By: <Electronically signed by Arcadio Hernandez MD in OV> 01/11/25922 DD/ 2 TD/TT: 01/11/25920 Backend Developer: Procedure Note Donotuseinterpreter, Image - 01/11/[address] [address] XRay Report Signed Patient: Vinh MoralesMR#: M [id number] : 1985Acct:[id number] Age/Sex: 39 / MADM Date: 01/11/25 Loc: HO.XRAY Attending Dr: Earl Pryor MD Ordering Physician: Earl Pryor MD Date of Service: 01/11/25 Procedure(s): XR lumbar spine 2-3V Accession Number(s): [id number] cc: Earl Pryor MD EXAMINATION: XR LUMBOSACRAL [...] MDin OV> 01/11/25922 DD/ 2 TD/TT: 01/11/25920 Backend Developer: us Earl Pryor MD IMG XR PROCEDURES Final Res ult * Valproic Acid Total (12/28/2024 9:04 AM EDT) Valproate 63.4 50.0 - 100.0 mcg/mL [facility] Blood Venous blood specimen / Unknown 12/28/2024 9:04 AM EDT 12/28/2024 2:06 PM EDT Jose J Ac MD LAB BLOOD ORDERABL ES Final Result Performing Organization Address [facility] Co de Phone Number [facility] [address] [place] [phone] * Hepatitis A,B,C Profile (04/29/2024 12:27 PM EDT) Hepatitis A IgM Nonreactive Nonreactive [facility] Comment:IgM antibodies to PHAM V not detected; does not exclude earlyacute or recovered HAV infection. ~Hepatitis B Surface Antibody REACTIVE Nonreactive [facility] Comment:REACTIVE: > 11.99 mI U/mL Hepatitis B Core Antibody Nonreactive Nonreactive [facility] Hepatitis C Antibody Nonreactive Nonreactive [facility] Comment:Antibodies to HCV no t detected; does not exclude early acuteHCV infection. Hepatitis B Surface Ag Negative Negative [facility] Blood Venous blood specimen / Unknown 04/29/2024 12:27 PM EDT 04/29/2024 1:15 PM EDT [facility] LAB BLOOD ORDERABLES Final Re sult Performing Organization Address [facility] Co de Phone Number [facility] [address] [place] [phone] * HIV-1/2 Antigen and Antibodies, Fourth Generation, with Reflexes (04/29/2024 12:27 PM EDT) HIV AB/AG Nonreactive Nonreactive [facility] Comment:HIV-1 p24 Ag and/or HIV-1/HIV-2 Ab not detected.A test result that is nonreactive does not exclude thepossibility of exposure to or infection with HIV-1 and/orHIV-2. Nonreactive results in this assay for individualswith prior exposure to HIV-1 and/or HIV-2 may be due toantigen and antibody levels that are below the limit ofdetection of this assay.The viVood HIV Ag/Ab Combo assay result andsupplemental assay results should be interpreted inconjunction with the patient's clinical presentation,history and other laboratory results. If the results areinconsistent with clinical evidence, additional testing issuggested to confirm the result. Blood Venous blood specimen / Unknown 04/29/2024 12:27 PM EDT 04/29/2024 1:15 PM EDT [facility] BLOOD ORDERABLES Final Re sult [facility] [address] [place] [phone] * (ABNORMAL) Lipid Panel, Standard (04/29/2024 12:27 PM EDT) Triglycerides 95 <150 mg/dL [facility] Comment:Desirable Triglyceri de: less than 150 mg/dLBorderline High Triglyceride 150-199 mg/dLHigh Triglyceride: 200-499 mg/dLVery High Triglyceride: greater than or equal to 5OO mg/dL Cholesterol 190 <200 mg/dL [facility] Comment:Desirable Cholestero l: less than 200 mg/dLBorderline High Cholesterol: 200-239 mg/dLHigh Cholesterol: greater than 239 mg/dL LDL Cholesterol Calculated 128(H) <100 mg/dL [facility] Comment:Desirable LDL: less than 100 mg/dLNear Optimal/Above Optimal LDL: 110- 129 mg/dLBorderline High LDL: 130-159 mg/dLHigh LDL: 160-189 mg/dLVery High LDL: greater than or equal to 190 mg/dL HDL Cholesterol 43 >40 mg/dL [facility] Comment:Desirable HDL: great er than 40 mg/dL Note: This HDL assay may give artificially low results in patients with liver disease. Blood Venous blood specimen / Unknown 04/29/2024 12:27 PM EDT 04/29/2024 1:15 PM EDT [facility] [employer] LAB BLOOD ORDERABLES Final Re sult [facility] [address] [place] [phone] from Last 3 Months or Most Recently Relevant to Health Maintenance [place] FULL (MEDICAID) Care Teams Lockstitch Lining Maker Relationship Specialty Start Date End Date Jose J Schaefer MD [address] [place] [phone] PCP - General Internal Medicine 06/08/24
--- OUTSIDE RECORDS SUMMARY | 2025-03-14 12:13 | XMS_ITS | Referral Summary ---
Author Organization [facility] Address [address] [place] [address] Care Team Providers Care Manager Post Name Role Phone Jose J Schaefer MD Primary Care Prov ider Encounters Date Type Department Care Team Description 02/28/2025 Transcribe Orders [facility] Physician Referral Services [address] [place] [address] Ava Ackerman Chronic right-sided low back pain, unspecified whether sciatica present (Primary Dx) from Last 3 Months Allergies No known active allergies Medications DULoxetine [...] Care Team (Late st Contact Info) Description 03/28/2025 2:15 PM EDT Office Visit [facility] [address] [place] [address] Jignesh Hummel MD [address] [place] [address] Insurance [facility] HSNO/FREE CARE Care Teams Manager Post Relationship Specialty Start Date End Date Jose J Schaefer MD [address] [place] [phone] PCP - General Internal Medicine 03/01/25
[2025-03-14 15:12] LABS: MANUAL DIFF FLAG NO
[2025-03-14 15:30] LABS: Hematocrit 40.9 % (42.0-52.0); Hemoglobin 14.1 g/dl (14.0-18.0); Imm Gran Abs Auto 0.06 X10*3/uL (0.00-0.03); Imm Gran Pct Auto 0.7 % (0.0-0.4); Lymphocytes Absolute Auto 3.3 X10*3/uL (1.2-4.9); Mean Corpuscular HGB Conc 34.5 g/dl (31.0-36.0); Mean Corpuscular Hemoglobin 32.3 pg (27.0-33.0); Mean Corpuscular Volume 93.6 fL (80.0-98.0); NRBC Abs Auto 0.000 X10*3/uL (0.0-0.012); NRBC Pct Auto 0.0 /100WBC (0.0-0.2); Platelet Count 190 X10*3/uL (160-400); Red Blood Count 4.37 X10*6/uL (4.60-5.80); White Blood Count 8.0 X10*3/uL (4.8-10.8)
[2025-03-14 15:41] LABS: Alanine Aminotransferase 51 U/L (0-40); Albumin Level 4.1 g/dL (3.5-5.0); Alkaline Phosphatase 60 U/L (39-117); Anion Gap 10 (12-20); Aspartate Amino Transferase 46 U/L (5-37); Blood Urea Nitrogen 8 mg/dL (9-16); Calcium 8.8 mg/dL (8.4-10.2); Carbon Dioxide 30 mmol/L (22-29); Chloride 106 mmol/L (96-108); Estimated Glomerular Filt Rate 48; Potassium 4.6 mmol/L (3.3-5.1); Sodium 141 mmol/L (135-145); Total Protein 6.5 g/dL (6.5-8.0)
== END 2025-03-14 11:09 | disposition home or self-care (01) ==
LOC: HO.CHCLDS 11:08
PROVIDERS: Registered Nurse; Visit Provider Internal Medicine
DX: R10.11 Right upper quadrant pain (principal)
CPT/HCPCS: 36415; 80053; 85025

== ENCOUNTER 2025-07-01 10:16 | Emergency (ER) | payer MEDICAID, OTHER, SELFPAY ==
[2025-07-01] VITALS (9 sets, daily range): BP systolic 111–134; BP diastolic 64–77; PULSE 86–97; RESP 18–28; TEMP 36.3; O2SAT 98–100; BMI 31.0
--- NOTE | ~2025-07-01 | CT_ITS ---
CLINICAL HISTORY: concerned for rectal abscess Exam: Contrast-enhanced CT abdomen and pelvis with multiplanar reformats. Comparison: None. Findings: CT abdomen: Lung bases are clear. Liver is free of focal lesions and ductal dilatation. Gallbladder is unremarkable. Spleen appears unremarkable. Pancreas and adrenal glands appear unremarkable. Kidneys appear unremarkable. No free intraperitoneal fluid or retroperitoneal masses or adenopathy. Abdominal aorta is normal caliber. Bowel loops reveal mild colonic diverticulosis, without CT evidence of diverticulitis. The appendix is unremarkable. CT pelvis: Prostate gland and seminal vesicles are unremarkable. Urinary bladder is free of gross filling defects. No definable perirectal abscess or collection is appreciated. However, posterior to the anus at roughly 6 o'clock position. There is a poorly defined hypodense area or collection measuring up to 3.7 x 2.9 cm AP and transverse dimension (4; 804), and 2.7 cm craniocaudad dimension (7; 62), compatible with a perianal abscess or phlegmon. No supralevator extension. No definable sinus tracts. No other circumscribed collections. No pelvic masses, fluid or adenopathy. Osseous structures reveal no destructive osseous lesions. Impression: 1. Perianal collection at 6 o'clock position measuring up to 3.7 cm, concerning for abscess or phlegmon. This document has been electronically signed by: Brian Taylor MD on 07/01/2025 13:53:35
--- OUTSIDE RECORDS SUMMARY | 2025-07-01 09:00 | XMS_ITS | Encounter Summary ---
Author Organization [employer] Address [address] [place] [address] Care Team Providers Care Silver Cleaner Name Role Phone Jose J Schaefer MD Primary Care Prov ider Encounter Details Date Type Department Care Team (Late st Contact Info) Description 07/01/2025 9:00 AM EDT Office Visit [facility] [address] [place] [address] Chronic back pain, unspecified back location, unspecified back pain laterality (Primary Dx) Social History Tobacco Use Types [...] Sign Reading Time Taken Comments Blood Pressure 121/81 07/01/2025 9:16 AM EDT Pulse 113 07/01/2025 9:16 AM EDT Temperature 37.2 C (98.9 F) 07/01/2025 9:16 AM EDT Respiratory Rate 17 07/01/2025 9:16 AM EDT Oxygen Saturation 98% 07/01/2025 9:16 AM EDT Inhaled Oxygen Concentration - - Weight 93.2 kg (205 lb 8 oz) 07/01/2025 9:16 AM EDT Height 172.7 cm (5' 8 ) 07/01/2025 9:16 AM EDT Body Mass Index 31.25 07/01/2025 9:16 AM EDT documented in this encounter Plan of Treatment Not on file documented as of this encounter Visit Diagnoses Diagnosis Chronic back pain, unspecified back location, unspecified back pain laterality- Primary documented in this encounter Care Teams Silver Cleaner Relationship Specialty Start Date End Date Jose J Schaefer MD [address] [place] [phone] PCP - General Internal Medicine 06/08/24 documented as of this encounter
--- OUTSIDE RECORDS SUMMARY | 2025-07-01 10:49 | XMS_ITS | Encounter Summary ---
Author Organization [employer] Address [address] [place] [address] Care Team Providers Care Pelota Maker Name Role Phone Jose J Schaefer MD Primary Care Prov ider Reason for Visit * Reason Onset Date Comments Referral 05/31/2025 Encounter Details Date Type Department Care Team ([facility] Contact Info) Description 05/31/2025 Telephone [facility] [address] [place] [address] Jose J Schaefer MD [address] [place] [address] Referral Social History Tobacco Use Types Packs/Day Years [...] encounter Miscellaneous Notes * Telephone Encounter - Boom Corbett - 05/31/2025 12:02 PM EDT Tc from Paty at [facility] endoscopy requesting for a referral for a egg breaker , so pt can have a cardiac work up before a upper endoscopy . It is needed expedited Contact Fernando S at [phone] Contact pt when referral is placed at [phone] (citizen of [place]) documented in this encounter Plan of Treatment Not on file documented as of this encounter Visit Diagnoses Not on filedocumented in this encounter Care Teams Pelota Maker Relationship Specialty Start Date End Date Jose J Schaefer MD [address] [place] [phone] PCP - General Internal Medicine 06/08/24 documented as of this encounter
--- OUTSIDE RECORDS SUMMARY | 2025-07-01 10:49 | XMS_ITS | Clinical Summary ---
Author Organization [employer] Address [address] [place] [address] Care Team Providers Care Field Marketing Associate Name Role Phone Jose J Schaefer MD Primary Care Prov ider Allergies No known active allergies Medications * This document contains information received from the source organization and may not represent a complete record from that organization. nicotine (Nicoderm CQ) 21 MG/24HR patchIndication s:Tobacco use disorder Place 1 patch on the skin 1 (one) time each day at the same time. 30 patch 3 08/15/20 24 Active naproxen (Naprosyn) 500 MG tabletIndicatio ns:Chronic right-sided low back pain, unspecified whether sciatica present Take 1 tablet by oral route twice daily as needed for moderate pain 30 tablet 1 02/23/20 25 Active gabapentin (Neurontin) 100 MG capsuleIndicati ons:Anxiety Take 1 capsule (100 mg) by mouth 2 times daily. 60 capsule 1 03/01/20 25 Active sucralfate (Carafate) 1 g tablet Take 1 tablet (1 g) by mouth before breakfast and before evening meal. 60 tablet 11 03/02/20 25 026 Active cyclobenzaprine (Flexeril) 10 MG tabletIndicatio ns:Chronic midline low back pain without sciatica Take 1 tablet (10 mg) by mouth 3 times daily. 30 tablet 06/07/20 25 Active pantoprazole (Protonix) 40 MG EC tabletIndicatio ns:Gastroesopha geal reflux disease without esophagitis Take 1 tablet (40 mg) by mouth before breakfast. Do not crush, chew, or split. 30 tablet 11 06/07/20 25 026 Active polyethylene glycol, PEG, 3350 (MiraLax) 17 GM/SCOOP powderIndicatio ns:Gastroesopha geal reflux disease without esophagitis,Epi gastric pain Take 17 g by mouth Once per day. 510 g 2 06/07/20 25 025 Active propranolol (Inderal) 10 MG tabletIndicatio ns:Anxiety Take 1 tablet (10 mg) by mouth if needed in the morning and at bedtime (Anxiety). 60 tablet 1 06/07/20 25 025 Active QUEtiapine (SEROquel) 100 MG tabletIndicatio ns:Bipolar 1 disorder (CMS/HCC) (HCC) Take 2 tablets (200 mg) by mouth at bedtime. 60 tablet 1 06/07/20 25 025 Active hydrOXYzine HCl (Atarax) 50 MG tabletIndicatio ns:Anxiety Take 1 tablet (50 mg) by mouth if needed in the morning, at noon, and at bedtime for anxiety. 90 tablet 1 06/07/20 25 025 Active divalproex (Depakote ER) 500 MG 24 hr tabletIndicatio ns:Bipolar 1 disorder (CMS/HCC) (HCC) TAKE TWO TABLETS TWICE DAILY IN THE MORNING AND AT BEDTIME, DO NOT BREAK, CRUSH, DISSOLVE OR CHEW 120 tablet 1 06/07/20 25 Active nicotine polacrilex (Nicorette) 4 MG gumIndications: Tobacco use disorder CHEW 1 PIECE OF GUM EVERY 2 HOURS IF NEEDED FOR SMOKING CESSATION 220 each 2 06/07/20 25 Active lidocaine (Lidoderm) 5 % patch Apply 1 patch topically Once per day. Remove & discard patch within 12 hours or as directed by MD. 30 patch 3 06/07/20 25 Active clonazePAM (KlonoPIN) 0.5 MG tablet Take 1 tablet by mouth 2 times daily. 01/05/20 25 Active nicotine polacrilex (Nicorette) 4 MG gumIndications: Tobacco use disorder CHEW 1 PIECE OF GUM EVERY 2 HOURS IF NEEDED FOR SMOKING CESSATION 200 each 2 10/25/19 25 025 Discontinued Omeprazole 20 MG tablet delayed-release Take 1 tablet (20 mg) by mouth Once per day. 90 tablet 03/01/20 25 025 Discontinued esomeprazole (NexIUM) [address] capsule Take 1 capsule (20 mg) by mouth before breakfast. Do not open capsule. 30 capsule 11 03/02/20 025 Discontinued hydrOXYzine HCl (Atarax) 50 MG tabletIndicatio ns:Anxiety Take 1 tablet (50 mg) by mouth if needed in the morning, at noon, and at bedtime for anxiety. 90 tablet 1 03/30/20 025 Discontinued(Re order (will not trigger notification to Pharmacy)) QUEtiapine (SEROquel) 100 MG tabletIndicatio ns:Bipolar 1 disorder (CMS/HCC) (HCC) Take 2 tablets (200 mg) by mouth at bedtime. 60 tablet 1 03/30/20 025 Discontinued(Re order (will not trigger notification to Pharmacy)) propranolol (Inderal) 10 MG tabletIndicatio ns:Anxiety Take 1 tablet (10 mg) by mouth if needed in the morning and at bedtime (Anxiety). 60 tablet 1 03/30/20 025 Discontinued(Re order (will not trigger notification to Pharmacy)) cyclobenzaprine (Flexeril) 10 MG tablet TAKE ONE TABLET THREE TIMES DAILY FOR 10 DAYS 30 tablet 05/19/20 025 Discontinued(Re order (will not trigger notification to Pharmacy)) divalproex (Depakote ER) 500 MG 24 hr tabletIndicatio ns:Bipolar 1 disorder (CMS/HCC) (HCC) TAKE TWO TABLETS TWICE DAILY IN THE MORNING AND AT BEDTIME, DO NOT BREAK, CRUSH, DISSOLVE OR CHEW 120 tablet 1 05/26/20 025 Discontinued(Re order (will not trigger notification to Pharmacy)) nicotine polacrilex (Nicorette) 4 MG gumIndications: Tobacco use disorder CHEW 1 PIECE OF GUM EVERY 2 HOURS IF NEEDED FOR SMOKING CESSATION 220 each 2 06/02/20 025 Discontinued(Re order (will not trigger notification to Pharmacy)) cyclobenzaprine (Flexeril) 10 MG tablet Take 1 tablet (10 mg) by mouth 3 times daily. 30 tablet 06/02/20 25 025 Discontinued(Re order (will not trigger notification to Pharmacy)) pantoprazole (Protonix) 40 MG EC tablet Take 1 tablet (40 mg) by mouth before breakfast. Do not crush, chew, or split. 30 tablet 11 06/02/20 025 Discontinued(Re order (will not trigger notification to Pharmacy)) polyethylene glycol, PEG, 3350 (MiraLax) 17 GM/SCOOP powder Take 17 g by mouth Once per day. 527 g 2 06/02/20 025 Discontinued(Re order (will not trigger notification to Pharmacy)) Active Problems Problem Noted Date Diagnosed Date Back pain 07/01/2025 Epigastric pain 03/01/2025 Assessment & Plan (03/01/2025 9:13 AM EDT): Will refer to gastroenterology, continue PPI, lifestyle modifications reviewed Gastroesophageal reflux disease without esophagi tis 01/25/2025 Assessment & Plan (01/25/2025 9:44 AM EDT): Lifestyle modifications discussed, will start on omeprazole, call back if not improving Benzodiazepine abuse ([facility]) 01/03/2025 Bipolar 1 disorder ([facility]) 11/29/2024 Anxiety 11/29/2024 Adjustment disorder with anxious [...] BH/psych therapy locally, he refers has a [place] psychiatrist, refers he will get prescription delivered from [place]??. I made clear with skein dyer as help that the best option would be to be followed locally for his mental conditions, also I made clear that if he will receive services from a psychiatrist in [place] and he needs the prescription from me [...] lexapro, follow up in 1 month Encounters Date Type Department Care Team Description 07/01/2025 9:00 AM EDT Office Visit [facility] [address] [place], [place] [phone] Chronic back pain, unspecified back location, unspecified back pain laterality (Primary Dx) 07/01/2025 Travel 06/27/2025 Telephone [facility] [address] [place] [address] Jose J Schaefer MD Med Refill; Referral 06/19/2025 Telephone [facility] [address] [place] [address] Jose J Schaefer MD Change PCP 06/07/2025 Orders Only [facility] [address] [place] [address] Jose J Schaefer MD Anxiety; Bipolar 1 disorder (CMS/HCC) ([facility]); Tobacco use disorder 06/07/2025 Refill [facility] [address] [place] [address] Jose J Schaefer MD Gastroesophageal reflux disease without esophagitis; Epigastric pain; Chronic midline low back pain without sciatica 06/02/2025 Orders Only [facility] [address] [place] [address] Jose J Schaefer MD Chest pain, unspecified type (Primary Dx) 06/02/2025 Refill [facility] [address] [place], [place] [phone] Jose J Schaefer MD Tobacco use disorder 06/01/2025 Telephone [facility] [address] [place] [address] Jose J Schaefer MD 05/31/2025 Telephone [facility] [address] [place] [address] Jose J Schaefer MD Referral 05/26/2025 Refill [facility] [address] [place] [address] Faviola Fung MD Bipolar 1 disorder ([facility]) 05/18/[address] [facility] [address] [place] [address] Jose J Schaefer MD 05/18/[address] [facility] [address] [place] [address] Jose J Schaefer MD Med Refill from Last 3 Months Immunizations Immunization Administration Dates Next Due BCG 1985 DTaP 05/05/1986, 5,1985,04/19 Hep B, Adolescent or Pediatric 05/09/2006,2005 Hep B, adult 06/02/2024,,11/14/2023,04/08 IPV 04/22/1986,1985,1985 Influenza, seasonal, injecta ble, preservative [...] Mass Index 31.25 07/01/2025 9:16 AM EDT Plan of Treatment Health Maintenance [...] Influenza Vaccine (#1) 2025 06/02/2024 Tobacco Screening 07/01/2026 07/01/2025 Lipid Panel 04/29/2029 04/29/2024 Zoster Vaccines (1 [...] PM EDT) Hepatitis A IgM Nonreactive Nonreactive [facility] Comment:IgM antibodies to PHAM V not detected; does not exclude earlyacute or recovered HAV infection. ~Hepatitis B Surface Antibody REACTIVE Nonreactive [facility] Comment:REACTIVE: > 11.99 mI U/mL Hepatitis B Core Antibody Nonreactive Nonreactive [facility] Hepatitis C Antibody Nonreactive Nonreactive [facility] Comment:Antibodies to HCV no t detected; does not exclude early acuteHCV infection. Hepatitis B Surface Ag Negative Negative [facility] Blood Venous blood specimen / Unknown 04/29/2024 12:27 PM EDT 04/29/2024 1:15 PM EDT [facility] LAB BLOOD ORDERABLES Final Re sult [facility] [address] [place] [phone] * HIV-1/2 Antigen and Antibodies, Fourth Generation, with Reflexes (04/29/2024 12:27 PM EDT) HIV AB/AG Nonreactive Nonreactive [facility] Comment:HIV-1 p24 Ag and/or HIV-1/HIV-2 Ab not detected.A test result that is nonreactive does not exclude thepossibility of exposure to or infection with HIV-1 and/orHIV-2. Nonreactive results in this assay for individualswith prior exposure to HIV-1 and/or HIV-2 may be due toantigen and antibody levels that are below the limit ofdetection of this assay.The [employer] HIV Ag/Ab Combo assay result andsupplemental assay results should be interpreted inconjunction with the patient's clinical presentation,history and other laboratory results. If the results areinconsistent with clinical evidence, additional testing issuggested to confirm the result. Blood Venous blood specimen / Unknown 04/29/2024 12:27 PM EDT 04/29/2024 1:15 PM EDT [facility] LAB BLOOD ORDERABLES Final Re sult Performing Organization Address [facility]/State/ZIP Co de Phone Number [facility] [address] [place], [place] [phone] * (ABNORMAL) Lipid Panel, Standard (04/29/2024 12:27 PM EDT) Triglycerides 95 <150 mg/dL [facility] Comment:Desirable Triglyceri de: less than 150 mg/dLBorderline High Triglyceride 150-199 mg/dLHigh Triglyceride: 200-499 mg/dLVery High Triglyceride: greater than or equal to 5OO mg/dL Cholesterol 190 <200 mg/dL [facility] Comment:Desirable Cholestero l: less than 200 mg/dLBorderline High Cholesterol: 200-239 mg/dLHigh Cholesterol: greater than 239 mg/dL LDL Cholesterol Calculated 128(H) <100 mg/dL [facility] Comment:Desirable LDL: less than 100 mg/dLNear Optimal/Above Optimal LDL: 110- 129 mg/dLBorderline High LDL: 130-159 mg/dLHigh LDL: 160-189 mg/dLVery High LDL: greater than or equal to 190 mg/dL HDL Cholesterol 43 >40 mg/dL [facility] Comment:Desirable HDL: great er than 40 mg/dL Note: This HDL assay may give artificially low results in patients with liver disease. Blood Venous blood specimen / Unknown 04/29/2024 12:27 PM EDT 04/29/2024 1:15 PM EDT [facility] LAB BLOOD ORDERABLES Final Re sult [facility] [address] [place] [address] [phone] from Last 3 Months or Most Recently Relevant to Health Maintenance Insurance [place] [facility] [facility] ADULT DENTAL - HSN FULL (MEDICAID) Care Teams Field Marketing Associate Relationship Specialty Start Date End Date Jose J Schaefer MD [address] [place] [phone] PCP - General Internal Medicine 06/08/24
--- OUTSIDE RECORDS SUMMARY | 2025-07-01 10:49 | XMS_ITS | Encounter Summary ---
Author Organization [facility] Address [address] [place] [address] Care Team Providers Care Maintenance Mechanic Name Role Phone Jose J Schaefer MD Primary Care Prov ider Reason for Referral * Consultation (Routine) - Authorized Specialty Diagnoses / Procedures Referred By Carlos t Referred To Contact Gastroenterology Diagnoses Epigastric pain Jose J Schaefer MD [address] [place] [address] Phone: tel: fax: Madisyn Lira MD [address] [place] [address] [place] [address] Phone: tel: fax: Referral ID Status Reason Start Date Expiration Date Visits Requested Visits Authorized [id number] Authorized Specialty Services Required 03/20/2025 04/20/2026 6 6 Encounter Details Date Type Department Care Team (Latest Contact Info) Description 03/20/2025 Transcribe Orders [facility] Physician Referral Services [address] [place] [address] Jose J Schaefer MD [address] [place] [address] Epigastric pain (Primary Dx) Social History Tobacco Use Types Packs/Day Years Used Date Smoking Tobacco: Never Assessed Sex and Gender Information Value Date Recorded Sex Assigned at Male 06/05/2025 9:07 AM EDT Legal Sex Male 11:19 AM EDT Gender Identity Male 06/05/2025 9:48 AM EDT Sexual Orientation Straight 06/05/2025 9: 48 AM EDT documented as of this encounter Plan of Treatment Upcoming Encounters Date Type Department Care Team (Late st Contact Info) Description 07/04/2025 10:15 AM EDT Appointment [facility] [address] [place] [phone] Jignesh Hummel MD [address] [place] [phone] 07/04/2025 10:15 AM EDT Appointment [facility] Xray [address] [place] [phone] 07/19/2025 10:30 AM EST Appointment [facility] [address] [place] [address] 08/22/2025 1:30 PM EST Appointment [facility] Cardiac Ultrasound [address] [place] [address] Scheduled Referrals Name Type Priority Associated Diagnoses Order Schedule Ambulatory referral to Gastroenterology Outpatient Referral Routine Epigastric pain Expected: 03/20/2025, Expires: 04/20/2026 documented as of this encounter Visit Diagnoses Diagnosis Epigastric pain- Primary Abdominal pain, epigastric documented in this encounter Care Teams Maintenance Mechanic Relationship Specialty Start Date End Date Jose J Schaefer MD [address] [place] [phone] PCP - General Internal Medicine 03/01/25 documented as of this encounter
--- OUTSIDE RECORDS SUMMARY | 2025-07-01 10:49 | XMS_ITS | Clinical Summary ---
Author Organization [facility] Address [address] [place] [address] Care Team Providers Care Silver Plater Name Role Phone Jose J Schaefer MD Primary Care Prov ider Allergies No known active allergies Medications divalproex ER (DEPAKOTE ER) 500 mg tablet Take 500 mg by mouth 2 (two) times a day. Active propranoloL (INDERAL) 10 mg tablet Take 10 mg by mouth 2 times daily as needed. 03/01/20 25 Active simethicone (MYLICON) 80 mg chewable tablet Chew and swallow 80 mg by mouth every 6 hours as needed for flatulence. 02/23/[address] (PROTONIX) 40 mg tablet Take 1 tablet (40 mg total) by mouth 2 times a day. 60 tablet 2 03/31/20 25 Active nicotine polacrilex (NICORETTE) [address] 4 mg between cheek and gums as needed. 06/07/[address] (CYMBALTA) 20 mg capsule Take 20 mg by mouth once a day. 05/23/20 24 025 Discontinued clonazePAM (KlonoPIN) 0.5 mg tablet Take 0.5 mg by mouth 2 times a day. 01/05/20 25 025 Discontinued QUEtiapine (SEROquel) 100 mg tablet Take 100 mg by mouth nightly. 03/01/20 25 025 Discontinued hydrOXYzine (ATARAX) 50 mg tablet Take 50 mg by mouth 3 times daily as needed. 03/01/20 25 025 Discontinued sucralfate (CARAFATE) 1 gram tablet Take 1 g by mouth 2 times a day. 03/02/20 025 Discontinued cyclobenzaprin e (FLEXERIL) 10 mg tablet Take 10 mg by mouth 3 times daily. 03/14/20 Discontinued(Th erapy Completed or No Longer Needed) acetaminophen (Tylenol Arthritis Pain) 650 mg 8 hr tablet Take 1,300 mg by mouth every 8 hours as needed for pain. Discontinued ibuprofen-acet aminophen (Motrin Dual Action W-Tylenol) 125-250 mg tablet Take 2 tablets by mouth every 8 hours. Discontinued polyethylene glycol 3350 (MIRALAX) powder Take 17 g by mouth daily. Mix powder in 4 to 8 oz of water, juice, coffee, or tea prior to administrat ion. 510 g 2 03/31/20 Active Problems Problem Noted Date Diagnosed Date Epigastric pain 03/31/2025 Atypical chest pain 03/31/2025 Encounters Date Type Department Care Team Description 06/22/2025 9:20 AM EDT Office Visit [facility] 4th floor Cardiology Medicine [address] [place] [phone] Supervisor Graphite: Andrzej Haile MD Shortness of breath (Primary Dx); Pre-op evaluation 06/21/2025 Transcribe Orders [facility] Physician Referral Services [address] [place] [address] Jose J Schaefer MD Chest pain, unspecified type (Primary Dx) 06/05/2025 3:20 PM EDT Telehealth [facility] A [address] [place] [address] Jacklyn Kelly PA Lumbar stenosis with neurogenic claudication (Primary Dx); Radiculopathy of lumbar region 05/31/2025 11:00 AM EDT - 05/31/2025 11:30 AM EDT Surgery [facility] Endoscopy [address] [place] [address] Josemanuel Simpson MD PhD UPPER ENDOSCOPY; DIAGNOSTIC WITH BRUSH/WASH (SP) WITH POSSIBLE MODERATE SEDATION [88262 (CPT )] 05/31/2025 10:30 AM EDT - 05/31/2025 12:17 PM EDT Hospital Encounter [facility] Endoscopy [address] [place] [address] Josemanuel Simpson MD PhD Discharge Disposition: Home or Self Care () 05/17/2025 11:55 AM EDT - 05/17/2025 11:59 PM EDT Hospital Encounter [facility] Xray [address] [place] [address] Pain Discharge Disposition: Home or Self Care () 05/17/2025 8:56 AM EDT - 05/17/2025 11:54 AM EDT Hospital Encounter [facility] [address] [place] [id number] Jignesh Hummel MD Lumbar stenosis with neurogenic claudication (Primary Dx); Spinal stenosis, lumbar region with neurogenic claudication Discharge Disposition: Home or Self Care () 05/16/2025 Prep for Case [facility] [address] [place] [phone] Supervisor Graphite: Josemanuel Carrillo MD PhD 05/09/2025 Telephone [facility] B [address] [place] [phone] Telephone Intake, Staff PAC Test Result Request Dr Hummel 04/24/2025 Prep for Case [facility] [address] [place] [phone] Supervisor Graphite: Kike Jackson MD 03/31/2025 11:30 AM EDT Office Visit [facility] [address] [place] [phone] Supervisor Graphite: Daphne Galo MD Epigastric pain (Primary Dx); Atypical chest pain from Last 3 Months Social History Tobacco Use Types Packs/Day Years Used Date Smoking Tobacco: Every Day Cigarettes Passive Smoke Exposure: Never Smokeless Tobacco: Never Tobacco Cessation:Ready to Q uit: Yes; Counseling Given: Yes Alcohol Use Standard Drinks/Week Comments Never 0 (1 standard drink = 0.6 oz pur e alcohol) Hunger Vital Sign Answer Date Recorded Within the past 12 months, y ou worried that your food would run out before you got the money to buy more. Never true 05/16/20 25 Within the past 12 months, t he food you bought just didn't last and you didn't have money to get more. Never true 05/16/2025 Sex and Gender Information Value Date Recorded Sex Assigned at Male 06/05/2025 9:07 AM EDT Legal Sex Male 11:19 AM EDT Gender Identity Male 06/05/2025 9:48 AM EDT Sexual Orientation Straight 06/05/2025 9: 48 AM EDT Last Filed Vital Signs Vital Sign Reading Time Taken Comments Blood Pressure 119/85 06/22/2025 9:37 AM EDT Pulse 87 06/22/2025 9:37 AM EDT Temperature 36.5 C (97.7 F) 05/17/2025 9:19 AM EDT Respiratory Rate 20 06/22/2025 9:37 AM EDT Oxygen Saturation 98% 06/22/2025 9:37 AM EDT Inhaled Oxygen Concentration - - Weight 94.2 kg (207 lb 10.8 oz) 06/22/2025 9:37 AM EDT Height 175 cm (5' 8.9 ) 05/31/2025 10:5 7 AM EDT Body Mass Index 30.76 05/31/2025 10:57 AM EDT Plan of Treatment Upcoming Encounters Date Type Department Care Team (Late st Contact Info) Description 07/04/2025 10:15 AM EDT Appointment [facility] [address] [place] [phone] Jignesh Hummel MD [address] [place] [phone] 07/04/2025 10:15 AM EDT Appointment [facility] Xray [address] [place] [phone] 07/19/2025 10:30 AM EST Appointment [facility] Heart Station [address] [place] [address] 08/22/2025 1:30 PM EST Appointment [facility] Cardiac Ultrasound [address] [place] [address] Health Maintenance Due Date Last Done Comments Hepatitis C Screening 1985 Pneumococcal Vaccine: Pediat jamilah (0-5 Years) and At-Risk Patients (6-50 Years) (1 of 2 - PCV) 02/01/2004 DTaP,Tdap,and Td Vaccines (5 - Tdap) 11/19/2023 11/18/2023, 02/07/2008, 05/05/1986, Additional history exists Varicella Vaccines (2 of 2 - 13+ 2-dose series) 06/30/2024 06/02/2024 Alcohol/Substance Use Screening 09/07/2024 Depression Screening and Follow-Up 09/07/2024 Social Drivers of Health Luann ual Screening 09/07/2024 COVID-19 Vaccine (5 - 2024-2 6 season) 2025 06/02/2024, 09/30/2021, 05/25/2021, Additional history exists Influenza Vaccine (#1) 2025 06/02/2024 Diabetes Screening 06/22/2028 06/22/2025, 1 , 03/14/2025, Additional history exists RSV Vaccine (60+ years old a nd patients) (1 - 1-dose 75+ series) 02/01/2060 HIV Screening Completed 04/29/2024, 04/29/2024 Hepatitis B Vaccines Completed 06/02/2024, 12/17/2023, 11/14/2023, Additional history exists Goals Goal Patient Goal Type Associated Problems Recent Progress Patient-Stated? Author Autogenerat ed Goal Care Plan Autogenerated Problem No Idania Durbin Procedures * Due to [place] state law, this organization might not be sharing negative HIV tests. Procedure Name Priority Date/Time Associated Diagnosis Comments HEMOGLOBIN A1C Routine 06/22/2025 10:27 AM EDT Pre-op evaluation COMPREHENSIVE METABOLIC PANEL Routine 10:27 AM EDT Pre-op evaluation LIPID PANEL W/REFLEX TO DIRE CT LDL Routine 06/22/2025 10:27 AM EDT Pre-op evaluation LIPOPROTEIN A (LPA) Routine 06/22/2025 10:27 AM EDT Pre-op evaluation TSH REFLEX FREE T4 Routine 06/22/2025 10:27 AM EDT Shortness of breath ECG 12-LEAD Routine 06/22/2025 9:42 AM EDT Pre-op evaluation LA ESOPHAGOGASTRODUODENOSCOP Y TRANSORAL DIAGNOSTIC 05/31/2025 7:00 PM EDT Abdominal pain, epigastric FL C-ARM INJECTION NON-REPORTABLE Routine 05/17/2025 10:12 AM EDT Pain LA INJECT ANES/STEROID TIEN EN LUMBAR/SACRAL W IMG GUIDE ,1 LEVEL Routine 05/17/2025 9:30 AM EDT Lumbar stenosis with neurogenic claudication MRI LUMBAR SPINE WO CONTRAST Routine 9:30 PM EDT Spinal stenosis, lumbar region with neurogenic claudication Degeneration of intervertebral disc of lumbar region with discogenic back pain from Last 3 Months Results * Due to [place] state law, this organization might not be sharing negative HIV tests. * TSH Reflex Free T4 (06/22/2025 10:27 AM EDT) TSH 2.250 0.280 - 3.890 uIU/mL 06/22/2025 11:23 AM EDT [facility] Blood Structure of peripheral vein / Unknown Venipuncture / Unknown 06/22/2025 10:27 AM EDT 06/22/2025 10:47 AM EDT us Andrzej Almazan MD LAB BLOOD ORDERABLES Final Result [facility] [address] [place] [address], * (ABNORMAL) Lipid Panel w/Reflex to Direct LDL (06/22/2025 10:27 AM EDT) Cholesterol 219(H) <=199 mg/dL 06/22/2025 11:23 AM EDT [facility] Triglycerides 291(H) <=149 mg/dL 06/22/2025 11:23 AM EDT [facility] Cholesterol, HDL 33(L) 40 - 59 mg/dL 06/22/2025 11:23 AM EDT [facility] Cholesterol, Non-HDL 186 mg/dL 06/22/2025 11:23 AM EDT [facility] LDL Cholesterol 128(H) <100 mg/dL 06/22/2025 11:23 AM EDT [facility] Comment:LDL-C is calculated using the Friedewald calculation. VLDL 58.2 mg/dL 06/22/2025 11:23 AM EDT [facility] Cholesterol/HDL Ratio 6.6(H) <5.0 06/22/2025 11:23 AM EDT [facility] Blood Structure of peripheral vein / Unknown Venipuncture / Unknown 06/22/2025 10:27 AM EDT 06/22/2025 10:47 AM EDT Narrative [facility] - 06/22/2025 11:23 AM EDT Adult Treatment Panel III Guidelines of NCEP 2001 Category: Total Cholesterol (mg/dL) Desirable <200 Borderline High 200-239 High >=240 Category: LDL Cholesterol (mg/dL) Optimal <100 Near Optimal/Above Optimal 100-129 Borderline High 130-159 High 160-189 Very High >=190 Category: HDL Cholesterol (mg/dL) Low <40 High >=60 NCEP's Expert Panel on Blood Cholesterol in Children and Adolescents Category: Total Cholesterol (mg/dL) Desirable <170 Borderline High 170-199 High >=200 Category: LDL Cholesterol (mg/dL) Desirable <110 Borderline High 110-129 High >=130 Andrzej Almazan MD LAB BLOOD ORDERABLES Final Result Performing Organization Address City/[facility]/ZIP Co de Phone Number [facility] [address] [place] [address], * Lipoprotein A (LPA) (06/22/2025 10:27 AM EDT) Lipoprotein 18 <75 nmol/L 06/27/2025 2:43 PM EDT [facility] LAUR[facility] (ARIEL) Comment: Risk Category Optimal < 75 nmol/L Moderate 75 - 125 nmol/L High > 125 nmol/L Cardiovascular event risk category cut points (optimal, moderate, high) are based on Oren Clayton [facility] 2017;69:[id number]. Blood Structure of peripheral vein / Unknown Venipuncture / Unknown 06/22/2025 10:27 AM EDT 06/22/2025 10:47 AM EDT Narrative [facility] - 06/27/2025 2:43 PM EDT [facility] Received Date: Andrzej Almazan MD LAB BLOOD ORDERABLES Final Result Performing Organization Address City/[facility] Co de Phone Number [facility] [address] [place] [address] 3rd Floor, [place] [address], [facility] AGUILAR (ARIEL) [address], [place] , [place] * Hemoglobin A1c (06/22/2025 10:27 AM EDT) Hemoglobin A1C 5.6 <5.7 % 06/23/2025 1:13 PM EDT [facility] Comment: For the purpose of screening for the presence of diabetes: <5.7% Consistent with the absence of diabetes 5.7-6.4% Consistent with increased risk for diabetes (prediabetes) > or =6.5% Consistent with diabetes This assay result is consistent with a decreased risk of diabetes. Currently, no consensus exists regarding use of hemoglobin A1c for diagnosis of diabetes in children. According to [place] Diabetes Association (ADA) guidelines, hemoglobin A1c <7.0% represents optimal control in non- diabetic patients. Different metrics may apply to specific patient populations. Standards of Medical Care in Diabetes(ADA). eAG (MG/DL) 114 mg/dL 06/23/2025 1:13 PM EDT [facility] eAG (MMOL/L) 6.3 mmol/L 06/23/2025 1:13 PM EDT [facility] Blood Structure of peripheral vein / Unknown Venipuncture / Unknown 06/22/2025 10:27 AM EDT 06/22/2025 10:38 AM EDT [facility] 06/23/2025 1:13 PM EDT [facility] Received Date: Andrzej Almazan MD LAB BLOOD ORDERABLES Edited Result - Final [facility] [address] [facility] [address]rd Floor, [place] [address], [facility] [address], [place] [address], * (ABNORMAL) Comprehensive metabolic panel (06/22/2025 10:27 AM EDT) NA 138 135 - 145 mmol/L 06/22/2025 11:23 AM EDT [facility] K 4.5 3.5 - 5.3 mmol/L 06/22/2025 11:23 AM EDT [facility] Cl 103 97 - 110 mmol/L 06/22/2025 11:23 AM EDT [facility] CO2 26 22 - 32 mmol/L 06/22/2025 11:23 AM EDT [facility] Anion Gap 9 5 - 15 06/22/2025 11:23 AM EDT [facility] Glucose 104(H) 65 - 99 mg/dL 06/22/2025 11:23 AM ED [facility] Creatinine 1.15 0.60 - 1.30 mg/dL 06/22/2025 11:23 AM ED [facility] Calcium 9.3 8.6 - 10.5 mg/dL 06/22/2025 11:23 AM ED [facility] Total Protein 6.8 6.0 - 8.0 g/dL 06/22/2025 11:23 AM [facility] Albumin 4.1 3.5 - 5.2 g/dL 06/22/2025 11:23 AM [facility] Bilirubin, Total 0.3 0.2 - 1.2 mg/dL 06/22/2025 11:23 AM [facility] Alkaline Phosphatase 61 35 - 129 U/L 06/22/2025 11:23 AM ED [facility] AST 30 10 - 40 U/L 06/22/2025 11:23 AM [facility] ALT 29 10 - 40 U/L 06/22/2025 11:23 AM [facility] BUN 11 7 - 23 mg/dL 06/22/2025 11:23 AM [facility] eGFR 83 >=60 mL/min/1. 73m2 06/22/2025 11:23 AM [facility] Comment:The estimated glomer ular filtration rate (eGFR) is calculated using a new formula developed by the [facility]-ASN task force to eliminate race-based correction factors. The new formula uses serum/plasma creatinine, age, and gender to determine eGFR. A value below 60mls/min might indicate kidney disease and will be flagged. For additional information, see Cece et al, Am J Kidney Dis. 2021;79(2):268- 288, A Unifying Approach for GFR estimation: Recommendations of the [facility]-ASN Task Force on Reassessing the Inclusion of Race in Diagnosing Kidney Disease . Globulin, Total 2.7 2.1 - 4.2 g/dL 06/22/2025 11:23 AM EDT [facility] A/G Ratio 1.5 1.5 - 3.0 06/22/2025 11:23 AM EDT [facility] Blood Structure of peripheral vein / Unknown Venipuncture / Unknown 06/22/2025 10:27 AM EDT 06/22/2025 10:47 AM EDT us Andrzej Amlazan MD LAB BLOOD ORDERABLES Final Result Performing Organization Address City/[facility] Co de Phone Number [facility] [facility] [address] [place] [address], * ECG 12 lead (06/22/2025 9:42 AM EDT) Ventricular Rate EKG 87 BPM MUSE EKG Atrial Rate 87 BPM MUSE EKG LA Interval 148 ms MUSE EKG QRS Interval 78 ms MUSE EKG QT Interval 342 ms MUSE EKG QTC Interval 411 ms MUSE EKG P [place] 13 degrees MUSE EKG R [place] -11 degrees MUSE EKG T Wave [place] -5 degrees MUSE EKG 06/22/2025 9:42 AM EDT 06/22/2025 11:15 AM EDT Impressions MUSE EKG - 06/22/2025 11:15 AM EDT NORMAL SINUS RHYTHM NORMAL ECG NO PREVIOUS ECGS AVAILABLE Confirmed by Andrzej Almazan ([id number]) on 06/22/2025 11:15:36 AM Narrative Procedure Note Andrzej Almazan MD - 06/22/2025 IMPRESSION: NORMAL SINUS RHYTHM NORMAL ECG NO PREVIOUS ECGS AVAILABLE Confirmed by Andrzej Almazan ([id number]) on 06/22/2025 11:15:36 AM Andrzej Almazan MD ECG ORDERABLES Final Resul t Performing Organization Address City/[facility] Co de Phone Number MUSE EKG * FL C-Arm Injection Non-Reportable (05/17/2025 10:12 AM EDT) Narrative IMAGING - 05/17/2025 4:38 PM EDT This procedure does not contain a result. Please see the surgeon's note for official report. us Jignesh Hummel MD IMG FLUOROSCOPY PROCEDURES Fin al Result Performing Organization Address [facility] Co de Phone Number IMAGING * LA INJECT ANES/STEROID FORAMEN LUMBAR/SACRAL W IMG GUIDE ,1 LEVEL (05/17/2025 9:30 AM EDT) Narrative Jignesh Hummel MD - 05/17/2025 9:30 AM EDT Jignesh Hummel MD 05/17/2025 10:13 AM Right L5 Transforaminal Epidural Steroid Injection Epidural Spine Inj Date/Time: 05/17/2025 9:30 AM Performed by: Jignesh Hummel MD Authorized by: Jignesh Hummel MD Consent: Patient identity confirmed: Name and with patient Verbal consent obtained: Yes Written consent obtained: Yes Risk and benefits discussed: Yes Written informed consent was obtained from the patient. Patient states understanding of procedure being performed: Yes Patient's understanding of procedure matches consent: Yes [place] Protocol: Procedure consent matches procedure scheduled: Yes All relevant documents/tests are correctly identified, labeled, and matched to patient: Yes Relevant tests/ Imaging studies available/reviewed: Yes Correct site marked: Yes Required blood products, implants, devices and special equipment available: Yes Immediately prior to the procedure a time out was called: Yes An attending physician was present for the procedure OR the procedure was performed by an Advanced Practice Provider: Yes The patient was admitted as an outpatient to the ambulatory injection suite at [facility]. Vital signs were monitored before and after the procedure. An attending physician was present for the procedure OR the procedure was performed by an Advanced Practice Provider: Yes Procedure Details: Guidance: fluoroscopy Injection Medications: 1 mL lidocaine PF 1% (10 mg/mL); 8 mg dexAMETHasone 4 mg/mL; 1 mL iohexoL 300 mg iodine/mL The patient was prepped and draped in the usual aseptic manner and laid on the fluoroscopy table in the prone position. A 22 gauge spinal needle was placed adjacent to the right L5 spinal nerve as it passes under the pedicle. Aspiration yielded no blood or other fluid. Injection of 1cc of non-ionic radiocontrast dye revealed a typical epiradicular pattern with proximal epidural flow. This was followed by injection of a mixture of 1cc of 1.0% preservative-free lidocaine and 8 mg of dexamethasone sodium phosphate, and then flushed with 1cc of 0.9% sterile saline. The patient tolerated the procedure well with no immediate complications. Dressing: Band-Aid Post-procedure Details: The patient was observed in the ambulatory surgery department. Instructions: post-procedure instructions were reviewed The patient discharged from clinic in stable condition. us Jignesh Hummel MD IN CLINIC/BEDSIDE ORDERABLES F inal Result * MRI Lumbar Spine WO Contrast (05/03/2025 9:30 PM EDT) Anatomical Region Laterality Modality Spine, L-spine Magnetic Resonan ce 05/03/2025 9:00 PM EDT Impressions 05/07/2025 4:39 PM EDT Moderate disc bulge with superimposed right paracentral disc protrusion at L4-L5 resulting in impingement of the traversing right L5 nerve root. Moderate spinal stenosis at L4-L5. Varying degrees of multilevel foraminal stenosis, up to mild to moderate bilaterally at L4-L5. If this radiology report contains a blank impression section, it is an incomplete radiology report. Please contact the interpreting radiologist or applicable radiology division as soon as possible to obtain the completed interpretation. Workstation ID: [id number] Narrative 05/07/2025 4:39 PM EDT INDICATION: Lumbar radiculopathy, symptoms persist with > 6 wks treatment M48.062 - I10 - Spinal stenosis, lumbar region with neurogenic claudication M48.062 - I10 - Spinal stenosis, lumbar region with neurogenic claudication - LBP and B leg weakness ? stenosis TECHNIQUE: Multiplanar, multisequence MRI of the lumbar spine was performed without contrast using standard departmental protocol. COMPARISON: CT abdomen pelvis with contrast 02/28/2025 FINDINGS: For the purposes of this dictation, the lowest complete intervertebral disc space is designated L5-S1. Alignment is anatomic without spondylolisthesis. Vertebral body heights are preserved without compression deformity. Mild intervertebral disc desiccation and disc height loss at L4-L5. Multilevel epidural lipomatosis. Background marrow signal is normal. Conus is normal in caliber and signal, terminating at the L1 level. No canal collection or mass is identified. Normal distribution of the cauda equina nerve roots in the thecal sac. No abnormality in the prevertebral or paraspinal soft tissues. Retroperitoneum is unremarkable. Level by level analysis of the lumbar spine demonstrates the following: T12-L1 (sagittal images only): No disc herniation. No spinal or foraminal stenosis. L1-L2: No disc herniation. Bilateral mild facet arthropathy. No spinal or foraminal stenosis. L2-L3: No disc herniation. No spinal or foraminal stenosis. L3-L4: No disc herniation. Bilateral mild facet arthropathy. No spinal or foraminal stenosis. L4-L5: Moderate disc bulge with superimposed right paracentral disc protrusion and slight caudal migration of disc material along the posterior superior endplate of L5. Bilateral mild facet arthropathy. Impingement of the traversing right L5 nerve root. Moderate spinal stenosis. Bilateral mild to moderate foraminal stenosis. L5-S1: Small disc bulge. Bilateral mild facet arthropathy. No spinal stenosis. Bilateral mild foraminal stenosis. Resulting Agency Comment [id number] Procedure Note Aiden Wyatt MD - 05/07/2025 INDICATION: Lumbar radiculopathy, symptoms persist with > 6 wks [id number] - I10 - Spinal stenosis, lumbar region with neurogenicclaudication M48.062 - I10 - Spinal stenosis, lumbar region withneurogenic claudication - LBP and B leg weakness ? stenosis TECHNIQUE: Multiplanar, multisequence MRI of the lumbar spine wasperformed without contrast using standard departmental protocol. COMPARISON: CT abdomen pelvis with contrast 02/28/2025 FINDINGS: For the purposes of this dictation, the lowest complete intervertebraldisc space is designated L5-S1. Alignment is anatomic without spondylolisthesis. Vertebral body heightsare preserved without compression deformity. Mild intervertebral discdesiccation and disc height loss at L4-L5. Multilevel epidurallipomatosis. Background marrow signal is normal. Conus is normal in caliber and signal, terminating at the L1 level. Nocanal collection or mass is identified. Normal distribution of the caudaequina nerve roots in the thecal sac. No abnormality in the prevertebralor paraspinal soft tissues. Retroperitoneum is unremarkable. Level by level analysis of the lumbar spine demonstrates the following: T12-L1 (sagittal images only): No disc herniation. No spinal or foraminalstenosis. L1-L2: No disc herniation. Bilateral mild facet arthropathy. No spinal orforaminal stenosis. L2-L3: No disc herniation. No spinal or foraminal stenosis. L3-L4: No disc herniation. Bilateral mild facet arthropathy. No spinal orforaminal stenosis. L4-L5: Moderate disc bulge with superimposed right paracentral discprotrusion and slight caudal migration of disc material along theposterior superior endplate of L5. Bilateral mild facet arthropathy.Impingement of the traversing right L5 nerve root. Moderate spinalstenosis. Bilateral mild to moderate foraminal stenosis. L5-S1: Small disc bulge. Bilateral mild facet arthropathy. No spinalstenosis. Bilateral mild foraminal stenosis. IMPRESSION: Moderate disc bulge with superimposed right paracentral disc protrusion atL4-L5 resulting in impingement of the traversing right L5 nerve root.Moderate spinal stenosis at L4-L5. Varying degrees of multilevel foraminalstenosis, up to mild to moderate bilaterally at L4-L5. If this radiology report contains a blank impression section, it is anincomplete radiology report. Please contact the interpreting radiologistor applicable radiology division as soon as possible to obtain thecompleted interpretation. Workstation ID: [id number] us Jignesh Hummel MD IMG MRI PROCEDURES Final Resul t from Last 3 Months Additional Health Concerns Active Problems Noted Date Diagnosed Date Autogenerated Problem 05/31/2025 Insurance [place] Care Teams Silver Plater Relationship Specialty Start Date End Date Jose J Schaefer MD [address] [place] [id number] PCP - General Internal Medicine 03/01/25
--- OUTSIDE RECORDS SUMMARY | 2025-07-01 10:50 | XMS_ITS | Encounter Summary ---
Author Organization [employer] Address [address] [place] [address] Care Team Providers Care Bunch Maker Name Role Phone Jose J Schaefer MD Primary Care Prov ider Encounter Details Date Type Department Care Team (Late st Contact Info) Description 06/07/2025 Orders Only [facility] [address] [place] [address] Jose J Schaefer MD [address] [place] [address] Anxiety; Bipolar 1 disorder (CMS/HCC) (HCC); Tobacco use disorder Social History Tobacco Use Types Packs/Day Years [...] as of this encounter Plan of Treatment Not on file documented as of this encounter Visit Diagnoses Diagnosis Anxiety Anxiety state, unspecified Bipolar 1 disorder (CMS/HCC) (HCC) Tobacco use disorder documented in this encounter Care Teams Bunch Maker Relationship Specialty Start Date End Date Jose J Schaefer MD [address] [place] [id number] PCP - General Internal Medicine 06/08/24 documented as of this encounter
--- OUTSIDE RECORDS SUMMARY | 2025-07-01 10:50 | XMS_ITS | Encounter Summary ---
Author Organization [employer] Address [address] [place] [address] Care Team Providers Care Microcomputer Technician Name Role Phone Jose J Schaefer MD Primary Care Prov ider Reason for Visit * Reason Onset Date Comments Med Refill 06/27/2025 Referral 06/27/2025 Encounter Details Date Type Department Care Team ([facility] Contact Info) Description 06/27/2025 Telephone [facility] [address] [place] [address] Jose J Schaefer MD [address] [place] [address] Med Refill; Referral Social History Tobacco Use Types Packs/Day [...] encounter Miscellaneous Notes * Telephone Encounter - Terra Myrick - 06/27/2025 3:38 PM EDT Pt requesting a new referral to a psychiatrist states it would be the first time to see one since moved to [place]. Pls call pt if any questions documented in this encounter Plan of Treatment Not on file documented as of this encounter Visit Diagnoses Not on filedocumented in this encounter Care Teams Microcomputer Technician Relationship Specialty Start Date End Date Jose J Schaefer MD [address] [place] [id number] PCP - General Internal Medicine 06/08/24 documented as of this encounter
--- OUTSIDE RECORDS SUMMARY | 2025-07-01 10:50 | XMS_ITS | Encounter Summary ---
Author Organization [employer] Address [address] [place] [address] Care Team Providers Care Endoscopy Technician Name Role Phone Jose J Schaefer MD Primary Care Prov ider Encounter Details Date Type Department Care Team (Latest Contact Info) Description 07/01/2025 Travel Social History Tobacco Use Types Packs/Day [...] on filedocumented in this encounter Care Teams Endoscopy Technician Relationship Specialty Start Date End Date Jose J Schaefer MD [address] [place] [id number] PCP - General Internal Medicine 06/08/24 documented as of this encounter
--- NOTE | 2025-07-01 11:26 | ED_ITS ---
HPI - General Adult General Chief complaint: General Medical Stated complaint: rectal pain sent from clinic Time Seen by Provider: 07/01/25 10:46 Source: patient and operating room specialist Mode of arrival: ambulatory Limitations: language barrier History of Present Illness ED Provider: Nia Riggs APRN HPI narrative: 40-year-old male with a history of anxiety, depression, chronic back pain, GERD presents the ER with complaints of rectal pain and pressure for the last 2 days. Patient denies any associated drainage, fevers, chills, constipation, straining, abdominal pain, vomiting. Patient was seen at urgent care and referred into the emergency room to rule out a perirectal abscess. Related Data Home Medications ?Medication ?Instructions ?Recorded ?Confirmed nicotine (polacrilex) 4 mg gum 4 mg PO Q2H PRN Nicotin e Cravings 11/26/24 11/26/24 nicotine 21 mg/24 hr daily 1 patch topical DAILY nicot ine 11/26/24 11/27/24 transdermal patch pregabalin 150 mg capsule (Lyrica) 150 mg PO BEDTIME 0 11/26/24 11/26/24 divalproex 500 mg tablet,delayed 500 mg PO BID 5 11/27/24 release quetiapine 200 mg tablet 200 mg PO BEDTIME 11/27/24 0 11/27/24 Previous Rx's ?Medication ?Instructions ?Recorded divalproex 500 mg tablet,delayed 500 mg PO BID 7 days #14 tabs 11/27/24 release (Depakote) propranolol 40 mg tablet 40 mg PO BID PRN Anxiety 7 d ays 11/27/24 #14 tabs quetiapine 200 mg tablet 200 mg PO BEDTIME 7 days #7 tabs 11/27/24 amoxicillin 875 mg-potassium 1 tab PO BID #20 tabs clavulanate 125 mg tablet ibuprofen 600 mg tablet 600 mg PO Q8H PRN fever or p ain 07/01/25 #30 tabs oxycodone 5 mg tablet 5 mg PO Q8H PRN pain #6 tabs 07/01/25 Allergies Allergy/AdvReac Type Severity Reaction Status Date / Time shellfish derived (shellfish) Allergy Unknown Verified 07/01/25 10:31 Review of Systems 2 Review of Systems: Yes all other systems are reviewed and are negative Constitutional: Constitutional: Reports no additional constitutional complaints, Denies body ache(s), Denies chills, Denies fever(s), Denies headache(s) and Denies weakness Eyes: Eyes: Reports no additional eye complaints and Denies change in vision ENT: Reports system reviewed and no additional complaints, except as documented, Denies dizziness, Denies headache(s), Denies nasal congestion, Denies nasal discharge and Denies neck pain Cardiovascular: Cardiovascular: Reports no additional cardiovascular complaints, Denies chest pain, Denies leg edema and Denies dyspnea Respiratory: Respiratory: Reports no additional respiratory complaints, Denies cough and Denies dyspnea Gastrointestinal: Gastrointestinal: Reports no additional gastrointestinal complaints, Denies abdominal pain, Denies diarrhea, Denies nausea, Denies vomiting and Reports other (rectal pain) Genitourinary: Genitourinary: Denies urinary incontinence Musculoskeletal: Musculoskeletal: Reports no additional musculoskeletal complaints, Denies back pain, Denies arthralgias, Denies joint swelling, Denies neck pain, Denies numbness and Denies tingling Integumentary/Breasts: Skin/Breast: Reports system reviewed and no additional complaints, except as docu and Denies rash Neurologic: Reports system reviewed and no additional complaints, except as documented, Denies Abnormal speech present, Denies dizziness, Denies headache(s), Denies numbness, Denies tingling and Denies weakness PMFSH Past Medical History Attestation statement: The following information was validated with the patient. Source: old records reviewed and nursing notes reviewed Medical History Panic attack Bipolar disorder, unspecified Social History Social History Advance Directives: No Advance Directives Information Provided: No Do you have a plan to hurt others: No Plan Physical Exam ED Vital Signs: Vital Signs - 24 hr 07/01/25 10:25 07/01/25 11:40 07/01/25 15:17 Temperature 97.3 F 97.3 F Pulse Rate 97 97 90 Respiratory Rate 20 20 18 Blood Pressure 122/77 122/77 Pulse Oximetry 98 98 100 Oxygen Delivery Method Room Air Room Air 07/01/25 15:19 07/01/25 15:22 07/01/25 15:27 Temperature Pulse Rate 91 95 95 Respiratory Rate 22 H 28 H 23 H Blood Pressure 128/69 130/65 134/70 Pulse Oximetry 100 100 100 Oxygen Delivery Method Room Air 07/01/25 15:31 07/01/25 15:39 07/01/25 15:54 Temperature Pulse Rate 86 86 92 Respiratory Rate 18 18 20 Blood Pressure 130/64 111/68 118/67 Pulse Oximetry 100 100 100 Oxygen Delivery Method BMI result Body Mass Index 31.0 Const General: cooperative, healthy appearing, comfortable and no acute distress Orientation/consciousness: patient oriented x3 Limitations: no limitations HENMT Head: Yes normal to inspection Ears: hearing grossly normal bilaterally General nose exam: Normal external nose present Face and sinus: Yes normal facial exam Mouth: Normal oral and palatal mucosa present Throat: Yes posterior oropharynx normal Eyes General: appearance normal, both eyes and all related structures Pupils: Equal, round and reactive pupils present Neck Neck: Yes normal visual inspection Chest Chest palpation & inspection: normal inspection of the chest Resp Effort & Inspection: normal respiratory effort Auscultation: clear to auscultation bilaterally Cardio Rate: regular rate Rhythm: regular rhythm Peripheral pulses: Peripheral pulses 2+ throughout GI Inspection: Yes normal to inspection Palpation (GI): Soft to palpation and nontender Auscultation: normal bowel sounds Rectal Exam - Male: Yes visual inspection normal Back/Spine/Pelvis Thoracic/Lumbar Spine: thoracic and lumbar spine normal to inspection Skin General skin exam: no rashes or lesions noted Neuro General: patient oriented x3, no focal motor deficits and normal sensation to monofilament Cranial nerves: Yes Equal, round and reactive pupils present Cognition (Neuro): normal cognition Speech: No Abnormal speech present Gait exam (Neuro): Normal gait present Motor exam (neuro): 5/5 motor strength present throughout Extrem General: Yes normal to inspection Course Course Course Narrative: 1500-general surgery came to the bedside and performed an incision and drainage under moderate sedation. The patient was provided with pain control postprocedure, oral antibiotic. He will be discharged home with Augmentin b.i.d. for 10 days with recommendations to follow up next week in the office with general surgery and to perform Sitz bath. We discussed wound care with the operating room specialist. Reviewed worrisome signs and symptoms of when to return to the emergency room. Comfortable plan for discharge home Medications Administered Discontinued Medications Generic Name Dose Route Start Last Admin Trade Name Freq PRN Reason Stop Dose Admin Amoxicillin/Clavulanate Potassium 875 mg 07/01/25 14:48 07/01/25 15:54 Amoxicillin/Potassium Clav 875 Mg Tablet PO 07/01/25 14:49 875 mg ONCE ONE Administration Sodium Chloride 1,000 mls @ 999 mls/hr 07/01/25 14:49 07/01/25 15:03 Ns IV 07/01/25 15:49 999 mls/hr .Q1H1M STA Administration Iohexol 100 ml 07/01/25 12:40 07/01/25 12:43 Iohexol 350 Mg/Ml 100 Ml Infus..Btl IV 07/01/25 12:41 85 ml ONCE ONE Administration Ketorolac Tromethamine 15 mg 07/01/25 15:42 07/01/25 15:53 Ketorolac Tromethamine 15 Mg/Ml Vial IVPUSH 07/01/25 15:43 15 mg ONCE ONE Administration Lidocaine/Epinephrine 10 ml 07/01/25 14:48 07/01/25 15:03 Lidocaine Hcl 1%/Epi 1:100,000 10 Ml Vial INFILTRATI 07/01/25 14:49 10 ml ONCE ONE Administration Midazolam HCl 2.5 mg 07/01/25 14:49 07/01/25 15:02 Midazolam Hcl 5 Mg/Ml Vial IVPUSH 07/01/25 14:50 2.5 mg ONCE ONE Administration Midazolam HCl 2.5 mg 07/01/25 15:43 07/01/25 15:27 Midazolam Hcl 5 Mg/Ml Vial IVPUSH 07/01/25 15:44 2.5 mg ONCE ONE Administration Morphine Sulfate 4 mg 07/01/25 15:14 07/01/25 15:16 Morphine Sulfate 4 Mg/Ml Cartridge IVPUSH 07/01/25 15:15 4 mg ONCE ONE Administration Protocol Oxycodone HCl 5 mg 07/01/25 15:42 07/01/25 15:54 Oxycodone Hcl Immed Release 5 Mg Tablet PO 07/01/25 15:43 5 mg ONCE ONE Administration Procedures Procedural Sedation Indication: incision and drainage of abscess ASA Class: I Mallampati Class: I Time of Last PO Intake: 08:00 Preparation: quality assurance monitor final applied, pulse oximeter, capnometry used, supplemental O2 applied, reversal agents at bedside, suction/airway equipment at bedside and IV secured Midazolam: IV Midazolam dose (mg): 5 Patient Tolerated Procedure: well Complications: none Medical Decision Making Medical Decision Making [facility] Narrative: 40-year-old male with a history of anxiety, depression, chronic back pain, GERD presents the ER with complaints of rectal pain and pressure for the last 2 days. Patient denies any associated drainage, fevers, chills, constipation, straining, abdominal pain, vomiting. Patient was seen at urgent care and referred into the emergency room to rule out a perirectal abscess. External visual inspection of the rectal area is normal. Patient refused a rectal exam. Per report from the urgent care provider the patient had quite a bit of tenderness during the rectal exam Therefore will obtain labs, UA and a CT pelvis with IV contrast Differential Diagnosis Differential Diagnoses: The differential diagnosis associated with the presentation includes Hemorrhoid, perirectal abscess, prostatitis Low suspicion for Aniya Admission/Observation Consideration of admission/observation: Escalation of care including admission/observation considered Consult Healthcare Provider Management of the patient was discussed with: [employer] Lab Data [facility] Lab Attestation statement: I reviewed the patient's lab results. 07/01/25 11:19 07/01/25 11:19 Labs: Lab Results 07/01/25 Range/Units 11:19 WBC 15.5 H (4.8-10.8) X10*3/uL RBC 4.59 L (4.60-5.80) X10*6/uL Hgb 14.9 (14.0-18.0) g/dl Hct 41.4 L (42.0-52.0) % MCV 90.2 (80.0-98.0) fL MCH 32.5 (27.0-33.0) pg MCHC 36.0 (31.0-36.0) g/dl RDW 11.8 (11.0-16.0) % Plt Count 206 (160-400) X10*3/uL MPV 10.3 (9.4-12.4) fL Immature Gran % (Auto) 0.7 H (0.0-0.4) % Neut % (Auto) 65.3 (45-73) % Lymph % (Auto) 20.1 (20-40) % [place] % (Auto) 12.6 H (2-11) % Eos % (Auto) 1.0 (0-4) % Baso % (Auto) 0.3 (0-2) % Lymph # (Auto) 3.1 (1.2-4.9) X10*3/uL [place] # (Auto) 2.0 H (0.1-1.2) X10*3/uL Eos # (Auto) 0.2 (0.0-0.4) X10*3/uL Baso # (Auto) 0.1 (0.0-0.2) X10*3/uL Abs Immat Gran (auto) 0.11 H (0.00-0.03) X10*3/uL Absolute Neuts (auto) 10.1 H (2.0-8.3) x10*3/uL Absolute Nucleated RBC 0.000 (0.0-0.012) X10*3/uL Nucleated RBC % (auto) 0.0 (0.0-0.2) /100WBC Smear Tech's Comments VERIFIED Sodium 140 (135-145) mmol/L Potassium 4.1 (3.3-5.1) mmol/L Chloride 107 (96-108) mmol/L Carbon Dioxide 26 (22-29) mmol/L Anion Gap 11 L (12-20) BUN 14 (9-16) mg/dL Creatinine 1.19 (0.5-1.4) mg/dL Estim Creat Clear Calc 91.2 Estimated GFR > 60 Random Glucose 108 (60-115) mg/dL Calcium 8.7 (8.4-10.2) mg/dL Magnesium 1.9 (1.6-2.6) mg/dL Total Bilirubin 0.3 (0.0-1.0) mg/dL AST 23 (5-37) U/L ALT 32 (0-40) U/L Alkaline Phosphatase 66 (39-117) U/L Total Protein 7.0 (6.5-8.0) g/dL Albumin 4.3 (3.5-5.0) g/dL Urine Color Yellow Urine Appearance Clear Urine pH 6.0 (5.0-9.0) Ur Specific [place] 1.020 (1.005-1.025) Urine Protein Negative (Neg-Trace) mg/dL Urine Glucose (UA) Negative (Negative) mg/dL Urine Ketones Trace (Negative) mg/dL Urine Blood Negative (Negative) Urine Nitrite Negative (Negative) Ur Leukocyte Esterase Negative (Negative) Independent Interpretation I performed an independent interpretation of an: CT Scan Interpretation: I independently viewed the CT scan agree with the radiology report Radiology Impression Discussion of test interpretation with radiology: I have reviewed the radiologist's reading. Radiologist Impression: [address] [address] [address] Scan Report Signed Patient: Vinh Morales MR#: [id number] : 1985 Acct:[id number] Age/Sex: 40 / M ADM Date: 07/01/25 Loc: HO.ED Attending Dr: Ordering Physician: Dominga Krishnamurthy Date of Service: 07/01/25 Procedure(s): CT abdomen pelvis w IV con Accession Number(s): [id number] cc: Jose J Schaefer MD; Dominga Krishnamurthy~ Report Number: [id number]: Total DLP = 703.00 mGy-cm Reason for Exam: concerned for rectal abscess CLINICAL HISTORY: concerned for rectal abscess Exam: Contrast-enhanced CT abdomen and pelvis with multiplanar reformats. Comparison: None. Findings: CT abdomen: Lung bases are clear. Liver is free of focal lesions and ductal dilatation. Gallbladder is unremarkable. Spleen appears unremarkable. Pancreas and adrenal glands appear unremarkable. Kidneys appear unremarkable. No free intraperitoneal fluid or retroperitoneal masses or adenopathy. Abdominal aorta is normal caliber. Bowel loops reveal mild colonic diverticulosis, without CT evidence of diverticulitis. The appendix is unremarkable. CT pelvis: Prostate gland and seminal vesicles are unremarkable. Urinary bladder is free of gross filling defects. No definable perirectal abscess or collection is appreciated. However, posterior to the anus at roughly 6 o'clock position. There is a poorly defined hypodense area or collection measuring up to 3.7 x 2.9 cm AP and transverse dimension (4; 804), and 2.7 cm craniocaudad dimension (7; 62), compatible with a perianal abscess or phlegmon. No supralevator extension. No definable sinus tracts. No other circumscribed collections. No pelvic masses, fluid or adenopathy. Osseous structures reveal no destructive osseous lesions. Impression: 1. Perianal collection at 6 o'clock position measuring up to 3.7 cm, concerning for abscess or phlegmon. This document has been electronically signed by: Brian Taylor MD on 07/01/2025 13:53:35 Critical Care Time Critical Care Time Critical Care Time: Yes Total Critical Care Time: 90 Attestation: Time includes: direct patient care, patient reassessment, coordination of patient care, interpretation of data (laboratory data, pulse oximetry, arterial blood gases and chest xrays), review of patient's medical records, medical consultation and documentation of patient care. Discharge Plan Discharge Clinical Impression: Perianal abscess Patient Disposition: Home, Self-Care Instructions: Abscess (ED), Sitz Bath (DC) Additional Instructions: Warm soaks Prescriptions: New amoxicillin-pot clavulanate 875-125 mg tablet 1 tab PO BID Qty: 20 0RF ibuprofen 600 mg tablet 600 mg PO Q8H PRN (Reason: fever or pain) Qty: 30 0RF oxycodone 5 mg tablet 5 mg PO Q8H PRN (Reason: pain) Qty: 6 0RF Rx Instructions: Partial Fill upon patient request. No Action nicotine (polacrilex) 4 mg gum 4 mg PO Q2H PRN (Reason: Nicotine Cravings) nicotine 21 mg/24 hr patch 24 hour 1 patch topical DAILY pregabalin [Lyrica] 150 mg Capsule 150 mg PO BEDTIME quetiapine 200 mg Tablet 200 mg PO BEDTIME 7 Days Qty: 7 0RF Rx Instructions: Take 2 hours prior to bedtime divalproex [Depakote] 500 mg Tablet,Delayed Release (Dr/Ec) 500 mg PO BID 7 Days Qty: 14 0RF Rx Instructions: take 1 tablet in the morning and 1 tablet at dinner propranolol 40 mg Tablet 40 mg PO BID PRN (Reason: Anxiety) 7 Days Qty: 14 0RF quetiapine 200 mg Tablet 200 mg PO BEDTIME divalproex 500 mg Tablet,Delayed Release (Dr/Ec) 500 mg PO BID Referrals: Marjorie Chen MD [Physician, General Surgery] - 5 days Print Language: [place]
[2025-07-01 11:27] LABS: Appearance Urine Clear; Glucose Urine UA Negative (Negative); Hematocrit 41.4 % (42.0-52.0); Hemoglobin 14.9 g/dl (14.0-18.0); Imm Gran Abs Auto 0.11 X10*3/uL (0.00-0.03); Imm Gran Pct Auto 0.7 % (0.0-0.4); Lymphocytes Absolute Auto 3.1 X10*3/uL (1.2-4.9); MANUAL DIFF FLAG SCAN; Mean Corpuscular HGB Conc 36.0 g/dl (31.0-36.0); Mean Corpuscular Hemoglobin 32.5 pg (27.0-33.0); Mean Corpuscular Volume 90.2 fL (80.0-98.0); NRBC Abs Auto 0.000 X10*3/uL (0.0-0.012); NRBC Pct Auto 0.0 /100WBC (0.0-0.2); PH 6.0 (5.0-9.0); PLT CLUMP 1; Red Blood Count 4.59 X10*6/uL (4.60-5.80); SCAN SMEAR FLAG 1; Specific Gravity - Urine 1.020 (1.005-1.025)
[2025-07-01 11:28] LABS: White Blood Count 15.5 X10*3/uL (4.8-10.8)
[2025-07-01 11:48] LABS: Platelet Count 206 X10*3/uL (160-400)
[2025-07-01 11:53] LABS: Alanine Aminotransferase 32 U/L (0-40); Albumin Level 4.3 g/dL (3.5-5.0); Alkaline Phosphatase 66 U/L (39-117); Anion Gap 11 (12-20); Aspartate Amino Transferase 23 U/L (5-37); Blood Urea Nitrogen 14 mg/dL (9-16); Calcium 8.7 mg/dL (8.4-10.2); Carbon Dioxide 26 mmol/L (22-29); Chloride 107 mmol/L (96-108); Creatinine Clr Calc Pharmacy 91.2; Estimated Glomerular Filt Rate > 60; Magnesium 1.9 mg/dL (1.6-2.6); Potassium 4.1 mmol/L (3.3-5.1); Sodium 140 mmol/L (135-145); Total Protein 7.0 g/dL (6.5-8.0)
[2025-07-01] MEDS: iohexoL 350 MG/ML 100 ML INFUS..BTL IV (12:43)
[2025-07-01] MEDS: Lidocaine HCl 1%/Epi 1:100,000 10 ML VIAL INFILTRATI (15:03)
[2025-07-01] MEDS: oxyCODONE HCl Immed Release 5 MG TABLET PO (15:54)
--- NOTE | 2025-07-01 16:30 | PC.NURSE ---
Pt a/ox4. VSS. Discharge instructions given to patient using welsh thai rib knitter. All questions and concerns addressed to patient's satisfaction. Pt had ride coming to hospital to take him home. Pt understands that he is not able to drive for 24hrs. Verbal understanding received. Pt ambulated to waiting room where ride was waiting for him.
--- NOTE | 2025-07-01 16:41 | PC.NURSE ---
Late entry for 1500: This RN to bedside to administer Versed 2.5mg IV. Dr Mendenhall at bedside. Doc had been consulted regarding need for conscious sedation and stated that she would start with versed only and see if this was enough for the procedure. Pt was unable to tolerate procedure with versed only. Dr Mendenhall gave verbal permission to give the 4 mg morphine that had initially been ordered then cancelled. Once Morphine was given this RN initiated Conscious Sedation proceedures with Respiratory present, CO2 monitoring, suction set up and cardiac monitoring. After 4 of morphine IV and additional lidocaine at abscess site patient remained in severe pain. Additional 2.5 versed given IV with Dr Mendenhall's verbal permission once again. Pt completed proceedure but was never sedated and endured pain throughout. Martiniquais Italian screen plastics scientist was used throughout the procedure. Post procedure patient was axox3 with good gag reflexes and aware of need for a ride home.
--- NOTE | 2025-07-01 18:08 | P.CONGS_ITS ---
History of Present Illness Consult details Consult date: 07/01/25 Reason for consult: other Requesting physician: Nia Riggs Narrative: Patient is a 40-year-old male who has been having several day history of rectal discomfort. He denies any trauma to the area any other issues and has never had any problems like this before. He denies any fever or chills but he has been very uncomfortable. He went to a urgent care center today who advised him to come to the emergency room where he had a CT scan of the abdomen pelvis which showed a 3 cm posterior perianal abscess. Patient speaks [place] Islander and then roving sizer was used for the history physical and procedure Review of Systems 2 Review of Systems: Yes all other systems are reviewed and are negative PMFSH Past Medical History Medical History Panic attack Bipolar disorder, unspecified Social History Social History Advance Directives: No Advance Directives Information Provided: No Do you have a plan to hurt others: No Plan Meds Allergies Allergy/AdvReac Type Severity Reaction Status Date / Time shellfish derived (shellfish) Allergy Unknown Verified 07/01/25 10:31 Home Medications ?Medication ?Instructions ?Recorded ?Confirmed ?Last Taken ?Type nicotine (polacrilex) 4 mg gum 4 mg PO Q2H PRN Nicotin e Cravings 11/26/24 11/26/24 Unknown History nicotine 21 mg/24 hr daily 1 patch topical DAILY nicot ine 11/26/24 11/27/24 Unknown History transdermal patch pregabalin 150 mg capsule (Lyrica) 150 mg PO BEDTIME 0 11/26/24 11/26/24 11/25/24 History divalproex 500 mg tablet,delayed 500 mg PO BID 5 11/27/24 11/26/24 History release quetiapine 200 mg tablet 200 mg PO BEDTIME 11/27/24 0 11/27/24 11/26/24 History Physical Exam 2 Vital Signs: Vital Signs: Last Vital Signs Temp 97.3 F 07/01/25 11:40 Pulse 92 07/01/25 15:54 Resp 20 07/01/25 15:54 BP 118/67 07/01/25 15:54 Pulse Ox 100 10/25/25 15:54 O2 Del Method Room Air 07/01/25 15:19 Oxygen Flow Rate 2 07/01/25 15:27 BMI result Body Mass Index 31.0 Const: General: cooperative, alert, awake, Physically active, acute distress moderate and anxious Nutritional Appearance: average body habitus Cardio: Rate: regular rate Rhythm: regular rhythm GI: Other: Abdomen is benign. On examination of the perirectal area there is no obvious visual changes but at the 6 o'clock position there is a little more fullness and this area is tender to palpation just at the perianal spot. He is too uncomfortable for rectal exam Results Labs 07/01/25 11:19 07/01/25 11:19 Labs: Abnormal lab results 07/01/25 Range/Units 11:19 WBC 15.5 H (4.8-10.8) X10*3/uL RBC 4.59 L (4.60-5.80) X10*6/uL Hct 41.4 L (42.0-52.0) % Immature Gran % (Auto) 0.7 H (0.0-0.4) % [place] % (Auto) 12.6 H (2-11) % [place] # (Auto) 2.0 H (0.1-1.2) X10*3/uL Abs Immat Gran (auto) 0.11 H (0.00-0.03) X10*3/uL Absolute Neuts (auto) 10.1 H (2.0-8.3) x10*3/uL Anion Gap 11 L (12-20) Short CBC 07/01/25 Range/Units 11:19 WBC 15.5 H (4.8-10.8) X10*3/uL Hgb 14.9 (14.0-18.0) g/dl Hct 41.4 L (42.0-52.0) % Plt Count 206 (160-400) X10*3/uL BMP 07/01/25 11:19 Sodium 140 Potassium 4.1 Chloride 107 Carbon Dioxide 26 BUN 14 Creatinine 1.19 Calcium 8.7 Liver Function 07/01/25 Range/Units 11:19 Total Bilirubin 0.3 (0.0-1.0) mg/dL AST 23 (5-37) U/L ALT 32 (0-40) U/L Alkaline Phosphatase 66 (39-117) U/L Albumin 4.3 (3.5-5.0) g/dL Urine 07/01/25 Range/Units 11:19 Urine Color Yellow Urine Appearance Clear Urine pH 6.0 (5.0-9.0) Ur Specific [place] 1.020 (1.005-1.025) Urine Protein Negative (Neg-Trace) mg/dL Urine Glucose (UA) Negative (Negative) mg/dL All other labs normal. Imaging Additional studies: Ordering Physician: Dominga Krishnamurthy Date of Service: 07/01/25 Procedure(s): CT abdomen pelvis w IV con Accession Number(s): [id number] cc: Jose J Schaefer MD; Dominga Krishnamurthy~ Report Number: [id number]: Total DLP = 703.00 mGy-cm Reason for Exam: concerned for rectal abscess CLINICAL HISTORY: concerned for rectal abscess Exam: Contrast-enhanced CT abdomen and pelvis with multiplanar reformats. Comparison: None. Findings: CT abdomen: Lung bases are clear. Liver is free of focal lesions and ductal dilatation. Gallbladder is unremarkable. Spleen appears unremarkable. Pancreas and adrenal glands appear unremarkable. Kidneys appear unremarkable. No free intraperitoneal fluid or retroperitoneal masses or adenopathy. Abdominal aorta is normal caliber. Bowel loops reveal mild colonic diverticulosis, without CT evidence of diverticulitis. The appendix is unremarkable. CT pelvis: Prostate gland and seminal vesicles are unremarkable. Urinary bladder is free of gross filling defects. No definable perirectal abscess or collection is appreciated. However, posterior to the anus at roughly 6 o'clock position. There is a poorly defined hypodense area or collection measuring up to 3.7 x 2.9 cm AP and transverse dimension (4; 804), and 2.7 cm craniocaudad dimension (7; 62), compatible with a perianal abscess or phlegmon. No supralevator extension. No definable sinus tracts. No other circumscribed collections. No pelvic masses, fluid or adenopathy. Osseous structures reveal no destructive osseous lesions. Impression: 1. Perianal collection at 6 o'clock position measuring up to 3.7 cm, concerning for abscess or phlegmon. This document has been electronically signed by: Brian Taylor MD on 07/01/2025 13:53:35 Dictated By: Brian Taylor MD Signed By: <Electronically signed by Brian Taylor MD in OV> 07/01/25 1354 DD/ 52 TD/TT: 07/01/251352 Medical Territory Manager: Assessment and Plan (1) Perianal abscess: Status: Acute Plan 40-year-old male with 6 o'clock position perianal abscess plan to do bedside incision and drainage with conscious sedation. Patient understands and agrees. This was all extensively explained with the [place] Islander roving sizer on video conference. Bleeding infection we are risks as explained and he wishes to proceed. After we will put him on a 10 day course of Augmentin and have him follow up in the office. We will also encourage Sitz baths Procedures Date of Service Date of Service: 07/01/25 Abscess I/D Consent for Procedure: Elective - informed consent obtained Site: venus-rectal Side (if applicable): left (Slightly to the left of midline 6 o'clock position) Sedation/analgesia: midazolam and fentanyl Technique: needle aspiration and incised with #11 blade Amount of fluid (mL): 10 Irrigation: No Packing used?: none
--- NOTE | 2025-07-14 09:26 | PC.NURSE ---
late entry. fluids finished p/t discharge
== END 2025-07-01 16:30 | disposition home or self-care (01) ==
PROVIDERS: Nurse Practitioner Family; Physician Assistant Medical; Emergency Provider Emergency Medicine Emergency Medical Services; PCP Internal Medicine
DX: K61.0 Anal abscess (principal); K62.89 Other specified diseases of anus and rectum; K21.9 Gastro-esophageal reflux disease without esophagitis; Z79.899 Other long term (current) drug therapy
CPT/HCPCS: 10060; 36415; 74177; 80053; 81003; 83735; 85025; 96374; 96375; 96376; 99284; J1885; J2004; J2250; J2270; Q9967

== ENCOUNTER → 2025-07-01 10:41 | Outpatient (BNV) | payer MEDICAID, SELFPAY | PROVIDERS: Emergency Provider Emergency Medicine Emergency Medical Services; PCP Internal Medicine; Visit Provider Radiology Diagnostic Radiology | DX: K61.0 Anal abscess (principal) | CPT/HCPCS: 74177 ==

== ENCOUNTER → 2025-07-01 10:47 | Outpatient (BNV) | payer MEDICAID, SELFPAY | PROVIDERS: Emergency Provider Emergency Medicine Emergency Medical Services; PCP Internal Medicine; Visit Provider Surgery | DX: K61.0 Anal abscess (principal) | CPT/HCPCS: 10060; 99285 ==

== ENCOUNTER 2025-07-31 10:21 | Outpatient (REF) | payer MEDICAID, OTHER, SELFPAY ==
--- OUTSIDE RECORDS SUMMARY | 2025-07-31 09:00 | XMS_ITS | Encounter Summary ---
Author Organization [employer] Address [address] [place] [address] Care Team Providers Care Supervisor Gear Repair Name Role Phone Jose J Schaefer MD Primary Care Prov ider Reason for Visit * Reason Comments bodyaches Encounter Details Date Type Department Care Team ([facility] st Contact Info) Description 07/31/2025 9:00 AM EST Office Visit [facility] [address] [place] [address] Viral illness (Primary Dx); Chills; Foamy urine; [...] 9:01 AM EST documented in this encounter Plan of Treatment Scheduled Orders Name Type Priority Associated Diagnoses Orde r Schedule POCT urinalysis dipstick manually resulted (CPT 86468) Point of Care Testing Routine Foamy urine [...] Blood Count 12.0(H) 4.8 - 10.8 X10*3/uL [facility] Red Blood Count 4.78 4.60 - 5.80 X10*6/uL [facility] Hemoglobin 15.5 14.0 - 18.0 g/dl [facility] Hematocrit 44.3 42.0 - 52.0 % [facility] Mean Corpuscular Volume 92.7 80.0 - 98.0 fL [facility] Mean Corpuscular Hemoglobin 32.4 27.0 - 33.0 pg [facility] Mean Corpuscular HGB Conc 35.0 31.0 - 36.0 g/dl [facility] Red Cell Distribution Width 12.2 11.0 - 16.0 % [facility] Platelet Count 219 160 - 400 X10*3/uL [facility] Mean Platelet Volume 9.7 9.4 - 12.4 fL [facility] Neutrophils Percent Auto 54.2 45 - 73 % [facility] Imm Gran Pct Auto 0.4 0.0 - 0.4 % [facility] Lymphocytes Percent Auto 33.3 20 - 40 % [facility] Monocytes Percent Auto 9.9 2 - 11 % [facility] Eosinophils Percent Auto 1.6 0 - 4 % [facility] Basophils Percent Auto 0.6 0 - 2 % [facility] NRBC Pct Auto 0.0 0.0 - 0.2 /100WBC [facility] Neutrophils Absolute Auto 6.5 2.0 - 8.3 x10*3/uL [facility] Imm Gran Abs Auto 0.05(H) 0.00 - 0.03 X10*3/uL [facility] Lymphocytes Absolute Auto 4.0 1.2 - 4.9 X10*3/uL [facility] Monocytes Absolute Auto 1.2 0.1 - 1.2 X10*3/uL [facility] Eosinophils Absolute Auto 0.2 0.0 - 0.4 X10*3/uL [facility] Basophils Absolute Auto 0.1 0.0 - 0.2 X10*3/uL [facility] NRBC Abs Auto 0.000 0.0 - 0.012 X10*3/uL [facility] Blood Venous blood specimen / Unknown 07/31/2025 10:26 AM EST 07/31/2025 11:01 AM EST us Berenice Alvarez DIRECTOR PERSONAL LAB BLOOD ORDERABLES Final Resu lt Performing Organization Address [facility]/ZIP Co de Phone Number [facility] [address] [place] [phone] * POCT Rapid Influenza B MANRIQUE ID NOW (07/31/2025 9:27 AM EST) Influenza B Negative Negative, Indeterminate [facility] QC Media Lot # [id number] [facility] Lot# Expiration Date [facility] Swab 07/31/2025 9:27 AM EST Berenice Alvarez DIRECTOR PERSONAL POINT OF CARE TEST ENTER/EDIT O RDERABLES Final Result Performing Organization Address [facility] Co de Phone Number [facility] [address] [place] [phone] * POCT Rapid Influenza A MANRIQUE ID NOW (07/31/2025 9:27 AM EST) Influenza A Negative Negative, Indeterminate [facility] QC Media Lot # [id number] [facility] Lot# Expiration Date [facility] Swab 07/31/2025 9:27 AM EST us Berenice Alvarez DIRECTOR PERSONAL POINT OF CARE TEST ENTER/EDIT O RDERABLES Final Result Performing Organization Address [facility] Co de Phone Number [facility] [address] [place] [phone] * POCT Rapid Covid-19 BinaxNOW (07/31/2025 9:26 AM EST) Rapid COVID Ag Negative QC Media Lot # [id number] Lot# Expiration Date 82,426 Swab 07/31/2025 9:26 AM EST Berenice Velazco DIRECTOR PERSONAL POINT OF CARE TEST ENTER/EDIT O RDERABLES Final Result documented in this encounter Visit Diagnoses Diagnosis Viral illness- Primary Unspecified viral infection, in conditions classified elsewhere and of unspecified site Chills Chills (without fever) Foamy urine Other nonspecific finding on examination of urine Gastroesophageal reflux disease without esophagitis Esophageal reflux documented in this encounter Care Teams Supervisor Gear Repair Relationship Specialty Start Date End Date Jose J Schaefer MD [address] [place] [phone] PCP - General Internal Medicine 06/08/24 documented as of this encounter
[2025-07-31 11:10] LABS: MANUAL DIFF FLAG NO
[2025-07-31 11:24] LABS: Hematocrit 44.3 % (42.0-52.0); Hemoglobin 15.5 g/dl (14.0-18.0); Imm Gran Abs Auto 0.05 X10*3/uL (0.00-0.03); Imm Gran Pct Auto 0.4 % (0.0-0.4); Lymphocytes Absolute Auto 4.0 X10*3/uL (1.2-4.9); Mean Corpuscular HGB Conc 35.0 g/dl (31.0-36.0); Mean Corpuscular Hemoglobin 32.4 pg (27.0-33.0); Mean Corpuscular Volume 92.7 fL (80.0-98.0); NRBC Abs Auto 0.000 X10*3/uL (0.0-0.012); NRBC Pct Auto 0.0 /100WBC (0.0-0.2); Platelet Count 219 X10*3/uL (160-400); Red Blood Count 4.78 X10*6/uL (4.60-5.80); White Blood Count 12.0 X10*3/uL (4.8-10.8)
--- OUTSIDE RECORDS SUMMARY | 2025-07-31 12:46 | XMS_ITS | Encounter Summary ---
Author Organization [employer] Address [address] [place] [address] Care Team Providers Care Reconciling Clerk Name Role Phone Jose J Schaefer MD Primary Care Prov ider Reason for Visit * Reason Onset Date Comments Referral 05/31/2025 Encounter Details Date Type Department Care Team ([facility] Contact Info) Description 05/31/2025 Telephone C [facility] [address] [place] [address] Jose J Schaefer MD [address] [place] [address] Referral Social History Tobacco Use Types Packs/Day [...] 12:02 PM EDT Tc from Pat[facility] at [facility] endoscopy requesting for a referral for a customer retention representative , so pt can have a cardiac work up before a upper endoscopy . It is needed expedited Contact Fernando S at [phone] Contact pt when referral is placed at [phone] (uzbek) documented in this encounter Plan of Treatment Not on file documented as of this encounter Visit Diagnoses Not on filedocumented in this encounter Care Teams Reconciling Clerk Relationship Specialty Start Date End Date Jose J Schaefer MD [address] [place] [phone] PCP - General Internal Medicine 06/08/24 documented as of this encounter
--- OUTSIDE RECORDS SUMMARY | 2025-07-31 12:46 | XMS_ITS | Clinical Summary ---
Author Organization [employer] Address [address] [place] [address] Care Team Providers Care Test Cell Technician Name Role Phone Jose J Schaefer [...] times daily. 30 tablet 06/07/20 25 Active polyethylene glycol, PEG, 3350 (MiraLax) 17 GM/SCOOP powderIndicatio ns:Gastroesopha geal reflux disease without esophagitis,Epi gastric pain Take 17 g by mouth Once per day. 510 g 2 5 3:35 PM EST 06/07/20 25 025 Active propranolol (Inderal) 10 MG tabletIndicatio ns:Anxiety Take 1 tablet (10 mg) by mouth if needed in the morning and at bedtime (Anxiety). 60 tablet 1 5 4:05 PM EST 06/07/20 25 025 Active QUEtiapine (SEROquel) 100 MG tabletIndicatio ns:Bipolar 1 disorder (CMS/HCC) (HCC) Take 2 tablets (200 mg) by mouth at bedtime. 60 tablet 1 06/07/20 25 025 Active hydrOXYzine HCl (Atarax) 50 MG tabletIndicatio ns:Anxiety Take 1 tablet (50 mg) by mouth if needed in the morning, at noon, and at bedtime for anxiety. 90 tablet 1 5 4:05 PM EST 06/07/20 25 025 Active divalproex (Depakote ER) 500 MG 24 hr tabletIndicatio ns:Bipolar 1 disorder (CMS/HCC) (HCC) TAKE TWO TABLETS TWICE DAILY IN THE MORNING AND AT BEDTIME, DO NOT BREAK, CRUSH, DISSOLVE OR CHEW 120 tablet 1 5 4:05 PM EST 06/07/20 25 Active nicotine polacrilex (Nicorette) 4 [...] mouth 2 times daily. 01/05/20 25 Active acetaminophen (Tylenol Extra Strength) 500 MG tabletIndicatio ns:Chills Take 2 tablets (1,000 mg) by mouth every 6 (six) hours if needed for mild pain for up to 10 days. 42 tablet 07/31/20 25 025 Active pantoprazole (Protonix) 40 MG EC tabletIndicatio ns:Gastroesopha geal reflux disease without esophagitis Take 1 tablet (40 mg) by mouth before breakfast. Do not crush, chew, or split. 30 tablet 11 07/31/20 026 Active pantoprazole (Protonix) 40 MG EC tabletIndicatio ns:Gastroesopha geal reflux disease without esophagitis Take 1 tablet (40 mg) by mouth before breakfast. Do not crush, chew, or split. 30 tablet 11 06/07/20 025 Discontinued(Re order (will not trigger notification to Pharmacy)) Active Problems Problem Noted Date Diagnosed Date Back pain 07/01/2025 Perianal pain 07/01/2025 Assessment & Plan (07/01/2025 12:52 PM EDT): From rectal exam there is intense pain w examination from outside and when digital exam , there is no blood nor discharge in glove, noted some old small external hemorrhoids not tender w palpation, no internal hemorrhoids palpated nor masses , normal rectal tone. There is intense pain w palpation between anal sphincter and tip of coccyx w apparent induration underneath ,no fluctuation , normal skin noted , no increase skin temperature nor redness noted,no crepitants . I dont think his intense pain is associated w hemorrhoids not obvious on exam Will need to r/o other pathologies as abscess ,will need CT scan , from [place] no fever but he is tachycardic And need pain control Pt agreed today to go to ED [facility] to get evaluation and STAT image I called [facility] ER and informed about pt going -pt states dont need EMS Epigastric pain 03/01/2025 Assessment & Plan (03/01/2025 9:13 AM EDT): Will refer to gastroenterology, continue PPI, lifestyle modifications reviewed Gastroesophageal reflux disease without esophagi tis 01/25/2025 Assessment & Plan (01/25/2025 9:44 AM EDT): Lifestyle modifications discussed, will start on omeprazole, call back if not improving Benzodiazepine abuse (CMS/HCC) 01/03/2025 Bipolar 1 disorder (CMS/HCC) 11/29/2024 Anxiety 11/29/2024 Adjustment disorder with anxious [...] BH/psych therapy locally, he refers has a malagasy psychiatrist, refers he will get prescription delivered from [facility]. I made clear with educational sign language interpreter as help that the best option would be to be followed locally for his mental conditions, also I made clear that if he will receive services from a psychiatrist in [place] and he needs the prescription from me [...] Encounters Date Type Department Care Team Description 07/31/2025 9:00 AM EST Office Visit [facility] [address] [place] [phone] Viral illness (Primary Dx); Chills; Foamy urine; Gastroesophageal reflux disease without esophagitis 07/31/[address] [facility] [address] [place] [phone] Jose J Schaefer MD call back requested 07/31/2025 Travel 07/21/[address] [facility] [address] [place] [address] Jose J Schaefer MD 07/01/2025 9:00 AM EDT Office Visit [facility] [address] [place] [phone] Mary Christensen MD Chronic back pain, unspecified back location, unspecified back pain laterality (Primary Dx); Perianal pain 07/01/2025 Orders Only GENERIC EXTERNAL DATA DEPARTMENT Provider, Generic External Data 07/01/2025 Travel 06/27/[address] [facility] [address] [place] [address] Jose J Schaefer MD Med Refill; Referral 06/19/[address] [facility] [address] [place] [address] Jose J Schaefer MD Change PCP 06/07/2025 Orders Only [facility] [address] [place] [address] Jose J Schaefer MD Anxiety; Bipolar 1 disorder (CMS/HCC) ([facility]); Tobacco use disorder 06/07/[address] [facility] [address] [place] [address] Jose J Schaefer MD Gastroesophageal reflux disease without esophagitis; Epigastric pain; Chronic midline low back pain without sciatica 06/02/2025 Orders Only [facility] [address] [place] [address] Jose J Schaefer MD Chest pain, unspecified type (Primary Dx) 06/02/[address] [facility] [address] [place] [address] Jose J Schaefer MD Tobacco use disorder 06/01/[address] [facility] [address] [place] [address] Jose J Schaefer MD 05/31/[address] [facility] [address] [place] [address] Jose J Schaefer MD Referral 05/26/[address] [facility] [address] [place] [address] Faviola Fung MD Bipolar 1 disorder (CMS/HCC) 05/18/[address] [facility] [address] [place] [address] Jose J Schaefer MD 05/18/[address] [facility] [address] [place] [address] Jose J Schaefer MD Med Refill from [...] Mass Index 31.84 07/31/2025 9:01 AM EST Plan of Treatment Health Maintenance Due Date [...] 04/13/2025 04/13/2024, 04/13/20 SDOH Screening 04/29/2025 04/29/2024 COVID-19 Vaccine ( - season) 2025 06/02/2024, 09/30/2021, 05/25/2021, Additional history exists Influenza Vaccine (#1) 2025 06/02/2024 Tobacco Screening 07/01/2026 07/01/2025 Lipid Panel 04/29/2029 04/29/2024 Zoster Vaccines (1 of 2) 2035 RSV Patients and Patients Aged 60 years or older (1 - 1-dose 75+ series) 02/01/2060 Meningococcal Vaccine Aged Out 03/24/1990, 990 No longer eligible based on patient's age to complete this topic HIV Screening Completed 04/29/2024 Hepatitis C Screening Completed 04/29/2024 Hepatitis B Vaccines Completed 06/02/2024, 12/17/2023, [...] ANTIGEN Routine 07/31/2025 9:[address] ABDOMEN PELVIS W CONTRAST Routine 07/01/2025 1:53 PM EDT MAGNESIUM Routine 07/01/2025 11:19 AM EDT COMPREHENSIVE METABOLIC PANEL Routine 07/01/2025 11:19 AM EDT SLIDE REVIEW Routine 07/01/2025 11:19 AM EDT CBC WITH AUTO DIFFERENTIAL Routine 07/01/2025 11:19 AM EDT URINALYSIS WITH REFLEX MICROSCOPIC Routine 07/01/2025 11:19 AM EDT HEPATITIS PANEL, GENERAL Routine 04/29/2024 12:27 PM EDT Healthcare maintenance HIV 1/2 ANTIGEN/ANTIBODY, FOURTH GENERATION W/RFL Routine 04/29/2024 12:27 PM EDT Healthcare maintenance LIPID PANEL, STANDARD Routine 04/29/2024 12:27 PM EDT Healthcare maintenance from Last 3 Months or Most Recently Relevant to Health Maintenance Results * (ABNORMAL) CBC auto differential (07/31/2025 10:26 AM EST) Only the most recent of2 resultswithin the time period is included. White Blood Count 12.0(H) 4.8 - 10.8 X10*3/uL [facility] Red Blood Count 4.78 4.60 - 5.80 X10*6/uL [facility] Hemoglobin 15.5 14.0 - 18.0 g/dl [facility] Hematocrit 44.3 42.0 - 52.0 % [facility] Mean Corpuscular Volume 92.7 80.0 - 98.0 fL [facility] Mean Corpuscular Hemoglobin 32.4 27.0 - 33.0 pg [facility] Mean Corpuscular HGB Conc 35.0 31.0 - 36.0 g/dl [facility] Red Cell Distribution Width 12.2 11.0 - 16.0 % [facility] Platelet Count 219 160 - 400 X10*3/uL [facility] Mean Platelet Volume 9.7 9.4 - 12.4 fL [facility] Neutrophils Percent Auto 54.2 45 - 73 % [facility] Imm Gran Pct Auto 0.4 0.0 - 0.4 % [facility] Lymphocytes Percent Auto 33.3 20 - 40 % [facility] Monocytes Percent Auto 9.9 2 - 11 % [facility] Eosinophils Percent Auto 1.6 0 - 4 % [facility] Basophils Percent Auto 0.6 0 - 2 % [facility] NRBC Pct Auto 0.0 0.0 - 0.2 /100WBC [facility] Neutrophils Absolute Auto 6.5 2.0 - 8.3 x10*3/uL [facility] Imm Gran Abs Auto 0.05(H) 0.00 - 0.03 X10*3/uL [facility] Lymphocytes Absolute Auto 4.0 1.2 - 4.9 X10*3/uL [facility] Monocytes Absolute Auto 1.2 0.1 - 1.2 X10*3/uL [facility] Eosinophils Absolute Auto 0.2 0.0 - 0.4 X10*3/uL [facility] Basophils Absolute Auto 0.1 0.0 - 0.2 X10*3/uL [facility] NRBC Abs Auto 0.000 0.0 - 0.012 X10*3/uL [facility] Blood Venous blood specimen / Unknown 07/31/2025 10:26 AM EST 07/31/2025 11:01 AM EST us Berenice Velazco NP LAB BLOOD ORDERABLES Final Resu lt [facility] [address] [place] [address] [phone] * POCT Rapid Influenza B MANRIQUE ID NOW (07/31/2025 9:27 AM EST) Influenza B Negative Negative, Indeterminate [facility] QC Media Lot # [id number] [facility] Lot# Expiration Date [facility] Swab 07/31/2025 9:27 AM EST us Berenice Appram PAPER FEEDER POINT OF CARE TEST ENTER/EDIT O RDERABLES Final Result Performing Organization Address [facility] Co de Phone Number [facility] [address] [place] [phone] * POCT Rapid Influenza A MANRIQUE ID NOW (07/31/2025 9:27 AM EST) Influenza A Negative Negative, Indeterminate [facility] QC Media Lot # [id number] [facility] Lot# Expiration Date [facility] Swab 07/31/2025 9:27 AM EST us Berenice Appram PAPER FEEDER POINT OF CARE TEST ENTER/EDIT O RDERABLES Final Result Performing Organization Address [facility] de Phone Number [facility] [address] [place] [phone] * POCT Rapid Covid-19 BinaxNOW (07/31/2025 9:26 AM EST) Rapid COVID Ag Negative QC Media Lot # [id number] Lot# Expiration Date 82,426 Swab 07/31/2025 9:26 AM EST us Berenice Appram PAPER FEEDER POINT OF CARE TEST ENTER/EDIT O RDERABLES Final Result * CT Abdomen Pelvis w/ Contrast (07/01/2025 1:53 PM EDT) Anatomical Region Laterality Modality Body, Pelvis, Abdomen Computed T omography 07/01/2025 1:53 PM EDT Narrative 07/01/2025 1:55 PM EDT [address] [place] [address] CT Scan Report Signed Patient: Vinh Morales MR#: Lacy [id number] : 1985 Acct:[id number] Age/Sex: 40 / M ADM Date: 07/01/25 Loc: HO.ED Attending Dr: Ordering Physician: Dominga Krishnamurthy Date of Service: 07/01/25 Procedure(s): CT abdomen pelvis w IV con Accession Number(s): [id number] cc: Jose J Schaefer MD; Dominga Krishnamurthy Report Number: [id number]: Total DLP = 703.00 mGy-cm Reason for Exam: concerned for rectal abscess CLINICAL HISTORY: concerned for rectal abscess Exam: Contrast-enhanced CT abdomen and pelvis with multiplanar reformats. Comparison: None. Findings: CT abdomen: Lung bases are clear. Liver is free of focal lesions and ductal dilatation. Gallbladder is unremarkable. Spleen appears unremarkable. Pancreas and adrenal glands appear unremarkable. Kidneys appear unremarkable. No free intraperitoneal fluid or retroperitoneal masses or adenopathy. Abdominal aorta is normal caliber. Bowel loops reveal mild colonic diverticulosis, without CT evidence of diverticulitis. The appendix is unremarkable. CT pelvis: Prostate gland and seminal vesicles are unremarkable. Urinary bladder is free of gross filling defects. No definable perirectal abscess or collection is appreciated. However, posterior to the anus at roughly 6 o'clock position. There is a poorly defined hypodense area or collection measuring up to 3.7 x 2.9 cm AP and transverse dimension (4; 804), and 2.7 cm craniocaudad dimension (7; 62), compatible with a perianal abscess or phlegmon. No supralevator extension. No definable sinus tracts. No other circumscribed collections. No pelvic masses, fluid or adenopathy. Osseous structures reveal no destructive osseous lesions. Impression: 1. Perianal collection at 6 o'clock position measuring up to 3.7 cm, concerning for abscess or phlegmon. This document has been electronically signed by: Brian Taylor MD on 07/01/2025 13:53:35 Dictated By: Brian Taylor MD Signed By: <Electronically signed by Brian Taylor MD in OV> 07/01/25 1354 DD/ 1353 TD/TT: 07/01/25 1353 Air Duct Mechanic: Procedure Note Donotuseinterpreter, Image - 07/01/[address] [address] [address] Scan Report Signed Patient: Hunter Morales#: M [id number] : 1985Acct:[id number] Age/Sex: 40 / MADM Date: 07/01/25 Loc: HO.ED Attending Dr: Ordering Physician: Dominga Krishnamurthy Date of Service: 07/01/25 Procedure(s): CT abdomen pelvis w IV con Accession Number(s): [id number] cc: Jose J Schaefer MD; Dominga Krishnamurthy Report Number: [id number]: Total DLP = 703.00 mGy-cm Reason for Exam: concerned for rectal abscess CLINICAL HISTORY: concerned for rectal abscess Exam: Contrast-enhanced CT abdomen and pelvis with multiplanar reformats. Comparison: None. Findings: CT abdomen: Lung bases are clear. Liver is free of focal lesions and ductal dilatation. Gallbladder is unremarkable. Spleen appears unremarkable. Pancreas and adrenal glands appear unremarkable. Kidneys appear unremarkable. No free intraperitoneal fluid or retroperitoneal masses or adenopathy. Abdominal aorta is normal caliber. Bowel loops reveal mild colonic diverticulosis, without CT evidence of diverticulitis. The appendix is unremarkable. CT pelvis: Prostate gland and seminal vesicles are unremarkable. Urinary bladder is free of gross filling defects. No definable perirectal abscess or collection is appreciated. However, posterior to the anus at roughly 6 o'clock position. There is a poorly defined hypodense area or collection measuring up to 3.7 x 2.9 cm AP and transverse dimension (4; 804), and 2.7 cm craniocaudad dimension (7; 62), compatible with a perianal abscess or phlegmon. No supralevator extension. No definable sinus tracts. No other circumscribed collections. No pelvic masses, fluid or adenopathy. Osseous structures reveal no destructive osseous lesions. Impression: 1. Perianal collection at 6 o'clock position measuring up to 3.7 cm, concerning for abscess or phlegmon. This document has been electronically signed by: Brian Taylor MD on 07/01/2025 13:53:35 Dictated By: Brian Taylor MD Signed By: <Electronically signed by Brian Taylor MD in OV> 07/01/25 1354 DD/ 1353 TD/TT: 07/01/25 135 Air Duct Mechanic: [facility] External Provider IMG CT PROCEDURES Edited Result - Final * Slide Review (07/01/2025 11:19 AM EDT) Slide Review VERIFIED [facility] 07/01/2025 11:1 9 AM EDT 07/01/2025 11:22 AM EDT Generic External Data Provider LAB BLOOD ORDERAB LES Final Result Performing Organization Address [facility] Co de Phone Number [facility] [address] [place] [phone] * Urinalysis w/reflex microscopic (07/01/2025 11:19 AM EDT) Color Urine Yellow [facility] Appearance Urine Clear [facility] PH 6.0 5.0 - 9.0 [facility] Glucose Urine UA Negative Negative mg/dL [facility] Urine Blood Negative Negative [facility] Specific [place] - Urine 1.020 1.005 - 1.025 [facility] Urine Protein Negative Neg-Trace mg/dL [facility] Urine Ketones Trace Negative mg/dL [facility] Nitrite Urine Negative Negative [facility] Leukocyte Esterase Urine Negative Negative [facility] 07/01/2025 11:1 9 AM EDT 07/01/2025 11:22 AM EDT Narrative [facility] - 07/01/2025 11:27 AM EDT Urine, Clean Catch Generic External Data Provider LAB URINE ORDERAB LES Final Result Performing Organization Address City/[facility]/ZIP Co de Phone Number [facility] [address] [place] [phone] [phone] * Magnesium (07/01/2025 11:19 AM EDT) Magnesium 1.9 1.6 - 2.6 mg/dL [facility] 07/01/2025 11:1 9 AM EDT 07/01/2025 11:22 AM EDT us Generic External Data Provider LAB BLOOD ORDERAB LES Final Result [facility] [address] [place] [address] [phone] * (ABNORMAL) Comprehensive Metabolic Panel (07/01/2025 11:19 AM EDT) Pathologist [facility] Sodium 140 135 - 145 mmol/L [facility] Potassium 4.1 3.3 - 5.1 mmol/L [facility] Chloride 107 96 - 108 mmol/L [facility] Carbon Dioxide 26 22 - 29 mmol/L [facility] Anion Gap 11(L) 12 - 20 [facility] Urea Nitrogen (BUN) 14 9 - 16 mg/dL [facility] Creatinine, Serum 1.19 0.5 - 1.4 mg/dL [facility] Creatinine Clr Calc Pharmacy 91.2 [facility] Comment:eGFR (calculated fro m the MDRD study equation) and eCrCl(calculated from the Cockcroft-Gault equation) are based ondifferent parameters and may not yield comparable results.If eCrCl result is absurd, please check patient'sheight/weight. Estimated Glomerular Filt Rate >60 [facility] Comment:Chronic Kidney Disea se: Estimated GFR < 60 mL/min/1.25o3Zbasjd Kidney Disease: Estimated GFR < 15 mL/min/1.73m2 Glucose 108 60 - 115 mg/dL [facility] Calcium 8.7 8.4 - 10.2 mg/dL [facility] Bilirubin, Total 0.3 0.0 - 1.0 mg/dL [facility] Aspartate Amino Transferase 23 5 - 37 U/L [facility] Alanine Aminotransferase 32 0 - 40 U/L [facility] Total Protein 7.0 6.5 - 8.0 g/dL [facility] Albumin Level 4.3 3.5 - 5.0 g/dL [facility] Alkaline Phosphatase 66 39 - 117 U/L [facility] 07/01/2025 11:1 9 AM EDT 07/01/2025 11:22 AM EDT Generic External Data Provider LAB BLOOD ORDERAB LES Final Result Performing Organization Address [facility]/ZIP Co de Phone Number [facility] [address] [place] [address] [phone] * Hepatitis A,B,C Profile (04/29/2024 12:27 PM EDT) Hepatitis A IgM Nonreactive Nonreactive [facility] Comment:IgM antibodies to PHAM V not detected; does not exclude earlyacute or recovered HAV infection. ~Hepatitis B Surface Antibody REACTIVE Nonreactive [facility] Comment:REACTIVE: > 11.99 mI U/mL Hepatitis B Core Antibody Nonreactive Nonreactive [facility] Hepatitis C Antibody Nonreactive Nonreactive [facility] Comment:Antibodies to HCV no t detected; does not exclude early acuteHCV infection. Hepatitis B Surface Ag Negative Negative [facility] Blood Venous blood specimen / Unknown 04/29/2024 12:27 PM EDT 04/29/2024 1:15 PM EDT [facility] [employer] LAB BLOOD ORDERABLES Final Re sult Performing Organization Address [facility]/ZIP Co de Phone Number [facility] [address] [place] [address] [phone] * HIV-1/2 Antigen and Antibodies, Fourth Generation, with Reflexes (04/29/2024 12:27 PM EDT) HIV AB/AG Nonreactive Nonreactive [facility] Comment:HIV-1 p24 Ag and/or HIV-1/HIV-2 Ab not detected.A test result that is nonreactive does not exclude thepossibility of exposure to or infection with HIV-1 and/orHIV-2. Nonreactive results in this assay for individualswith prior exposure to HIV-1 and/or HIV-2 may be due toantigen and antibody levels that are below the limit ofdetection of this assay.The [email or web address] HIV Ag/Ab Combo assay result andsupplemental assay results should be interpreted inconjunction with the patient's clinical presentation,history and other laboratory results. If the results areinconsistent with clinical evidence, additional testing issuggested to confirm the result. Blood Venous blood specimen / Unknown 04/29/2024 12:27 PM EDT 04/29/2024 1:15 PM EDT [facility] LAB BLOOD ORDERABLES Final Re sult [facility] [address] [place] [address] [phone] * (ABNORMAL) Lipid Panel, Standard (04/29/2024 12:27 PM EDT) Triglycerides 95 <150 mg/dL [facility] Comment:Desirable Triglyceri de: less than 150 mg/dLBorderline High Triglyceride 150-199 mg/dLHigh Triglyceride: 200-499 mg/dLVery High Triglyceride: greater than or equal to 5OO mg/dL Cholesterol 190 <200 mg/dL [facility] Comment:Desirable Cholestero l: less than 200 mg/dLBorderline High Cholesterol: 200-239 mg/dLHigh Cholesterol: greater than 239 mg/dL LDL Cholesterol Calculated 128(H) <100 mg/dL [facility] Comment:Desirable LDL: less than 100 mg/dLNear Optimal/Above Optimal LDL: 110- 129 mg/dLBorderline High LDL: 130-159 mg/dLHigh LDL: 160-189 mg/dLVery High LDL: greater than or equal to 190 mg/dL HDL Cholesterol 43 >40 mg/dL [facility] Comment:Desirable HDL: great er than 40 mg/dL Note: This HDL assay may give artificially low results in patients with liver disease. Blood Venous blood specimen / Unknown 04/29/2024 12:27 PM EDT 04/29/2024 1:15 PM EDT [facility] [employer] LAB BLOOD ORDERABLES Final Re sult [facility] [address] [place] [address] [phone] from Last 3 Months or Most Recently Relevant to Health Maintenance Insurance [facility] ADULT DENTAL - HSN FULL (MEDICAID) Care Teams Test Cell Technician Relationship Specialty Start Date End Date Jose J Schaefer MD [address] [place] [phone] PCP - General Internal Medicine 06/08/24
--- OUTSIDE RECORDS SUMMARY | 2025-07-31 12:46 | XMS_ITS | Encounter Summary ---
Author Organization [facility] Address [address] [place] [address] Care Team Providers Care Hydrodynamics Teacher Name Role Phone Jose J Schaefer MD Primary Care Prov ider Reason for Referral * Consultation (Routine) - Authorized Specialty Diagnoses / Procedures Referred By Carlos t Referred To Contact Gastroenterology Diagnoses Epigastric pain Jose J Schaefer MD [address] [place] [address] Phone: tel: fax: Madisyn Lira MD [address] [place] [address] [place] [address] Phone: tel: fax: Referral ID Status Reason Start Date Expiration Date Visits Requested Visits Authorized [id number] Authorized Specialty Services Required 03/20/2025 04/20/2026 6 6 Encounter Details Date Type Department Care Team (Latest Contact Info) Description 03/20/2025 Transcribe Orders [facility] Physician Referral Services [address] [place] [address] Jose J Schaefer MD [address] [place] [address] Epigastric pain (Primary Dx) Social History Tobacco [...] Care Team (Late st Contact Info) Description 08/14/2025 2:00 PM EST Appointment [facility] [address] [place] [phone] Jignesh Hummel MD [address] [place] [phone] 08/22/2025 1:30 PM EST Appointment [facility] Cardiac Ultrasound [address] [place] [address] 08/22/2025 2:30 PM EST Appointment [facility] ACC Building Heart Station [address] [place] [address] Scheduled Referrals Name Type Priority Associated Diagnoses Order Schedule Ambulatory referral to Gastroenterology Outpatient Referral Routine Epigastric pain Expected: 03/20/2025, Expires: 04/20/2026 documented as of this encounter Visit Diagnoses Diagnosis Epigastric pain- Primary Abdominal pain, epigastric documented in this encounter Care Teams Hydrodynamics Teacher Relationship Specialty Start Date End Date Jose J Schaefer MD [address] [place] [id number] PCP - General Internal Medicine 03/01/25 documented as of this encounter
--- OUTSIDE RECORDS SUMMARY | 2025-07-31 12:46 | XMS_ITS | Encounter Summary ---
Author Organization [employer] Address [address] 7[address] [place] [address] Care Team Providers Care Cushion Padder Name Role Phone Jose J Schaefer MD Primary Care Prov ider Reason for Visit * Reason Onset Date Comments call back requested 07/31/2025 Encounter Details Date Type Department Care Team ([facility] Contact Info) Description 07/31/2025 Telephone [facility] MEDICINE [address] [place] [address] Jose J Schaefer MD [address] [place], [place] [phone] call back requested Social History Tobacco Use Types Packs/Day Years [...] encounter Miscellaneous Notes * Telephone Encounter - Ellie Carlos - 07/31/2025 10:51 AM EST TC from pt requesting a call back pt stated is tacking 2 pills of Pantoprazole. And insurance will not pay for medication until September. Pt pickle pumper medication on 06/07 for a [address] Giles documented in this encounter Plan of Treatment Not on file documented as of this encounter Visit Diagnoses Not on filedocumented in this encounter Care Teams Cushion Padder Relationship Specialty Start Date End Date Jose J Schaefer MD [address] [place] [id number] PCP - General Internal Medicine 06/08/24 documented as of this encounter
--- OUTSIDE RECORDS SUMMARY | 2025-07-31 12:46 | XMS_ITS | Encounter Summary ---
Author Organization [employer] Address [address] 7[address] [place] [address] Care Team Providers Care Customer Acquisition Specialist Name Role Phone Jose J Schaefer MD Primary Care Prov ider Encounter Details Date Type Department Care Team (Late st Contact Info) Description 06/07/2025 Orders Only [facility] MED & PEDS [address] [place] [address] Jose J Schaefer MD [address] [place] [address] Anxiety; Bipolar 1 disorder (CMS/HCC) (HCC); Tobacco [...] disorder documented in this encounter Care Teams Customer Acquisition Specialist Relationship Specialty Start Date End Date Jose J Schaefer MD [address] [place] [phone] PCP - General Internal Medicine 06/08/24 documented as of this encounter
--- OUTSIDE RECORDS SUMMARY | 2025-07-31 12:46 | XMS_ITS | Clinical Summary ---
Author Organization [facility] Address [address] [place] [address] Care Team Providers Care Sample Finisher Name Role Phone Jose J Schaefer MD Primary Care Prov ider Allergies No known active allergies Medications divalproex ER (DEPAKOTE ER) 500 mg tablet Take 500 mg by mouth 2 (two) times a day. Active propranoloL (INDERAL) 10 mg tablet Take 10 mg by mouth 2 times daily as needed. 03/01/2025 Active simethicone (MYLICON) 80 mg chewable tablet Chew and swallow 80 mg by mouth every 6 hours as needed for flatulence. 02/22/[address] (PROTONIX) 40 mg tablet Take 1 tablet (40 mg total) by mouth 2 times a day. 60 tablet 2 03/31/2025 Active nicotine polacrilex (NICORETTE) [address] 4 mg between cheek and gums as needed. 06/07/2025 Active Active Problems Problem Noted Date Diagnosed Date Epigastric pain 03/31/2025 Atypical chest pain 03/31/2025 Encounters Date Type Department Care Team Description 07/24/2025 Orders Only [facility] [address] [place] [address] Jignesh Hummel MD HNP (herniated nucleus pulposus), lumbar (Primary Dx) 07/04/2025 10:15 AM EDT Hospital Encounter [facility] [address] [place] [address] Jignesh Hummel MD Lumbar stenosis with neurogenic claudication (Primary Dx) Discharge Disposition: Home or Self Care () 06/22/2025 9:20 AM EDT Office Visit [facility] 4th floor Cardiology Medicine [address] [place] [address] Bag Builder: Andrzej Haile MD Shortness of breath (Primary Dx); Pre-op evaluation 06/21/2025 Transcribe Orders [facility] Physician Referral Services [address] [place] [address] Jose J Schaefer MD Chest pain, unspecified type (Primary Dx) 06/05/2025 3:20 PM EDT Telehealth [facility] A [address] [place] [address] Jacklyn Kelly PA Lumbar stenosis with neurogenic claudication (Primary Dx); Radiculopathy of lumbar region 05/31/2025 11:00 AM EDT - 05/31/2025 11:30 AM EDT Surgery [facility] Endoscopy [address] [place] [phone] Josemanuel Simpson MD PhD UPPER ENDOSCOPY; DIAGNOSTIC WITH BRUSH/WASH (SP) WITH POSSIBLE MODERATE SEDATION [60350 (CPT )] 05/31/2025 10:30 AM EDT - 05/31/2025 12:17 PM EDT Hospital Encounter [facility] Endoscopy [address] [place] [address] Josemanuel Simpson MD PhD Discharge Disposition: Home or Self Care () 05/17/2025 11:55 AM EDT - 05/17/2025 11:59 PM EDT Hospital Encounter [facility] Xray [address] [place] [address] Pain Discharge Disposition: Home or Self Care () 05/17/2025 8:56 AM EDT - 05/17/2025 11:54 AM EDT Hospital Encounter [facility] [address] [place] [address] Jignesh Hummel MD Lumbar stenosis with neurogenic claudication (Primary Dx); Spinal stenosis, lumbar region with neurogenic claudication Discharge Disposition: Home or Self Care (01) 05/16/2025 Prep for Case [facility] Gastroenterology Clinic [address] [place] [address] Bag Builder: Josemanuel Carrillo MD PhD 05/09/2025 Telephone [facility] B [address] [place] [address] Telephone Intake, Staff PAC Test Result Request Dr Hummel from Last 3 Months Social History Tobacco [...] Sign Reading Time Taken Comments Blood Pressure 120/89 07/04/2025 10:29 AM EDT Pulse 97 07/04/2025 10:29 AM EDT Temperature 36.5 C (97.7 F) 05/17/2025 9:19 AM EDT Respiratory Rate 20 06/22/2025 9:37 AM EDT Oxygen Saturation 95% 07/04/2025 10: 29 AM EDT Inhaled Oxygen Concentration - - Weight 94.2 kg (207 lb 10.8 oz) 06/22/2025 9:37 AM EDT Height 175 cm (5' 8.9 ) 05/31/2025 10:5 7 AM EDT Body Mass Index 30.76 05/31/2025 10:57 AM EDT Plan of Treatment Upcoming Encounters Date Type Department Care Team (Late st Contact Info) Description 08/14/2025 2:00 PM EST Appointment [facility] [address] [place] [address] Jignesh Hummel MD [address] [place] [address] 08/22/2025 1:30 PM EST Appointment [facility] Cardiac Ultrasound [address] [place] [address] 08/22/2025 2:30 PM EST Appointment [facility] Building Heart Station [address] [place] [address] Health Maintenance Due Date Last Done Comments [...] Drivers of Health Luann ual Screening 09/07/2024 Influenza Vaccine (#1) 2025 06/02/2024 COVID-19 Vaccine (5 - 2024-2 6 season) 2025 06/02/2024, 09/30/2021, 05/25/2021, Additional history exists Diabetes Screening 07/01/2028 07/01/2025, 1 , 06/22/2025, Additional history exists HIV Screening Completed 04/29/2024, 04/29/2024 Hepatitis B Vaccines Completed 06/02/2024, 12/17/2023, 11/14/2023, Additional history exists Abdominal Aortic Aneurysm (A AA) Screening Completed 07/01/2025 Procedures * Due to [place] [employer] law, this organization might not be sharing [...] Routine 06/22/2025 9:42 AM EDT Pre-op evaluation AL ESOPHAGOGASTRODUODENOSCOP Y TRANSORAL DIAGNOSTIC 05/31/2025 7:00 PM EDT Abdominal pain, epigastric FL C-ARM INJECTION NON-REPORTABLE Routine 05/17/2025 10:12 AM EDT Pain AL INJECT ANES/STEROID TIEN EN LUMBAR/SACRAL W IMG GUIDE ,1 LEVEL Routine 05/17/2025 9:30 AM EDT Lumbar stenosis with neurogenic claudication MRI LUMBAR SPINE WO CONTRAST Routine 9:30 PM EDT Spinal stenosis, lumbar region with neurogenic claudication Degeneration of intervertebral disc of lumbar region with discogenic back pain from Last 3 Months Results * Due to [place] state law, this organization might not be sharing negative HIV tests. * TSH Reflex Free T4 (06/22/2025 10:27 AM EDT) TSH 2.250 0.280 - 3.890 uIU/mL 06/22/2025 11:23 AM EDT [facility] Blood Structure of peripheral vein / Unknown Venipuncture / Unknown 06/22/2025 10:27 AM EDT 06/22/2025 10:47 AM EDT Andrzej Almazan MD LAB BLOOD ORDERABLES Final Result [facility] [address] [place] [address], * (ABNORMAL) Lipid Panel w/Reflex to Direct LDL (06/22/2025 10:27 AM EDT) Cholesterol 219(H) <=199 mg/dL 06/22/2025 11:23 AM EDT [facility] Triglycerides 291(H) <=149 mg/dL 06/22/2025 11:23 AM EDT [facility] Cholesterol, HDL 33(L) 40 - 59 mg/dL 06/22/2025 11:23 AM EDT [facility] Cholesterol, Non-HDL 186 mg/dL 06/22/2025 11:23 AM EDT [facility] LDL Cholesterol 128(H) <100 mg/dL 06/22/2025 11:23 AM EDT [facility] Comment:LDL-C is calculated using the Friedewald calculation. VLDL 58.2 mg/dL 06/22/2025 11:23 AM EDT [facility] Cholesterol/HDL Ratio 6.6(H) <5.0 06/22/2025 11:23 AM EDT [facility] Blood Structure of peripheral vein / Unknown Venipuncture / Unknown 06/22/2025 10:27 AM EDT 06/22/2025 10:47 AM EDT Narrative [facility] - 06/22/2025 11:23 AM [...] Almazan MD LAB BLOOD ORDERABLES Final Result [facility] [address] [place] [address], [place] * Lipoprotein A (LPA) (06/22/2025 10:27 AM EDT) Lipoprotein 18 <75 nmol/L 06/27/2025 2:43 PM EDT [facility] ([facility]) Comment: Risk Category Optimal < 75 nmol/L Moderate 75 - 125 nmol/L High > 125 nmol/L Cardiovascular event risk category cut points (optimal, moderate, high) are based on Oren Clayton JACC 2017;69:692-711. Blood Structure of peripheral vein / Unknown Venipuncture / Unknown 06/22/2025 10:27 AM EDT 06/22/2025 10:47 AM EDT Narrative [facility] - 06/27/2025 2:43 PM EDT [facility] Received Date: Andrzej Almazan MD LAB BLOOD ORDERABLES Final Result [facility] [address] [facility] 3rd Floor, [place] [address], [facility] (ARIEL) [address] [place], [place] , [place] * Hemoglobin A1c (06/22/2025 10:27 AM EDT) Hemoglobin A1C 5.6 <5.7 % 06/23/2025 1:13 PM EDT [employer] Comment: For the purpose of screening for the presence of diabetes: <5.7% Consistent with the absence of diabetes 5.7-6.4% Consistent with increased risk for diabetes (prediabetes) > or =6.5% Consistent with diabetes This assay result is consistent with a decreased risk of diabetes. Currently, no consensus exists regarding use of hemoglobin A1c for diagnosis of diabetes in children. According to [place] Diabetes Association (ADA) guidelines, hemoglobin A1c <7.0% represents optimal control in non- diabetic patients. Different metrics may apply to specific patient populations. Standards of Medical Care in Diabetes(ADA). eAG (MG/DL) 114 mg/dL 06/23/2025 1:13 PM EDT [employer] eAG (MMOL/L) 6.3 mmol/L 06/23/2025 1:13 PM EDT [employer] Blood Structure of peripheral vein / Unknown Venipuncture / Unknown 06/22/2025 10:27 AM EDT 06/22/2025 10:38 AM EDT Narrative [facility] - 06/23/2025 1:13 PM EDT [facility] Received Date: Andrzej Almazan MD LAB BLOOD ORDERABLES Edited Result - Final [facility] [address], [place] [address], [employer] [address], [place] [address], * (ABNORMAL) Comprehensive metabolic panel (06/22/2025 10:27 AM EDT) Pathologist [facility] NA 138 135 - 145 mmol/L 06/22/2025 11:23 AM EDT [facility] K 4.5 3.5 - 5.3 mmol/L 06/22/2025 11:23 AM EDT [facility] Cl 103 97 - 110 mmol/L 06/22/2025 11:23 AM EDT [facility] CO2 26 22 - 32 mmol/L 06/22/2025 11:23 AM EDT [facility] Anion Gap 9 5 - 15 06/22/2025 11:23 AM EDT [facility] Glucose 104(H) 65 - 99 mg/dL 06/22/2025 11:23 AM EDT [facility] Creatinine 1.15 0.60 - 1.30 mg/dL 06/22/2025 11:23 AM EDT [facility] Calcium 9.3 8.6 - 10.5 mg/dL 06/22/2025 11:23 AM Paradigm[facility] Total Protein 6.8 6.0 - 8.0 g/dL 06/22/2025 11:23 AM Paradigm[facility] Albumin 4.1 3.5 - 5.2 g/dL 06/22/2025 11:23 AM EDT [facility] Bilirubin, Total 0.3 0.2 - 1.2 mg/dL 06/22/2025 11:23 AM EDT [facility] Alkaline Phosphatase 61 35 - 129 U/L 06/22/2025 11:23 AM EDT [facility] AST 30 10 - 40 U/L 06/22/2025 11:23 AM EDT [facility] ALT 29 10 - 40 U/L 06/22/2025 11:23 AM EDT [facility] BUN 11 7 - 23 mg/dL 06/22/2025 11:23 AM EDT [facility] eGFR 83 >=60 mL/min/1. 73m2 06/22/2025 11:23 AM [facility] Comment:The estimated glomer ular filtration rate (eGFR) is calculated using a new formula developed by the NKF-ASN task force to eliminate race-based correction factors. [...] - 4.2 g/dL 06/22/2025 11:23 AM EDT [facility] A/G Ratio 1.5 1.5 - 3.0 06/22/2025 11:23 AM EDT [facility] Blood Structure of peripheral vein / Unknown Venipuncture / Unknown 06/22/2025 10:27 AM EDT 06/22/2025 10:47 AM EDT Andrzej Almazan MD LAB BLOOD ORDERABLES Final Result [facility] [address] [place] [address], * ECG 12 lead (06/22/2025 9:42 AM EDT) Ventricular Rate EKG 87 BPM MUSE EKG Atrial Rate 87 BPM MUSE EKG AL Interval 148 ms MUSE EKG QRS Interval 78 ms MUSE EKG QT Interval 342 ms MUSE EKG QTC Interval 411 ms MUSE EKG P G[place]t 13 degrees MUSE EKG R G[place] -11 degrees MUSE EKG T Wave [place] -5 degrees MUSE EKG 06/22/2025 9:42 AM EDT 06/22/2025 11:15 AM EDT Impressions MUSE EKG - 06/22/2025 11:15 AM EDT NORMAL SINUS RHYTHM NORMAL ECG NO PREVIOUS ECGS AVAILABLE Confirmed by Andrzej Almazan ([id number]) on 06/22/2025 11:15:36 AM Narrative Procedure Note Andrzej Almazan MD - 10/16/2025 IMPRESSION: NORMAL SINUS RHYTHM NORMAL ECG NO PREVIOUS ECGS AVAILABLE Confirmed by Andrzej Almazan ([id number]) on 06/22/2025 11:15:36 AM us Andrzej Almazan MD ECG ORDERABLES Final Resul t Performing Organization Address City/[facility] Co de Phone Number MUSE EKG * FL C-Arm Injection Non-Reportable (05/17/2025 10:12 AM EDT) Narrative IMAGING - 05/17/2025 4:38 PM EDT This procedure does not contain a result. Please see the surgeon's note for official report. us Jignesh Hummel MD IMG FLUOROSCOPY PROCEDURES Fin al Result Performing Organization Address [facility] Co de Phone Number IMAGING * AL INJECT ANES/STEROID FORAMEN LUMBAR/SACRAL W IMG GUIDE [...] Patient's understanding of procedure matches consent: Yes Solomon Protocol: Procedure consent matches procedure scheduled: Yes [...] outpatient to the ambulatory injection suite at [facility]. Vital signs were monitored before and after [...] to obtain the completed interpretation. Workstation ID: [id number] Narrative 05/07/2025 4:39 PM EDT INDICATION: Lumbar [...] Bilateral mild foraminal stenosis. Resulting Agency Comment [id number] Procedure Note Aiden Wyatt MD - 05/07/2025 INDICATION: Lumbar radiculopathy, symptoms persist with > 6 wks [id number] - I10 - Spinal stenosis, lumbar region [...] possible to obtain thecompleted interpretation. Workstation ID: [id number] us Jignesh Hummel MD IMG MRI PROCEDURES Final Resul t from Last 3 Months Insurance [place] Care Teams Sample Finisher Relationship Specialty Start Date End Date Jose J Schaefer MD [address] [place] [id number] PCP - General Internal Medicine 03/01/25
--- OUTSIDE RECORDS SUMMARY | 2025-07-31 12:46 | XMS_ITS | Encounter Summary ---
Author Organization [employer] Address [address] [place] [address] Care Team Providers Care Supervisor Securities Vault Name Role Phone Jose J Schaefer MD Primary Care Prov ider Encounter Details Date Type Department Care Team (Latest Contact Info) Description 07/31/2025 Travel Social History Tobacco Use Types Packs/Day [...] on filedocumented in this encounter Care Teams Supervisor Securities Vault Relationship Specialty Start Date End Date Jose J Schaefer MD [address] [place] [id number] PCP - General Internal Medicine 06/08/24 documented as of this encounter
[2025-07-31 16:14] LABS: Alanine Aminotransferase 39 U/L (0-40); Albumin Level 4.5 g/dL (3.5-5.0); Alkaline Phosphatase 73 U/L (39-117); Anion Gap 10 (12-20); Aspartate Amino Transferase 31 U/L (5-37); Blood Urea Nitrogen 22 mg/dL (9-16); Calcium 9.5 mg/dL (8.4-10.2); Carbon Dioxide 29 mmol/L (22-29); Chloride 107 mmol/L (96-108); Estimated Glomerular Filt Rate 53; Potassium 4.6 mmol/L (3.3-5.1); Sodium 141 mmol/L (135-145); Total Protein 7.1 g/dL (6.5-8.0)
[2025-08-01 04:52] LABS: HBS Num1 66.42 mIU/mL (0-7.99); HBc Num1 0.07 S/CO (0.00-0.79); HBsAGNum1 0.42 S/CO (0.00-0.99); Hepatitis A Antibody IgM 0.28 Index (0-0.79); Hepatitis B Surface Antigen Negative (Negative); ~HepC Num1 0.10 S/CO (0.00-0.79); ~Hepatitis A Antibody IgM Nonreactive (Nonreactive); ~Hepatitis B Surface Antibody REACTIVE (Nonreactive); ~Hepatitis C Antibody Nonreactive (Nonreactive)
== END 2025-07-31 10:22 | disposition home or self-care (01) ==
LOC: HO.HHCL 10:21
PROVIDERS: Registered Nurse; PCP Internal Medicine; Visit Provider Nurse Practitioner
DX: Z11.59 Encounter for screening for other viral diseases (principal); R68.83 Chills (without fever); R74.8 Abnormal levels of other serum enzymes
CPT/HCPCS: 36415; 80053; 85025; 86704; 86706; 86709; 86803; 87340

== ENCOUNTER 2025-08-02 08:47 | Outpatient (REF) | payer MEDICAID, OTHER, SELFPAY ==
--- OUTSIDE RECORDS SUMMARY | 2025-07-31 09:00 | XMS_ITS | Encounter Summary ---
Author Organization [employer] Address [address] [place] [address] Care Team Providers Care Cyber Systems Administrator Name Role Phone Jose J Schaefer MD Primary Care Prov ider Reason for Visit * Reason Comments bodyaches Encounter Details Date Type Department Care Team ([facility] st Contact Info) Description 07/31/2025 9:00 AM EST Office Visit [facility] [address] [place] [address] Viral illness (Primary Dx); Chills; Foamy urine; Gastroesophageal reflux disease without esophagitis Social History Tobacco Use Types Packs/Day Years [...] Sign Reading Time Taken Comments Blood Pressure 128/89 07/31/2025 9:01 AM EST Pulse 98 07/31/2025 9:01 AM EST Temperature 37.2 C (99 F) 07/31/2025 9:01 AM EST Respiratory Rate 23 07/31/2025 9:01 AM EST Oxygen Saturation 98% 07/31/2025 9:01 AM EST Inhaled Oxygen Concentration - - Weight 95 kg (209 lb 6.4 oz) 07/31/2025 9:01 AM EST Height 172.7 cm (5' 8 ) 07/31/2025 9:01 AM EST Body Mass Index 31.84 07/31/2025 9:01 AM EST documented in this encounter Miscellaneous Notes * Assessment & Plan Note - Berenice Velazco NP - 07/31/2025 9:00 AM ESTAssociated Problem(s): Gastroesophageal reflux disease without esophagitis Orders: pantoprazole (Protonix) 40 MG EC tablet; Take 1 tablet (40 mg) by mouth before breakfast. Do not crush, chew, or split. documented in this encounter Plan of Treatment Upcoming Encounters Date Type Department Care Team (Late st Contact Info) Description 08/23/2025 11:30 AM EST Office Visit [facility] [address] [place] [address] Jose J Schaefer MD [address] [place] [address] Scheduled Orders Name Type Priority Associated Diagnoses Orde r Schedule POCT urinalysis dipstick manually resulted (CPT 23538) Point of Care Testing Routine Foamy urine Ordered: 07/31/2025 Basic Metabolic Panel Lab Routine Foamy urine Expected: 07/31/2025 (Approximate), Expires: 07/31/2026 documented as of this encounter Procedures Procedure Name Priority Date/Time Associated Diagnosis Comments CBC WITH AUTO DIFFERENTIAL Routine 07/31/2025 10:26 AM EST Chills POCT INFLUENZA B (ID NOW RAPID MOLECULAR) Routine 07/31/2025 9:27 AM EST Chills POCT INFLUENZA A (ID NOW RAPID MOLECULAR) Routine 07/31/2025 9:27 AM EST Chills POCT RAPID COVID ANTIGEN Routine 07/31/2025 9:26 AM EST Chills documented in this encounter Results * (ABNORMAL) CBC auto differential (07/31/2025 10:26 AM EST) White Blood Count 12.0(H) 4.8 - 10.8 X10*3/uL [facility] Red Blood Count 4.78 4.60 - 5.80 X10*6/uL [facility] Hemoglobin 15.5 14.0 - 18.0 g/dl [facility] Hematocrit 44.3 42.0 - 52.0 % [facility] Mean Corpuscular Volume 92.7 80.0 - 98.0 fL [facility] Mean Corpuscular Hemoglobin 32.4 27.0 - 33.0 pg [facility] Mean Corpuscular HGB Conc 35.0 31.0 - 36.0 g/dl [facility] Red Cell Distribution Width 12.2 11.0 - 16.0 % [facility] Platelet Count 219 160 - 400 X10*3/uL [facility] Mean Platelet Volume 9.7 9.4 - 12.4 fL [facility] Neutrophils Percent Auto 54.2 45 - 73 % [facility] Imm Gran Pct Auto 0.4 0.0 - 0.4 % [facility] Lymphocytes Percent Auto 33.3 20 - 40 % [facility] Monocytes Percent Auto 9.9 2 - 11 % [facility] Eosinophils Percent Auto 1.6 0 - 4 % [facility] Basophils Percent Auto 0.6 0 - 2 % [facility] NRBC Pct Auto 0.0 0.0 - 0.2 /100WBC [facility] Neutrophils Absolute Auto 6.5 2.0 - 8.3 x10*3/uL [facility] Imm Gran Abs Auto 0.05(H) 0.00 - 0.03 X10*3/uL [facility] Lymphocytes Absolute Auto 4.0 1.2 - 4.9 X10*3/uL [facility] Monocytes Absolute Auto 1.2 0.1 - 1.2 X10*3/uL [facility] Eosinophils Absolute Auto 0.2 0.0 - 0.4 X10*3/uL [facility] Basophils Absolute Auto 0.1 0.0 - 0.2 X10*3/uL [facility] NRBC Abs Auto 0.000 0.0 - 0.012 X10*3/uL [facility] Blood Venous blood specimen / Unknown 07/31/2025 10:26 AM EST 07/31/2025 11:01 AM EST Berenice Velazco ANALYTICAL RESEARCH CHEMIST LAB BLOOD ORDERABLES Final Resu lt Performing Organization Address City/[facility]/ZIP Co de Phone Number [facility] [address] [place] [phone] * POCT Rapid Influenza B MANRIQUE ID NOW (07/31/2025 9:27 AM EST) Influenza B Negative Negative, Indeterminate [facility] QC Media Lot # [id number] [facility] Lot# Expiration Date 12 [facility] Swab 07/31/2025 9:27 AM EST Berenice Velazco ANALYTICAL RESEARCH CHEMIST POINT OF CARE TEST ENTER/EDIT O RDERABLES Final Result Performing Organization Address City/[facility]/ZIP Co de Phone Number [facility] [address] [place] [phone] * POCT Rapid Influenza A MANRIQUE ID NOW (07/31/2025 9:27 AM EST) Influenza A Negative Negative, Indeterminate [facility] QC Media Lot # [id number] [facility] Lot# Expiration Date 12,126 [facility] Swab 07/31/2025 9:27 AM EST Berenice Alvarez ANALYTICAL RESEARCH CHEMIST POINT OF CARE TEST ENTER/EDIT O RDERABLES Final Result [facility] [address] [place] [phone] * POCT Rapid Covid-19 BinaxNOW (07/31/2025 9:26 AM EST) Rapid COVID Ag Negative QC Media Lot # [id number] Lot# Expiration Date 82,426 Swab 07/31/2025 9:26 AM EST Berenice Velazco ANALYTICAL RESEARCH CHEMIST POINT OF CARE TEST ENTER/EDIT O RDERABLES Final Result documented in this encounter Visit Diagnoses Diagnosis Viral illness- Primary Unspecified viral infection, in conditions classified elsewhere and of unspecified site Chills Chills (without fever) Foamy urine Other nonspecific finding on examination of urine Gastroesophageal reflux disease without esophagitis Esophageal reflux documented in this encounter Care Teams Cyber Systems Administrator Relationship Specialty Start Date End Date Jose J Schaefer MD [address] [place] [phone] PCP - General Internal Medicine 06/08/24 documented as of this encounter
--- OUTSIDE RECORDS SUMMARY | 2025-08-01 17:20 | XMS_ITS | Encounter Summary ---
Author Organization [facility] Address [address] 7 [place] [address] Care Team Providers Care Retail Shift Supervisor Name Role Phone Jose J Schaefer MD Primary Care Prov ider Reason for Referral * Consultation (Urgent) - Pending Review Specialty Diagnoses / Procedures Referred By Carlos ariza Referred To Contact Gastroenterology Diagnoses Gastroesophageal reflux disease without esophagitis Perianal abscess Carmencita Suero CNP [address] [place] [address] Phone: tel: fax: Referral ID Status Reason Start Date Expiration Date Visits Requested Visits Authorized [id number] Pending Review Specialty Services Required 08/01/2026 1 1 Encounter Details Date Type Department Care Team (Late st Contact Info) Description 08/01/2025 5:20 PM EST Office Visit [facility] [address] [address] Carmencita Suero CNP [address] [place], [place] [phone] Perianal abscess (Primary Dx); Gastroesophageal reflux disease without esophagitis Social History [...] Sign Reading Time Taken Comments Blood Pressure 140/89 08/01/2025 4:59 PM EST Pulse 86 08/01/2025 4:59 PM EST Temperature 36.8 C (98.3 F) 08/01/2025 4:59 PM EST Respiratory Rate 21 08/01/2025 4:59 PM EST Oxygen Saturation 97% 08/01/2025 4:59 PM EST Inhaled Oxygen Concentration - - Weight 94.8 kg (209 lb) 08/01/2025 4:59 PM EST Height - - Body Mass Index 31.78 07/31/2025 9:01 AM EST documented in this encounter Progress Notes * Carmencita Suero CNP - 08/01/2025 5:20 PM EST Vinh Nickerson is a 40 y.o. male who presents for a acute visit. HPI Pt presents for abdominal pain x multiple months Here yesterday in [facility] for same issue, POCT viral swabs neg. Pt prescribed protonix once a day. Reports issues picking up medication in the past. [facility] provider advised pt to f/u with GI doctor for further evaluation. Last GI referral was in February of 2025, appointment was authorized for March it appears pt did not attend Today - Ongoing stomach issues for at least 5 months, including persistent pain and abdominal swelling, especially at night, causing difficulty sleeping - Anal discharge described as clear liquid, began 2 weeks after drainage procedure at [facility]; moist on toilet paper, no bleeding reported -Reports normal bowel movements - Drainage procedure performed with incision for perianal abscess in Jun [address] [facility], advised it would heal in one week; no follow-up provided after procedure - Medication for stomach symptoms not taken for almost a week due to prescription issues - Reports fever, chills, body aches, and night sweats experienced during the past week - Reports that GI is requesting cardiac evaluation with TTE and stress test before pt can be seen? Reports he has history of anxiety, including anxiety crisis with chest pain and numbness in arm, leading to emergency room visit; believes symptoms were related to anxiety and gas and he attributes need for cardiac evaluation to this episode Problem List[1] Allergies[2] Review of Systems Vitals: 08/01/25 1659 BP: (!) 140/89 BP Location: Left arm Patient Position: Sitting BP Cuff Size: Adult Pulse: 86 Resp: 21 Temp: 98.3 ??F (36.8 ??C) TempSrc: Oral SpO2: 97% Weight: 209 lb (94.8 kg) Physical Exam Vitals reviewed. Constitutional: General: He is not in acute distress. Appearance: Normal appearance. He is not ill-appearing, toxic-appearing or diaphoretic. HENT: Head: Normocephalic and atraumatic. Cardiovascular: Rate and Rhythm: Normal rate and regular rhythm. Pulses: Normal pulses. Heart sounds: Normal heart sounds. No murmur heard. No friction rub. No gallop. Pulmonary: Effort: Pulmonary effort is normal. No respiratory distress. Breath sounds: Normal breath sounds. No stridor. No wheezing, rhonchi or rales. Chest: Chest wall: No tenderness. Abdominal: General: There is distension. Tenderness: There is no guarding or rebound. Genitourinary: Comments: No anal abscess, hemorrhoid, redness, swelling or fissures noted Musculoskeletal: Right lower leg: No edema. Left lower leg: No edema. Neurological: General: No focal deficit present. Mental Status: He is alert and oriented to person, place, and time. Mental status is at baseline. Psychiatric: Mood and Affect: Mood normal. Behavior: Behavior normal. Thought Content: Thought content normal. Judgment: Judgment normal. Problem List Items Addressed This Visit Gastroesophageal reflux disease without esophagitis Relevant Medications pantoprazole (Protonix) 40 MG EC tablet Other Relevant Orders Referral to Gastroenterology Other Visit Diagnoses Perianal abscess - Primary Relevant Orders Referral to Gastroenterology RPR (Monitor) with Reflex to Titer Chlamydia/N. Gonorrhoeae, PCR, Urine HIV-1/2 Antigen and Antibodies, Fourth Generation, with Reflexes Hepatitis C Antibody with Reflex to HCV, RNA, Quantitative, Real-Time PCR Mycoplasma genitalium, rRNA, TMA Trichomonas RNA (Urine/Vaginal) Assessment - Anal discharge likely secondary to prior perianal abscess drainage; possible internal hemorrhoid considered since no abscess/fluid collection noted on PE -Abdominal exam sufficient for distention, otherwise normal exam. -elevated WBC ordered by another provider at yesterday' isit concerning for systemic infection, however due to lack of systemic symptoms of infection and no evidence of abscess recurrence no antibiotics are indicated at this time. Plan - Sent a new prescription for protonix to the designated pharmacy to ensure access to required medication. - Placed an urgent referral to gastroenterology for colonoscopy and endoscopy, specifically for procedural evaluation due to ongoing gastrointestinal symptoms and history of perianal abscess versus prolapsing internal hemorrhoid. Gastroenterology will reach out within the next two weeks to schedulethe procedures. If not contacted, call the primary care provider???s office to track the referral. - Offered an urgent referral to general surgery for further evaluation and possible drainage of theanal abscess if symptoms worsen or if preferred. Alternatively, advised to go to the emergency roomfor incision and drainage if the area becomes bothersome or if symptoms escalate. - Advised to monitor the color and characteristics of the anal discharge. Report immediately if thedischarge turns green, yellow, bloody, or develops an odor, as these may indicate infection. - Ordered additional laboratory tests specific to current symptoms, including evaluation of the discharge with STI panel to r/o proctitis. - Will communicate laboratory results by phone with concession supervisor assistance once available, and provide further recommendations based on findings. Current Medications[3] [1] Patient Active Problem List Diagnosis Adjustment disorder with mixed anxiety and depressed mood Adjustment disorder with anxious mood Bipolar 1 disorder (CMS/HCC) (HCC) Anxiety Benzodiazepine abuse ([facility]/HCC) (HCC) Gastroesophageal reflux disease without esophagitis Epigastric pain Back pain Perianal pain [2] No Known Allergies [3] Current Outpatient Medications: acetaminophen (Tylenol Extra Strength) 500 MG tablet, Take 2 tablets (1,000 mg) by mouth every 6 (six) hours if needed for mild pain for up to 10 days., Disp: 42 tablet, Rfl: 0 clonazePAM (KlonoPIN) 0.5 MG tablet, Take 1 tablet by mouth 2 times daily., Disp: , Rfl: cyclobenzaprine (Flexeril) 10 MG tablet, Take 1 tablet (10 mg) by mouth 3 times daily., Disp: 30 tablet, Rfl: 0 divalproex (Depakote ER) 500 MG 24 hr tablet, TAKE TWO TABLETS TWICE DAILY IN THE MORNING AND AT BEDTIME, DO NOT BREAK, CRUSH, DISSOLVE OR CHEW, Disp: 120 tablet, Rfl: 1 gabapentin (Neurontin) 100 MG capsule, Take 1 capsule (100 mg) by mouth 2 times daily., Disp: 60 capsule, Rfl: 1 hydrOXYzine HCl (Atarax) 50 MG tablet, Take 1 tablet (50 mg) by mouth if needed in the morning, at noon, and at bedtime for anxiety., Disp: 90 tablet, Rfl: 1 lidocaine (Lidoderm) 5 % patch, Apply 1 patch topically Once per day. Remove & discard patch within 12 hours or as directed by MD., Disp: 30 patch, Rfl: 3 naproxen (Naprosyn) 500 MG tablet, Take 1 tablet by oral route twice daily as needed for moderate pain, Disp: 30 tablet, Rfl: 1 nicotine (Nicoderm CQ) 21 MG/24HR patch, Place 1 patch on the skin 1 (one) time each day at the same time., Disp: 30 patch, Rfl: 3 nicotine polacrilex (Nicorette) 4 MG gum, CHEW 1 PIECE OF GUM EVERY 2 HOURS IF NEEDED FOR SMOKING CESSATION, Disp: 220 each, Rfl: 2 pantoprazole (Protonix) 40 MG EC tablet, Take 1 tablet (40 mg) by mouth before breakfast. Do not crush, chew, or split., Disp: 30 tablet, Rfl: 11 polyethylene glycol, PEG, 3350 (MiraLax) 17 GM/SCOOP powder, Take 17 g by mouth Once per day., Disp: 510 g, Rfl: 2 propranolol (Inderal) 10 MG tablet, Take 1 tablet (10 mg) by mouth if needed in the morning and at bedtime (Anxiety)., Disp: 60 tablet, Rfl: 1 QUEtiapine (SEROquel) 100 MG tablet, Take 2 tablets (200 mg) by mouth at bedtime., Disp: 60 tablet,Rfl: 1 sucralfate (Carafate) 1 g tablet, Take 1 tablet (1 g) by mouth before breakfast and before evening meal., Disp: 60 tablet, Rfl: 11 documented in this encounter Plan of Treatment Upcoming Encounters Date Type Department Care Team (Late st Contact Info) Description 08/23/2025 11:30 AM EST Office Visit [facility] MED & PEDS [address] [place], [place] [phone] Jose J Schaefer MD [address] [place], [place] [phone] Scheduled Orders Name Type Priority Associated Diagnoses Orde r Schedule RPR (Monitor) with Reflex to Titer Lab Routine Perianal abscess Expected: 08/01/2025, Expires: 08/01/2026 Chlamydia/N. Gonorrhoeae, PCR, Urine Lab Routine Perianal abscess Ordered: 08/01/2025 HIV-1/2 Antigen and Antibodies, Fourth Generation, with Reflexes Lab Routine Perianal abscess Expected: 08/01/2025 (Approximate), Expires: 08/01/2026 Hepatitis C Antibody with Reflex to HCV, RNA, Quantitative, Real-Time PCR Lab Routine Perianal abscess Expected: 08/01/2025, Expires: 08/01/2026 Mycoplasma genitalium, rRNA, TMA Lab Routine Perianal abscess Expected: 08/01/2025 (Approximate), Expires: 08/01/2026 Trichomonas RNA (Urine/Vaginal) Lab Routine Perianal abscess Ordered: 08/01/2025 Scheduled Referrals Name Type Priority Associated Diagnoses Order Schedule Referral to Gastroenterology Outpatient Referral Urgent Gastroesophageal reflux disease without esophagitis Perianal abscess Expected: 08/01/2025 (Approximate), Expires: 08/01/2026 documented as of this encounter Visit Diagnoses Diagnosis Perianal abscess- Primary Abscess of anal and rectal regions Gastroesophageal reflux disease without esophagitis Esophageal reflux documented in this encounter Care Teams Retail Shift Supervisor Relationship Specialty Start Date End Date Jose J Schaefer MD [address] [place] [phone] PCP - General Internal Medicine 06/08/24 documented as of this encounter
--- OUTSIDE RECORDS SUMMARY | 2025-08-02 09:13 | XMS_ITS | Encounter Summary ---
Author Organization [employer] Address [address] [place] [address] Care Team Providers Care Commercial Internship Name Role Phone Jose J Schaefer MD [...] Description 08/23/2025 11:30 AM EST Office Visit [facility] MED & PEDS [address] [place] [address] Jose J Schaefer MD [address] [place] [address] documented as of this encounter Visit Diagnoses Not on filedocumented in this encounter Care Teams Commercial Internship Relationship Specialty Start Date End Date Jose J Schaefer MD [address] [place] [address] PCP - General Internal Medicine 06/08/24 documented as of this encounter
--- OUTSIDE RECORDS SUMMARY | 2025-08-02 09:13 | XMS_ITS | Encounter Summary ---
Author Organization [employer] Address [address] 7[address] [place] [address] Care Team Providers Care Ticket Printer Name Role Phone Jose J Schaefer MD Primary Care Prov ider Encounter Details Date Type Department Care Team (Latest Contact Info) Description 08/01/2025 Results Follow-Up [facility] MEDICINE [address] [place] [address] Berenice Velazco NP [address] [place] [address] POCT Rapid Influenza A MANRIQUE ID NOW, POCT Rapid Influenza B MANRIQUE ID NOW, POCT Rapid Covid-19 BinaxNOW, CBC auto differential Social History Tobacco Use Types Packs/Day Years [...] Description 08/23/2025 11:30 AM EST Office Visit [facility] PED[facility] [address] [place] [address] Jose J Schaefer MD [address] [place] [address] documented as of this encounter Visit Diagnoses Not on filedocumented in this encounter Care Teams Ticket Printer Relationship Specialty Start Date End Date Jose J Schaefer MD [address] [place] [address] PCP - General Internal Medicine 06/08/24 documented as of this encounter
--- OUTSIDE RECORDS SUMMARY | 2025-08-02 09:13 | XMS_ITS | Encounter Summary ---
Author Organization [facility] Address [address] [place] [address] Care Team Providers Care Identification Technician Name Role Phone Jose J Schaefer MD Primary Care Prov ider Reason for Referral * Consultation (Routine) - Authorized Specialty Diagnoses / Procedures Referred By Carlos t Referred To Contact Gastroenterology Diagnoses Epigastric pain Jose J Schaefer MD [address] [place] [address] Phone: tel: fax: Madisyn Lira MD [address] [place] [address] [place] [address] Phone: tel: fax: Referral ID Status Reason Start Date Expiration Date Visits Requested Visits Authorized [id number] Authorized Specialty Services Required 03/20/2025 04/20/2026 6 6 Encounter Details Date Type Department Care Team (Latest Contact Info) Description 03/20/2025 Transcribe Orders [facility] Physician Referral Services [address] [place] [address] Jose J Schaefer MD [address] [place] [address] Epigastric pain (Primary Dx) Social History Tobacco [...] Info) Description 08/14/2025 2:00 PM EST Appointment [facility] [address] [place] [address] Jignesh Hummel MD [address] [place] [address] 08/22/2025 1:30 PM EST Appointment [facility] Cardiac Ultrasound [address] [place] [address] 08/22/2025 2:30 PM EST Appointment [facility] Building Heart Station [address] [place] [address] Scheduled Referrals Name Type Priority Associated Diagnoses Order Schedule Ambulatory referral to Gastroenterology Outpatient Referral Routine Epigastric pain Expected: 03/20/2025, Expires: 04/20/2026 documented as of this encounter Visit Diagnoses Diagnosis Epigastric pain- Primary Abdominal pain, epigastric documented in this encounter Care Teams Identification Technician Relationship Specialty Start Date End Date Jose J Schaefer MD [address] [place] [phone] PCP - General Internal Medicine 03/01/25 documented as of this encounter
--- OUTSIDE RECORDS SUMMARY | 2025-08-02 09:13 | XMS_ITS | Encounter Summary ---
Author Organization [employer] Address [address] [place] [address] Care Team Providers Care Oil And Gas Well Treatment Operator Name Role Phone Jose J Schaefer MD Primary Care Prov ider Reason for Visit * Reason Onset Date Comments call back requested 07/31/2025 Encounter Details Date Type Department Care Team ([facility] Contact Info) Description 07/31/2025 Telephone [facility] MEDICINE [address] [place] [address] Jose J Schaefer MD [address] [place], [place] [phone] call back requested Social History Tobacco Use [...] Miscellaneous Notes * Telephone Encounter - Ellie Gonzalez - 07/31/2025 10:51 AM EST TC from pt requesting a call back pt stated is tacking 2 pills of Pantoprazole. And insurance will not pay for medication until September. Pt case picker medication on 06/07 for a [address] Giles documented in this encounter Plan of Treatment Upcoming Encounters Date Type Department Care Team (Late st Contact Info) Description 08/23/2025 11:30 AM EST Office Visit [facility] [address] [place] [address] Jose J Schaefer MD [address] [place] [address] documented as of this encounter Visit Diagnoses Not on filedocumented in this encounter Care Teams Oil And Gas Well Treatment Operator Relationship Specialty Start Date End Date Jose J Schaefer MD [address] [place] [address] PCP - General Internal Medicine 06/08/24 documented as of this encounter
--- OUTSIDE RECORDS SUMMARY | 2025-08-02 09:13 | XMS_ITS | Clinical Summary ---
Author Organization [employer] Address [address] [place] [address] Care Team Providers Care Security Inspector Name Role Phone Jose J Schaefer MD [...] 5 4:05 PM EST 06/07/20 25 Active divalproex (Depakote ER) 500 MG 24 [...] crush, chew, or split. 30 tablet 11 08/01/20 026 Active pantoprazole (Protonix) 40 MG EC tabletIndicatio ns:Gastroesopha geal reflux disease without esophagitis Take 1 tablet (40 mg) by mouth before breakfast. Do not crush, chew, or split. 30 tablet 11 06/07/20 025 Discontinued(Re order (will not trigger notification to Pharmacy)) pantoprazole (Protonix) 40 MG EC tabletIndicatio ns:Gastroesopha geal reflux disease without esophagitis Take 1 tablet (40 mg) by mouth before breakfast. Do not crush, chew, or split. 30 tablet 11 07/31/20 025 Discontinued(Re order (will not trigger notification [...] Pt agreed today to go to ED [facility] to get evaluation and STAT image I called [facility] ER and informed about pt going -pt states dont need EMS Epigastric pain 03/01/2025 Assessment & Plan (03/01/2025 9:13 AM EDT): Will refer to gastroenterology, continue PPI, lifestyle modifications reviewed Gastroesophageal reflux disease without esophagi tis 01/25/2025 Assessment & Plan (07/31/2025 5:49 PM EST): Orders: pantoprazole (Protonix) 40 MG EC tablet; Take 1 tablet (40 mg) by mouth before breakfast. Do not crush, chew, or split. Assessment & Plan (01/25/2025 9:44 AM EDT): Lifestyle modifications discussed, will start on omeprazole, call back if not improving Benzodiazepine abuse (CMS/[facility]) 01/03/2025 Bipolar 1 disorder (CMS/HCC) 11/29/2024 Anxiety [...] BH/psych therapy locally, he refers has a [facility] psychiatrist, refers he will get prescription delivered from [place]??. I made clear with register in chancery as help that the best option would be to be followed locally for his mental conditions, also I made clear that if he will receive services from a psychiatrist in [place] and he needs the prescription from me [...] Encounters Date Type Department Care Team Description 08/01/2025 5:20 PM EST Office Visit [facility] [address] [address] Carmencita Suero, EUGENIO Perianal abscess (Primary Dx); Gastroesophageal reflux disease without esophagitis 08/01/2025 Results Follow-Up [address] [address] Berenice Velazco, NIR POCT Rapid Influenza A MANRIQUE ID NOW, POCT Rapid Influenza B MANRIQUE ID NOW, POCT Rapid Covid-19 PawelW, CBC auto differential 08/01/2025 Travel 08/01/[address] [phone] Jose J Schaefer MD Nurse Triage 07/31/2025 9:00 AM EST Office Visit [facility] [address] [place] [phone] Viral illness (Primary Dx); Chills; Foamy urine; Gastroesophageal reflux disease without esophagitis 07/31/[address] [phone] Jose J Schaefer MD call back requested 07/31/2025 Travel 07/21/2025 Telephone [facility] [address] [place] [address] Jose J Schaefer MD 07/01/2025 9:00 AM EDT [facility] [address] [address] Mary Christensen MD Chronic back pain, unspecified back location, unspecified back pain laterality (Primary Dx); Perianal pain 07/01/2025 Orders Only GENERIC EXTERNAL DATA DEPARTMENT Provider, Generic External Data 07/01/2025 Travel 06/27/2025 Telephone [facility] [address] [place] [address] Jose J Schaefer MD Med Refill; Referral 06/19/2025 Telephone [facility] [address] [place] [address] Jose J Schaefer MD Change PCP 06/07/2025 Orders Only [facility] [address] [place] [address] Jose J Schaefer MD Anxiety; Bipolar 1 disorder (CMS/HCC) (HCC); Tobacco use disorder 06/07/2025 Refill [facility] [address] [place] [address] Jose J Schaefer MD Gastroesophageal reflux disease without esophagitis; Epigastric pain; Chronic midline low back pain without sciatica 06/02/2025 Orders Only [facility] [address] [place] [address] Jose J Schaefer MD Chest pain, unspecified type (Primary Dx) 06/02/2025 Refill [facility] [address] [place] [address] Jose J Schaefer MD Tobacco use disorder 06/01/2025 Telephone [facility] [address] [place] [address] Jose J Schaefer MD 05/31/2025 Telephone [facility] [address] [place] [address] Jose J Schaefer MD Referral 05/26/2025 Refill [facility] [address] [place] [address] Faviola Fung MD Bipolar 1 disorder ([facility]) 05/18/2025 Refill [facility] [address] [place] [address] Jose J Schaefer MD 05/18/2025 Telephone [facility] [address] [place] [address] Jose J Schaefer MD Med Refill from [...] (209 lb) 08/01/2025 4:59 PM EST Height 172.7 cm (5' 8 ) 07/31/2025 9:01 AM EST Body Mass Index 31.78 07/31/2025 9:01 AM EST Plan of Treatment Upcoming Encounters Date Type Department Care Team (Late st Contact Info) Description 08/23/2025 11:30 AM EST Office Visit [facility] [address], [place] [phone] Jose J Schaefer MD [address] [place] [address] Health Maintenance Due Date Last Done Comments [...] 04/13/2024, 04/13/20 24 SDOH Screening 04/29/2025 04/29/2024 COVID-19 Vaccine ( - season) 2025 06/02/2024, 09/30/2021, 05/25/2021, Additional history exists Influenza Vaccine (#1) 2025 06/02/2024 Tobacco Screening 08/01/2026 08/01/2025 Lipid Panel 04/29/2029 04/29/2024 Zoster Vaccines (1 of 2) 2035 RSV Patients and Patients Aged 60 years or older (1 - 1-dose 75+ series) 02/01/2060 Meningococcal Vaccine Aged Out 03/24/1990, 990 No longer eligible based on patient's age to complete this topic HIV Screening Completed 04/29/2024 Hepatitis B Vaccines Completed 06/02/2024, 12/17/2023, 11/14/2023, Additional history exists Hepatitis C Screening Completed 07/31/2025, 024 HIB Vaccines Aged Out No longer eligi [...] DIFFERENTIAL Routine 07/31/2025 10:26 AM EST Chills HEPATITIS PANEL, GENERAL Routine 07/31/2025 10:26 AM EST Elevated liver enzymes COMPREHENSIVE METABOLIC PANEL Routine 07/31/2025 10:26 AM EST Elevated liver enzymes POCT INFLUENZA B (ID NOW RAPID MOLECULAR) [...] REFLEX MICROSCOPIC Routine 07/01/2025 11:19 AM EDT HIV 1/2 ANTIGEN/ANTIBODY, FOURTH GENERATION W/RFL Routine 04/29/2024 12:27 PM EDT Healthcare maintenance LIPID PANEL, STANDARD Routine 04/29/2024 12:27 PM EDT Healthcare maintenance from Last 3 Months or Most Recently Relevant to Health Maintenance Results * Hepatitis A,B,C Profile (07/31/2025 10:26 AM EST) Hepatitis A IgM Nonreactive Nonreactive [facility] Comment:IgM antibodies to PHAM V not detected; does not exclude earlyacute or recovered HAV infection. ~Hepatitis B Surface Antibody REACTIVE Nonreactive [facility] Comment:REACTIVE: > 11.99 mI U/mL Hepatitis B Core Antibody Nonreactive Nonreactive [facility] Hepatitis C Antibody Nonreactive Nonreactive [facility] Comment:Antibodies to HCV no t detected; does not exclude early acuteHCV infection. Hepatitis B Surface Ag Negative Negative [facility] Blood Venous blood specimen / Unknown 07/31/2025 10:26 AM EST 07/31/2025 1:04 PM EST [facility] LAB BLOOD ORDERABLES Final Re sult [facility] [address] [place] [address] [phone] * (ABNORMAL) CBC auto differential (07/31/2025 10:26 AM EST) Only the most recent of2 resultswithin the time period is included. White Blood Count 12.0(H) 4.8 - 10.8 X10*3/uL [facility] Red Blood Count 4.78 4.60 - 5.80 X10*6/uL [facility] Hemoglobin 15.5 14.0 - 18.0 g/dl [facility] Hematocrit 44.3 42.0 - 52.0 % [facility] Mean Corpuscular Volume 92.7 80.0 - 98.0 fL [facility] Mean Corpuscular Hemoglobin 32.4 27.0 - 33.0 pg [facility] Mean Corpuscular HGB Conc 35.0 31.0 - 36.0 g/dl [facility] Red Cell Distribution Width 12.2 11.0 - 16.0 % [facility] Platelet Count 219 160 - 400 X10*3/uL [facility] Mean Platelet Volume 9.7 9.4 - 12.4 fL [facility] Neutrophils Percent Auto 54.2 45 - 73 % [facility] Imm Gran Pct Auto 0.4 0.0 - 0.4 % [facility] Lymphocytes Percent Auto 33.3 20 - 40 % [facility] Monocytes Percent Auto 9.9 2 - 11 % [facility] Eosinophils Percent Auto 1.6 0 - 4 % [facility] Basophils Percent Auto 0.6 0 - 2 % [facility] NRBC Pct Auto 0.0 0.0 - 0.2 /100WBC [facility] Neutrophils Absolute Auto 6.5 2.0 - 8.3 x10*3/uL [facility] Imm Gran Abs Auto 0.05(H) 0.00 - 0.03 X10*3/uL [facility] Lymphocytes Absolute Auto 4.0 1.2 - 4.9 X10*3/uL [facility] Monocytes Absolute Auto 1.2 0.1 - 1.2 X10*3/uL [facility] Eosinophils Absolute Auto 0.2 0.0 - 0.4 X10*3/uL [facility] Basophils Absolute Auto 0.1 0.0 - 0.2 X10*3/uL [facility] NRBC Abs Auto 0.000 0.0 - 0.012 X10*3/uL [facility] Blood Venous blood specimen / Unknown 07/31/2025 10:26 AM EST 07/31/2025 11:01 AM EST us Berenice Velazco FUR DRESSER LAB BLOOD ORDERABLES Final Resu lt [facility] [address] [place] [address] [phone] * (ABNORMAL) Comprehensive Metabolic Panel (07/31/2025 10:26 AM EST) Only the most recent of2 resultswithin the time period is included. Sodium 141 135 - 145 mmol/L [facility] Potassium 4.6 3.3 - 5.1 mmol/L [facility] Chloride 107 96 - 108 mmol/L [facility] Carbon Dioxide 29 22 - 29 mmol/L [facility] Anion Gap 10(L) 12 - 20 [facility] Urea Nitrogen (BUN) 22(H) 9 - 16 mg/dL [facility] Creatinine, Serum 1.47(H) 0.5 - 1.4 mg/dL [facility] Estimated Glomerular Filt Rate 53 [facility] Comment:Chronic Kidney Disea se: Estimated GFR < 60 mL/min/1.63m1Nhgsxc Kidney Disease: Estimated GFR < 15 mL/min/1.73m2 Glucose 107 60 - 115 mg/dL [facility] Calcium 9.5 8.4 - 10.2 mg/dL [facility] Bilirubin, Total 0.3 0.0 - 1.0 mg/dL [facility] Aspartate Amino Transferase 31 5 - 37 U/L [facility] Alanine Aminotransferase 39 0 - 40 U/L [facility] Total Protein 7.1 6.5 - 8.0 g/dL [facility] Albumin Level 4.5 3.5 - 5.0 g/dL [facility] Alkaline Phosphatase 73 39 - 117 U/L [facility] Blood Venous blood specimen / Unknown 07/31/2025 10:26 AM EST 07/31/2025 1:04 PM EST [facility] LAB BLOOD ORDERABLES Final Re sult Performing Organization Address [facility] Co de Phone Number [facility] [address] [place] [phone] * POCT Rapid Influenza B MANRIQUE ID NOW (07/31/2025 9:27 AM EST) Influenza B Negative Negative, Indeterminate [facility] QC Media Lot # [id number] [facility] Lot# Expiration Date [facility] Swab 07/31/2025 9:27 AM EST Berenice Velazco FUR DRESSER POINT OF CARE TEST ENTER/EDIT O RDERABLES Final Result Performing Organization Address [facility] Co de Phone Number [facility] [address] [place] [phone] * POCT Rapid Influenza A MANRIQUE ID NOW (07/31/2025 9:27 AM EST) Influenza A Negative Negative, Indeterminate [facility] QC Media Lot # [id number] [facility] Lot# Expiration Date [facility] Swab 07/31/2025 9:27 AM EST Berenice Velazco FUR DRESSER POINT OF CARE TEST ENTER/EDIT O RDERABLES Final Result Performing Organization Address [facility] Co de Phone Number [facility] [address] [place] [phone] * POCT Rapid Covid-19 BinaxNOW (07/31/2025 9:26 AM EST) Rapid COVID Ag Negative QC Media Lot # [id number] Lot# Expiration Date [id number] Swab 07/31/2025 9:26 AM EST Bereince Juan A FUR DRESSER POINT OF CARE TEST ENTER/EDIT O RDERABLES Final Result * CT Abdomen Pelvis w/ Contrast (07/01/2025 1:53 PM EDT) Anatomical Region Laterality Modality Body, Pelvis, Abdomen Computed T omography 07/01/2025 1:53 PM EDT Narrative 07/01/2025 1:55 PM EDT [place] [address] CT Scan Report Signed Patient: Vinh Morales MR#: [id number] : 1985 Acct:[id number] Age/Sex: 40 / M ADM Date: 07/01/25 Loc: HO.ED Attending Dr: Ordering Physician: Dominga Krishnamurthy Date of Service: 07/01/25 Procedure(s): CT abdomen pelvis w IV con Accession Number(s): [id number] cc: Jose J Schaefer MD; Dominga Krishnamurthy Report Number: [id number]: Total DLP = 703.00 mGy-cm Reason for [...] signed by Brian Taylor MD in OV> 07/01/251353 DD/ 52 TD/TT: 07/01/251352 Fiber Glass Worker: Procedure Note Donotuseinterpreter, Image - 07/01/[address] [place] [address] [address] Scan Report Signed Patient: Vinh Morales#: M [id number] : 1985Acct:[id number] Age/Sex: 40 / MADM Date: 07/01/25 Loc: HO.ED Attending Dr: Ordering Physician: Dominga Krishnamurthy Date of Service: 07/01/25 Procedure(s): CT abdomen pelvis w IV con Accession Number(s): [id number] cc: Jose J Schaefer MD; Dominga Krishnamurthy Report Number: [id number]: Total DLP = 703.00 mGy-cm Reason for [...] 07/01/25 1354 DD/ 1353 TD/TT: 07/01/25 1353 Fiber Glass Worker: [facility] External Provider IMG CT PROCEDURES Edited Result - Final * Slide Review (07/01/2025 11:19 AM EDT) Slide Review VERIFIED [facility] 07/01/2025 11:1 9 AM EDT 07/01/2025 11:22 AM EDT Generic External Data Provider LAB BLOOD ORDERAB LES Final Result [facility] [address] [place] [address] [phone] * Urinalysis w/reflex microscopic (07/01/2025 11:19 AM EDT) Color Urine Yellow [facility] Appearance Urine Clear [facility] PH 6.0 5.0 - 9.0 [facility] Glucose Urine UA Negative Negative mg/dL [facility] Urine Blood Negative Negative [facility] Specific [place] - Urine 1.020 1.005 - 1.025 [facility] Urine Protein Negative Neg-Trace mg/dL [facility] Urine Ketones Trace Negative mg/dL [facility] Nitrite Urine Negative Negative [facility] Leukocyte Esterase Urine Negative Negative [facility] 07/01/2025 11:1 9 AM EDT 07/01/2025 11:22 AM EDT Narrative [facility] - 07/01/2025 11:27 AM EDT Urine, Clean Catch Generic External Data Provider LAB URINE ORDERAB LES Final Result Performing Organization Address City/[facility]/ZIP Co de Phone Number [facility] [address] [place] [phone] * Magnesium (07/01/2025 11:19 AM EDT) Magnesium 1.9 1.6 - 2.6 mg/dL [facility] 07/01/2025 11:1 9 AM EDT 07/01/2025 11:22 AM EDT Generic External Data Provider LAB BLOOD ORDERAB LES Final Result Performing Organization Address [facility] Co de Phone Number [facility] [address] [place] [phone] * HIV-1/2 Antigen and Antibodies, Fourth Generation, with Reflexes (04/29/2024 12:27 PM EDT) HIV AB/AG Nonreactive Nonreactive [facility] Comment:HIV-1 p24 Ag and/or HIV-1/HIV-2 Ab not detected.A test result that is nonreactive does not exclude thepossibility of exposure to or infection with HIV-1 and/orHIV-2. Nonreactive results in this assay for individualswith prior exposure to HIV-1 and/or HIV-2 may be due toantigen and antibody levels that are below the limit ofdetection of this assay.The [employer] HIV Ag/Ab Combo assay result andsupplemental assay results should be interpreted inconjunction with the patient's clinical presentation,history and other laboratory results. If the results areinconsistent with clinical evidence, additional testing issuggested to confirm the result. Blood Venous blood specimen / Unknown 04/29/2024 12:27 PM EDT 04/29/2024 1:15 PM EDT [facility] LAB BLOOD ORDERABLES Final Re sult Performing Organization Address [facility] Co de Phone Number [facility] [address] [place] [phone] * (ABNORMAL) Lipid Panel, Standard (04/29/2024 12:27 PM EDT) Triglycerides 95 <150 mg/dL [facility] Comment:Desirable Triglyceri de: less than 150 mg/dLBorderline High Triglyceride 150-199 mg/dLHigh Triglyceride: 200-499 mg/dLVery High Triglyceride: greater than or equal to 5OO mg/dL Cholesterol 190 <200 mg/dL [facility] Comment:Desirable Cholestero l: less than 200 mg/dLBorderline High Cholesterol: 200-239 mg/dLHigh Cholesterol: greater than 239 mg/dL LDL Cholesterol Calculated 128(H) <100 mg/dL [facility] Comment:Desirable LDL: less than 100 mg/dLNear Optimal/Above Optimal LDL: 110- 129 mg/dLBorderline High LDL: 130-159 mg/dLHigh LDL: 160-189 mg/dLVery High LDL: greater than or equal to 190 mg/dL HDL Cholesterol 43 >40 mg/dL [facility] Comment:Desirable HDL: great er than 40 mg/dL Note: This HDL assay may give artificially low results in patients with liver disease. Blood Venous blood specimen / Unknown 04/29/2024 12:27 PM EDT 04/29/2024 1:15 PM EDT [facility] LAB BLOOD ORDERABLES Final Re sult Performing Organization Address City/[facility]/ZIP Co de Phone Number [facility] [address] [place] [address] [phone] from Last 3 Months or Most Recently Relevant to Health Maintenance Insurance [place] F[place]-[facility] MEDICAID LIMITED ADULT DENTAL - HSN FULL (MEDICAID) Care Teams Security Inspector Relationship Specialty Start Date End Date Jose J Schaefer MD [address] [place] [phone] PCP - General Internal Medicine 06/08/24
--- OUTSIDE RECORDS SUMMARY | 2025-08-02 09:13 | XMS_ITS | Clinical Summary ---
Author Organization [facility] Address [address] [place] [address] Care Team Providers Care Lowerator Operator Name Role Phone Jose J Schaefer [...] Department Care Team Description 07/24/2025 Orders Only [facility] [address] [place] [address] Jignesh Hummel MD HNP (herniated nucleus pulposus), lumbar (Primary Dx) 07/04/2025 10:15 AM EDT Hospital Encounter [facility] [address] [place] [address] Jignesh Hummel MD Lumbar stenosis with neurogenic claudication (Primary Dx) Discharge Disposition: Home or Self Care () 06/22/2025 9:20 AM EDT Office Visit [facility] 4th floor Cardiology Medicine [address] [place] [address] Hydro Electric Station Operator: Andrzej Haile MD Shortness of breath (Primary Dx); Pre-op evaluation 06/21/2025 Transcribe Orders [facility] Physician Referral Services [address] [place] [address] Jose J Schaefer MD Chest pain, unspecified type (Primary Dx) 06/05/2025 3:20 PM EDT Telehealth [facility] A [address] [place] [address] Jacklyn Kelly PA Lumbar stenosis with neurogenic claudication (Primary Dx); Radiculopathy of lumbar region 05/31/2025 11:00 AM EDT - 05/31/2025 11:30 AM EDT Surgery [facility] Endoscopy [address] [place] [id number] Josemanuel Simpson MD PhD UPPER ENDOSCOPY; DIAGNOSTIC WITH BRUSH/WASH (SP) WITH POSSIBLE MODERATE SEDATION [49404 (CPT )] 05/31/2025 10:30 AM EDT - 05/31/2025 12:17 PM EDT Hospital Encounter [facility] Endoscopy [address] [place] [id number] Josemanuel Simpson MD PhD Discharge Disposition: Home or Self Care () 05/17/2025 11:55 AM EDT - 05/17/2025 11:59 PM EDT Hospital Encounter [facility] Xray [address] [place] [address] Pain Discharge Disposition: Home or Self Care () 05/17/2025 8:56 AM EDT - 05/17/2025 11:54 AM EDT Hospital Encounter [facility] [address] [place] [address] Jignesh Hummel MD Lumbar stenosis with neurogenic claudication (Primary Dx); Spinal stenosis, lumbar region with neurogenic claudication Discharge Disposition: Home or Self Care (01) 05/16/2025 Prep for Case [facility] Gastroenterology Clinic [address] [place] [address] [employer] Station Operator: Josemanuel Carrlilo MD PhD 05/09/2025 Telephone [facility] B [address] [place] [address] Telephone Intake, Staff PAC Test Result Request [...] Info) Description 08/14/2025 2:00 PM EST Appointment [facility] [address] [place] [address] Jignesh Hummel MD [address] [place] [address] 08/22/2025 1:30 PM EST Appointment [facility] Cardiac Ultrasound [address] [place] [address] 08/22/2025 2:30 PM EST Appointment [facility] Building Heart Station [address] [place] [address] Health Maintenance Due Date Last Done Comments [...] Screening Completed 07/01/2025 Procedures * Due to [place] [employer] law, this organization might not be sharing [...] Routine 06/22/2025 9:42 AM EDT Pre-op evaluation ND ESOPHAGOGASTRODUODENOSCOP Y TRANSORAL DIAGNOSTIC 05/31/2025 7:00 PM EDT Abdominal pain, epigastric FL C-ARM INJECTION NON-REPORTABLE Routine 05/17/2025 10:12 AM EDT Pain ND INJECT ANES/STEROID TIEN EN LUMBAR/SACRAL W IMG GUIDE ,1 LEVEL Routine 05/17/2025 9:30 AM EDT Lumbar stenosis with neurogenic claudication MRI LUMBAR SPINE WO CONTRAST Routine 9:30 PM EDT Spinal stenosis, lumbar region with neurogenic claudication Degeneration of intervertebral disc of lumbar region with discogenic back pain from Last 3 Months Results * Due to [place] state law, this organization might not be sharing negative HIV tests. * TSH Reflex Free T4 (06/22/2025 10:27 AM EDT) TSH 2.250 0.280 - 3.890 uIU/mL 06/22/2025 11:23 AM EDT [facility] (acquired by [employer] in 2014) [facility] Blood Structure of peripheral vein / Unknown Venipuncture / Unknown 06/22/2025 10:27 AM EDT 06/22/2025 10:47 AM EDT Andrzej Almazan MD LAB BLOOD ORDERABLES Final Result [facility] [address] [place] [address], * (ABNORMAL) Lipid Panel w/Reflex to Direct LDL (06/22/2025 10:27 AM EDT) Cholesterol 219(H) <=199 mg/dL 06/22/2025 11:23 AM EDT [facility] (acquired by [employer] in 2014) [facility] Triglycerides 291(H) <=149 mg/dL 06/22/2025 11:23 AM EDT [facility] (acquired by [employer] in 2014) [facility] Cholesterol, HDL 33(L) 40 - 59 mg/dL 06/22/2025 11:23 AM EDT [facility] (acquired by [employer] in 2014) [facility] Cholesterol, Non-HDL 186 mg/dL 06/22/2025 11:23 AM EDT [facility] (acquired by [employer] in 2014) [facility] LDL Cholesterol 128(H) <100 mg/dL 06/22/2025 11:23 AM EDT [facility] (acquired by [employer] in 2014) [facility] Comment:LDL-C is calculated using the Friedewald calculation. VLDL 58.2 mg/dL 06/22/2025 11:23 AM EDT [facility] (acquired by [employer] in 2014) [facility] Cholesterol/HDL Ratio 6.6(H) <5.0 06/22/2025 11:23 AM EDT [facility] (acquired by [employer] in 2014) [facility] Blood Structure of peripheral vein / Unknown Venipuncture / Unknown 06/22/2025 10:27 AM EDT 06/22/2025 10:47 AM EDT Narrative [facility] (acquired by [employer] in 2014) [facility] LAB[facility] - 06/22/2025 11:23 AM [...] Almazan MD LAB BLOOD ORDERABLES Final Result [facility] [address] [place] [address], [place] * Lipoprotein A (LPA) (06/22/2025 10:27 [...] AM EDT 06/22/2025 10:47 AM EDT Narrative [facility] - 06/27/2025 2:43 PM EDT [facility] Received Date: Andrzej Almazan MD LAB BLOOD ORDERABLES Final Result [facility] [address] [facility] 3rd Floor, [place] [address], [facility] (ARIEL) [address] [place], [place] , [place] * Hemoglobin A1c (06/22/2025 10:27 AM EDT) Hemoglobin A1C 5.6 <5.7 % 06/23/2025 1:13 PM EDT [facility] Comment: For the purpose of screening for the presence of diabetes: <5.7% Consistent with the absence of diabetes 5.7-6.4% Consistent with increased risk for diabetes (prediabetes) > or =6.5% Consistent with diabetes This assay result is consistent with a decreased risk of diabetes. Currently, no consensus exists regarding use of hemoglobin A1c for diagnosis of diabetes in children. According to [place] Diabetes Association (ADA) guidelines, hemoglobin A1c <7.0% represents optimal control in non- diabetic patients. Different metrics may apply to specific patient populations. Standards of Medical Care in Diabetes(ADA). eAG (MG/DL) 114 mg/dL 06/23/2025 1:13 PM EDT [facility] eAG (MMOL/L) 6.3 mmol/L 06/23/2025 1:13 PM EDT [facility] Blood Structure of peripheral vein / Unknown Venipuncture / Unknown 06/22/2025 10:27 AM EDT 06/22/2025 10:38 AM EDT Narrative [facility] - 06/23/2025 1:13 PM EDT [facility] Received Date: Andrzej Almazan MD LAB BLOOD ORDERABLES Edited Result - Final [facility] [address], [place] [address], Alma Johns [facility] [address], [place] [address], * (ABNORMAL) Comprehensive metabolic panel (06/22/2025 10:27 AM EDT) Pathologist [facility] NA 138 135 - 145 mmol/L 06/22/2025 11:23 AM EDT [facility] (acquired by [employer] in 2014) [facility] LAB[facility] K 4.5 3.5 - 5.3 mmol/L 06/22/2025 11:23 AM EDT [facility] (acquired by [employer] in 2014) [facility] Cl 103 97 - 110 mmol/L 06/22/2025 11:23 AM EDT [facility] (acquired by [employer] in 2014) [facility] CO2 26 22 - 32 mmol/L 06/22/2025 11:23 AM EDT [facility] (acquired by [employer] in 2014) [facility] Anion Gap 9 5 - 15 06/22/2025 11:23 AM EDT [facility] (acquired by [employer] in 2014) [facility] Glucose 104(H) 65 - 99 mg/dL 06/22/2025 11:23 AM EDT [facility] (acquired by [employer] in 2014) [facility] Creatinine 1.15 0.60 - 1.30 mg/dL 06/22/2025 11:23 AM EDT [facility] (acquired by [employer] in 2014) [facility] Calcium 9.3 8.6 - 10.5 mg/dL 06/22/2025 11:23 AM [employer] [facility] (acquired by [facility] in 2014) [facility] Total Protein 6.8 6.0 - 8.0 g/dL 06/22/2025 11:23 AM [employer] [facility] (acquired by [facility] [facility] in 2014) [facility] Albumin 4.1 3.5 - 5.2 g/dL 06/22/2025 11:23 AM EDT [facility] (acquired by [employer] in 2014) [facility] Bilirubin, Total 0.3 0.2 - 1.2 mg/dL 06/22/2025 11:23 AM EDT [facility] (acquired by [employer] in 2014) [facility] Alkaline Phosphatase 61 35 - 129 U/L 06/22/2025 11:23 AM EDT [facility] (acquired by [employer] in 2014) [facility] AST 30 10 - 40 U/L 06/22/2025 11:23 AM EDT [facility] (acquired by [employer] in 2014) [facility] ALT 29 10 - 40 U/L 06/22/2025 11:23 AM EDT [facility] (acquired by [employer] in 2014) [facility] BUN 11 7 - 23 mg/dL 06/22/2025 11:23 AM EDT [facility] (acquired by [employer] in 2014) [facility] eGFR 83 >=60 mL/min/1. 73m2 06/22/2025 11:23 AM [employer] [facility] (acquired by [employer] in 2014) [facility] Comment:The estimated glomer ular [...] - 4.2 g/dL 06/22/2025 11:23 AM EDT [facility] A/G Ratio 1.5 1.5 - 3.0 06/22/2025 11:23 AM EDT [facility] Blood Structure of peripheral vein / Unknown Venipuncture / Unknown 06/22/2025 10:27 AM EDT 06/22/2025 10:47 AM EDT Andrzej Almazan MD LAB BLOOD ORDERABLES Final Result [facility] [address] [place] [address], * ECG 12 lead (06/22/2025 9:42 AM EDT) Ventricular Rate EKG 87 BPM MUSE EKG Atrial Rate 87 BPM MUSE EKG ND Interval 148 ms MUSE EKG QRS Interval 78 ms MUSE EKG QT Interval 342 ms MUSE EKG QTC Interval 411 ms MUSE EKG P Acme 13 degrees MUSE EKG R Acme -11 degrees MUSE EKG T Wave Acme -5 degrees MUSE EKG 06/22/2025 9:42 AM EDT 06/22/2025 11:15 AM EDT Impressions [facility]USE EKG - 06/22/2025 11:15 AM EDT NORMAL SINUS RHYTHM NORMAL ECG NO PREVIOUS ECGS AVAILABLE Confirmed by Andrzej Almazan ([id number]) on 06/22/2025 11:15:36 AM Narrative Procedure Note Andrzej Almazan MD - 10/16/2025 IMPRESSION: NORMAL SINUS RHYTHM NORMAL ECG NO PREVIOUS ECGS AVAILABLE Confirmed by Andrzej Almazan ([id number]) on 06/22/2025 11:15:36 AM us Andrzej Almazan MD ECG ORDERABLES Final Resul t Performing Organization Address City/[facility] Co de Phone Number MUSE EKG * FL C-Arm Injection Non-Reportable (05/17/2025 10:12 AM EDT) Narrative IMAGING - 05/17/2025 4:38 PM EDT This procedure does not contain a result. Please see the surgeon's note for official report. us Jignesh Hummel MD IMG FLUOROSCOPY PROCEDURES Fin al Result Performing Organization Address [facility] Co de Phone Number IMAGING * ND INJECT ANES/STEROID FORAMEN LUMBAR/SACRAL W IMG GUIDE [...] Patient's understanding of procedure matches consent: Yes Sacul Protocol: Procedure consent matches procedure scheduled: Yes [...] outpatient to the ambulatory injection suite at [facility]. Vital signs were monitored before and after [...] to obtain the completed interpretation. Workstation ID: [id number] Narrative 05/07/2025 4:39 PM EDT INDICATION: Lumbar [...] Bilateral mild foraminal stenosis. Resulting Agency Comment [id number] Procedure Note Aiden Wyatt MD - 05/07/2025 INDICATION: Lumbar radiculopathy, symptoms persist with > 6 wks [id number] - I10 - Spinal stenosis, lumbar region [...] possible to obtain thecompleted interpretation. Workstation ID: [id number] us Jignesh Hummel MD IMG MRI PROCEDURES Final Resul t from Last 3 Months Insurance [employer] Care Teams Lowerator Operator Relationship Specialty Start Date End Date Jose J Schaefer MD [address] [place] [id number] PCP - General Internal Medicine 03/01/25
--- OUTSIDE RECORDS SUMMARY | 2025-08-02 09:13 | XMS_ITS | Encounter Summary ---
Author Organization [employer] Address [address] [place] [address] Care Team Providers Care Roof Designer Name Role Phone Jose J Schaefer MD Primary Care Prov ider Reason for Visit * Reason Onset Date Comments Nurse Triage 08/01/2025 Encounter Details Date Type Department Care Team ([facility] Contact Info) Description 08/01/2025 Telephone [facility] MEDICINE [address] [place] [address] Jose J Schaefer MD [address] [place], [place] [id number] Nurse Triage Social History Tobacco Use Types Packs/Day Years [...] encounter Miscellaneous Notes * Telephone Encounter - Varsha Alicia RN - 08/01/2025 2:10 PM EST TC placed to pt via [employer] freelance interpreter/translator (ID#[id number]) for triage. Pt reports they have two health problemsof stomach discomfort for months and a disc hernia. Pt reports they were supposed to do an endoscopy, but they have to be evaluated by cardiology first. Pt reports they are scheduled for ECHO and walking test on 08/22/25. Pt reports they are still experiencing abdominal discomfort and swelling and have been for months. Pt reports abdominal swelling has improved a little since yesterday. Pt reports they are concerned as they believe a lot of their health issues are related to their stomach problem. Pt reports they will feel weak, will stand up and become dizzy, and then will have a low BP. Pt r eports they do experience dizziness upon standing. Pt denies fever, chills, nausea, vomiting, dizziness at time of call. Pt reports they spoke with provider in [facility] yesterday 07/31/25 who said they would be sending pantoprazole 40 MG for 1 tablet twice daily. Pt reports it was only sent as 1 tablet once daily and they were unable to pick the medication up from the pharmacy. Pt reports they can see their lab results inthe portal and would like for a provider to review. Advised message to be sent to ordering providerto review and advise regarding results and medication. Pt feels their care is a mess as they attempted to contact PCP without response and attempted to transfer to another provider without response. Pt feels their exams and medications are a mess. Writeroffered for senior account manager to contact pt regarding concerns and request for transfer. Pt declined. Pt reports they believe some of their prescriptions are incorrect. Avionics Installer went through prescriptions they were concerned about. Medications pt requesting to discuss including divaproex and propanolol matchedEMR. Pt reports the following medications are incorrect: pantoprazole, quetiapine, hydroxyzine. Pt reports the provider said they would be sending pantoprazole 40 MG for 1 tablet twice daily. Pt reports the hydroxyzine HCl 50 MG is only taken once in the morning and once in the evening, not three times daily. Pt reports quetiapine (seroquel) 100 MG was decreased to 1 tablet once daily. Pt reportsthey requested clonazepam 2 MG once daily in the morning. Pt reports they have not heard from provider. Advised message to be sent to PCP for review. Pt reports they have been experiencing pus/yellow fluid from anus. Pt reports when they wake up their anus is humid. Pt reports they go to the restroom to clean up and there is some stool and yellow fluid they believe is pus on the toilet paper. Pt reports they were seen in [facility] in June for issues with their anus and were sent to the ED where they had an abscess drained. Pt reports they were told the incision should heal after a week. Pt reports after 2 weeks, they began leaking yellow fluid.Pt reports it began as a little but has increased little by little since then. Pt reports they now are having to use the restroom to clean themself up at least 2 times daily. Advised pt to come to [facility] today for evaluation. Pt agreeable to plan. Pt requesting an appointment with PCP to review lab results, have follow up appointment, and correct/review prescriptions. Pt concerned they will not be able to have endoscopy done if they do not pass their exams with cardiology. Pt would like an appointment with PCP to discuss. Pt reports they will come to [facility] today for evaluation. RN spoke with Elizabeth Clayton MA regarding pt needing follow up booked with PCP. Elizabeth verbalized understanding. Protocol Used: No Protocol Available (Adult) Protocol-Based Disposition: See in Office or Video Visit Today Video visit offer not recorded Positive Triage Questions: * Nursing judgment * Patient wants to be seen * All higher-acuity triage questions were negative. Care Advice Discussed: * Reasons To Call Back - New symptoms develop - You become worse * Telephone Encounter - Abdon Hardy - 08/01/2025 12:12 PM EST Symptom: Abdominal Pain - Male Outcome: Schedule an urgent appointment (within 4 hours) or talk to a nurse or provider soon Reason: Fever Please contact pt at [phone] Need freelance interpreter/translator kimberly documented in this encounter Plan of Treatment Upcoming Encounters Date Type Department Care Team ([facility] st Contact Info) Description 08/23/2025 11:30 AM EST Office Visit [facility] MED & PEDS [address] [place] [address] Jsoe J Schaefer MD [address] [place] [address] documented as of this encounter Visit Diagnoses Not on filedocumented in this encounter Care Teams Roof Designer Relationship Specialty Start Date End Date Jose J Schaefer MD [address] [place] [address] PCP - General Internal Medicine 06/08/24 documented as of this encounter
--- OUTSIDE RECORDS SUMMARY | 2025-08-02 09:13 | XMS_ITS | Encounter Summary ---
Author Organization [employer] Address [address] [place] [address] Care Team Providers Care Hydroelectric Production Technician Name Role Phone Jose J Schaefer MD Primary Care Prov ider Encounter Details Date Type Department Care Team (Latest Contact Info) Description 08/01/2025 Travel Social History Tobacco Use Types Packs/Day [...] Description 08/23/2025 11:30 AM EST Office Visit [facility] MED & PEDS [address] [place] [address] Jose J Schaefer MD [address] [place] [address] documented as of this encounter Visit Diagnoses Not on filedocumented in this encounter Care Teams Hydroelectric Production Technician Relationship Specialty Start Date End Date Jose J Schaefer MD [address] [place] [address] PCP - General Internal Medicine 06/08/24 documented as of this encounter
--- OUTSIDE RECORDS SUMMARY | 2025-08-02 09:13 | XMS_ITS | Encounter Summary ---
Author Organization [employer] Address [address] [place] [address] Care Team Providers Care Managing Director [employer] Name Role Phone Jose J Schaefer MD Primary Care Prov ider Encounter Details Date Type Department Care Team (Late st Contact Info) Description 06/07/2025 Orders Only [facility] MED & PEDS [address] [place] [address] Jose J Schaefer MD [address] [place] [address] Anxiety; Bipolar 1 disorder (CMS/HCC) (HCC); Tobacco [...] Upcoming Encounters Date Type Department Care Team ([facility] st Contact Info) Description 08/23/2025 11:30 AM EST Office Visit [facility] MED & PEDS [address] [place] [address] Jose J Schaefer MD [address] [place] [address] documented as of this encounter Visit Diagnoses Diagnosis Anxiety Anxiety state, unspecified Bipolar 1 disorder (CMS/HCC) ([facility]) Tobacco use disorder documented in this encounter Care Teams Managing Director Atlas Relationship Specialty Start Date End Date Jose J Schaefer MD [address] [place] [address] PCP - General Internal Medicine 06/08/24 documented as of this encounter
--- OUTSIDE RECORDS SUMMARY | 2025-08-02 09:13 | XMS_ITS | Encounter Summary ---
Author Organization [employer] Address [address] [place] [address] Care Team Providers Care Adventure Guide Name Role Phone Jose J Schaefer MD Primary Care Prov ider Reason for Visit * Reason Onset Date Comments Referral 05/31/2025 Encounter Details Date Type Department Care Team ([facility] Contact Info) Description 05/31/2025 Telephone [facility] MED [facility] PEDS [address] [place] [address] Jose J Schaefer MD [address] [place] [address] Referral Social History Tobacco Use Types Packs/Day [...] 12:02 PM EDT Tc from Paty at [facility] endoscopy requesting for a referral for a ribbon cutter , so pt can have a cardiac work up before a upper endoscopy . It is needed expedited Contact Fernando S at [phone] Contact pt when referral is placed at [phone] ([email or web address]) documented in this encounter Plan of Treatment Upcoming Encounters Date Type Department Care Team (Late st Contact Info) Description 08/23/2025 11:30 AM EST Office Visit [facility] MED & PEDS [address] [place] [address] Jose J Schaefer MD [address] [place] [address] documented as of this encounter Visit Diagnoses Not on filedocumented in this encounter Care Teams Adventure Guide Relationship Specialty Start Date End Date Jose J Schaefer MD [address] [place] [address] PCP - General Internal Medicine 06/08/24 documented as of this encounter
[2025-08-02 11:29] LABS: Appearance Urine Clear; Glucose Urine UA Negative (Negative); PH 6.0 (5.0-9.0); Specific Gravity - Urine 1.010 (1.005-1.025)
[2025-08-02 12:20] LABS: Anion Gap 10 (12-20); Blood Urea Nitrogen 16 mg/dL (9-16); Calcium 8.9 mg/dL (8.4-10.2); Carbon Dioxide 27 mmol/L (22-29); Chloride 105 mmol/L (96-108); Estimated Glomerular Filt Rate > 60; Potassium 3.9 mmol/L (3.3-5.1); Sodium 138 mmol/L (135-145)
[2025-08-02 12:36] LABS: HIV Num 1 0.05 S/CO (0.00-0.99); ~HepC Num1 0.12 S/CO (0.00-0.79); ~Hepatitis C Antibody Nonreactive (Nonreactive)
[2025-08-02 15:31] LABS: CT PCR Urine NOT DETECTED (Not Detect.); NG PCR Urine NOT DETECTED (Not Detect.)
== END 2025-08-02 08:48 | disposition home or self-care (01) ==
LOC: HO.HHCL 08:47
PROVIDERS: Nurse Practitioner; Registered Nurse; PCP Internal Medicine
DX: Z20.2 Contact with and (suspected) exposure to infections with a predominantly sexual mode of transmission (principal); Z11.3 Encounter for screening for infections with a predominantly sexual mode of transmission; Z11.59 Encounter for screening for other viral diseases; R82.998 Other abnormal findings in urine; K61.0 Anal abscess; R79.89 Other specified abnormal findings of blood chemistry
CPT/HCPCS: 36415; 80048; 81001; 86592; 86803; 87389; 87491; 87591